=== PATIENT | female | born 1940 | race Caucasian/White ===

== ENCOUNTER 2018-06-05 07:11 | Day surgery (SDC) | payer OTHER, BC ==
[2018-06-05] MEDS ORDERED: LIDOCAINE 2% MPF 5 ML VIAL ONE (08:01)
[2018-06-05] MEDS ORDERED: TETRACAINE HCL 0.5% 2ML OPTH ONE (08:01)
[2018-06-05] MEDS ORDERED: BUPIVACAINE 0.25% PF 10 ML VIAL ONE (08:01)
[2018-06-05] MEDS: CYCLOPENTOLATE 1% OPTH 2 ML ONE ×3 (08:11→08:30)
[2018-06-05] MEDS: PHENYLEPHRINE 10% OPTH 5ML ONE ×3 (08:11→08:30)
[2018-06-05] MEDS ORDERED: NA CHLORIDE 0.9% 500 ML ONE (08:13)
[2018-06-05] MEDS ORDERED: LIDOCAINE HCL/PF 3.5% OPTH GEL ONE (08:13)
[2018-06-05] MEDS ORDERED: DUOVISC 1 KIT OPTH ONE (08:21)
[2018-06-05] MEDS ORDERED: NS 0.9% VIAL 10 ML ONE (08:21)
[2018-06-05] MEDS ORDERED: EPINEPHRINE/PF 1 MG/ML AMP ONE (08:21)
[2018-06-05] MEDS ORDERED: BALANCED SALT IRRIG PLAIN 500 ML BTL IRR ONE (08:21)
[2018-06-05] MEDS ORDERED: MOXIFLOXACIN HCL 10 DROPS/ML **OR USE OPTH ONE (08:22)
[2018-06-05] MEDS ORDERED: LIDOCAINE 1% MPF 2 ML AMPULE ONE (08:22)
[2018-06-05] MEDS ORDERED: MIDAZOLAM HCL 2 MG/2 ML INJ ONE (09:01)
[2018-06-05] MEDS ORDERED: FENTANYL CITR 100 MCG/2 ML ONE (09:01)
--- NOTE | 2018-06-05 10:08 | P.BOP ---
Preoperative diagnosis: Nuclear sclerotic and posterior subcapsular cataract OS Postoperative diagnosis: Same Primary procedure: Phacomeulsification with IOL OS Estimated blood loss: None Anesthesia: Local (Topical with subconjunctiva supplement and anesthesia for cataract surgery) Complications: None Implants: [id number] +20.5 @175 Transferred to: Other (Day surgery) Condition: Good
[2018-06-05 10:49] VITALS: BP 130/68; TEMP 97.8; O2SAT 100
--- NOTE | 2018-06-05 20:50 | OP ---
Date of Procedure: 06/05/2018 Surgeon: Bethanie Butler MD Anesthesiologist: Jade Smith CRNA and Isaac Crowell MD. Preoperative Diagnoses: Nuclear sclerotic cataract and posterior subcapsular cataract, left eye. Operation Performed: Phacoemulsification with intraocular lens implant, left eye. Anesthesia: Per cataract surgery. Complications: None. Description Of Procedure: In the operating room the patient was prepped and draped in the usual sterile fashion for ophthalmic surgery. A lid speculum was placed in the left eye. Two paracentesis sites were made superiorly and inferiorly in the limbal cornea. Viscoat was placed in the anterior chamber and a crescent blade was used to make a corneal groove and tunnel, and a keratome was used to enter the anterior chamber. Provisc was placed in the anterior chamber and a 360 degree capsulotomy was performed with a cystitome. The lens was hydrodissected with BSS and rotated freely. The lens was removed with a stop and chop technique. 14.54 phaco CDE was used to remove the lens. Residual cortex was removed with the irrigation and aspiration. Provisc was placed in the capsular bag. A VMD131 +20.5 at 175 lens was placed in the capsular bag without complications. Irrigation and aspiration were used to remove residual viscoelastic. The paracentesis sites were hydrated with BSS. The wound and paracentesis sites were inspected and found to be watertight. Vigamox 0.07 cc was placed intracamerally at the end of the procedure. The eye was irrigated with balanced salt solution. The eye was patched with a soft cotton patch and Azar metal shield. The patient was returned to day surgery in good condition. Comments: Akten was placed in the eye in day surgery and irrigated out of the eye with BSS in the OR. Preservative free 1% lidocaine was placed in the anterior chamber prior to Viscoat. The patient was having some discomfort in the middle of phacoemulsification despite the addition of Tetracaine drops and more 1% preservative free lidocaine intracamerally. The anesthesia was supplemented with 2% xylocaine mixed 50:50 with 0.25% bupivacaine. This was injected in the inferior conjunctiva with a 27 gauge needle. Discharge Instructions: Ms. Whelan is discharged to home in good condition and is to follow up with Dr. Butler in the morning. JHL/MODL Voice ID: [id number] Report ID: [id number] MTDD
== END 2018-06-05 10:36 | disposition home or self-care (01) ==
LOC: OR 07:11
PROVIDERS: ATTEND Ophthalmology Retina Specialist
PROC: 08RK3JZ Replacement of Left Lens with Synthetic Substitute, Percutaneous Approach (ICD-10-PCS; principal; 2018-06-05 09:10)
DX: H25.12 Age-related nuclear cataract, left eye (principal); H25.042 Posterior subcapsular polar age-related cataract, left eye; I10 Essential (primary) hypertension; M19.90 Unspecified osteoarthritis, unspecified site; E78.00 Pure hypercholesterolemia, unspecified; E07.9 Disorder of thyroid, unspecified; Z79.82 Long term (current) use of aspirin; Z87.891 Personal history of nicotine dependence
CPT/HCPCS: 66984; J0171; J2001; J3010; J2250; V2787

== ENCOUNTER 2018-08-28 06:56 | Day surgery (SDC) | payer OTHER, BC ==
[~2018-08-28 06:56] MED LIST: MORPHINE 4 MG/ML SYR ONE
[2018-08-28] MEDS ORDERED: NA CHLORIDE 0.9% 500 ML ONE (07:12)
[2018-08-28] MEDS ORDERED: CYCLOPENTOLATE 1% OPTH 2 ML ONE (07:19)
[2018-08-28] MEDS ORDERED: LIDOCAINE 2% MPF 5 ML VIAL ONE ×2 (07:19→09:03)
[2018-08-28] MEDS ORDERED: PHENYLEPHRINE 10% OPTH 5ML OPTH ONE ×2 (07:20→07:32)
[2018-08-28] MEDS ORDERED: PHENYLEPHRINE 10% OPTH 5ML ONE (07:20)
[2018-08-28] MEDS ORDERED: TETRACAINE HCL 0.5% 4ML OPTH ONE (07:20)
[2018-08-28] MEDS ORDERED: BUPIVACAINE 0.25% PF 10 ML VIAL ONE (07:20)
[2018-08-28] MEDS ORDERED: CYCLOPENTOLATE 1% OPTH 2 ML OPTH ONE ×2 (07:25→07:32)
[2018-08-28] MEDS ORDERED: NS 0.9% VIAL 10 ML ONE (08:15)
[2018-08-28] MEDS: DUOVISC 1 KIT OPTH ONE ×2 (08:28→08:38)
[2018-08-28] MEDS: BALANCED SALT IRRIG PLAIN 500 ML BTL IRR ONE ×2 (08:28→08:38)
[2018-08-28] MEDS: EPINEPHRINE/PF 1 MG/ML AMP ONE ×2 (08:28→08:38)
[2018-08-28] MEDS: MOXIFLOXACIN HCL 10 DROPS/ML **OR USE OPTH ONE ×3 (08:29→08:57)
[2018-08-28] MEDS ORDERED: PROPOFOL 200 MG/20 ML VIAL IV ONE (09:03)
--- NOTE | 2018-08-28 09:04 | P.BOP ---
Preoperative diagnosis: Nuclear sclerotic and posterior subcapsular cataract OD Postoperative diagnosis: Same Primary procedure: Phacoemulsification with IOL OD Estimated blood loss: None Anesthesia: Local (Subtenon's infusion with anesthesia for cataract surgery) Complications: None Implants: [id number] +21.0 Transferred to: Other (Day surgery) Condition: Good
[2018-08-28 09:49] VITALS: BP 123/59; TEMP 97.8; O2SAT 98
--- NOTE | 2018-08-28 21:03 | OP ---
Date of Procedure: 08/28/2018 Surgeon: Bethanie Butler MD Anesthesiologist: Lizbet Cortez CRNA and Jax Ritchie MD. Preoperative Diagnosis: Nuclear sclerotic and posterior subcapsular cataract, OD (right eye). Operation Performed: Phacoemulsification with intraocular lens implant, OD, right eye. Anesthesia: Per cataract surgery. Complications: None. Description Of Procedure: In day surgery, the patient was prepped with Betadine and draped. A conjunctival incision was made in the inferior nasal quadrant with Narcisa scissors. A sub-Tenon block consisting of a 1:1 mixture of 2% Xylocaine and 0.25% bupivacaine was placed through the conjunctival incision with a blunt cannula. A Honan balloon was placed over the eye and the patient was transferred to the operating room. In the operating room the patient was prepped and draped in the usual sterile fashion for ophthalmic surgery. A lid speculum was placed in the right eye. Two paracentesis sites were made superiorly and inferiorly in the limbal cornea. Viscoat was placed in the anterior chamber and a crescent blade was used to make a corneal groove and tunnel, and a keratome was used to enter the anterior chamber. Provisc was placed in the anterior chamber and a 360 degree capsulotomy was performed with a cystitome. The lens was hydrodissected with BSS and rotated freely. The lens was removed with a stop and chop technique. 13.90 phaco CDE was used to remove the lens. Residual cortex was removed with the irrigation and aspiration. Provisc was placed in the capsular bag. A ZCB00 +21.0 lens was placed in the capsular bag without complications. Irrigation and aspiration were used to remove residual viscoelastic. The paracentesis sites were hydrated with BSS. The wound and paracentesis sites were inspected and found to be watertight. Vigamox 0.07 cc was placed intracamerally at the end of the procedure. The eye was irrigated with balanced salt solution. The eye was patched with a soft cotton patch and Azar metal shield. The patient was returned to day surgery in good condition. Comments: Discharge Instructions: Ms. Whelan is discharged to home in good condition and is to follow with Dr. Butler in the morning. ANDREA/GABRIELLE Voice ID: [id number] Report ID: [id number] MTDD
== END 2018-08-28 09:25 | disposition home or self-care (01) ==
LOC: OR 06:56
PROVIDERS: ATTEND Ophthalmology Retina Specialist
PROC: 08RJ3JZ Replacement of Right Lens with Synthetic Substitute, Percutaneous Approach (ICD-10-PCS; principal; 2018-08-28 08:30)
DX: H25.11 Age-related nuclear cataract, right eye (principal); H25.041 Posterior subcapsular polar age-related cataract, right eye; I10 Essential (primary) hypertension; E78.00 Pure hypercholesterolemia, unspecified; Z79.899 Other long term (current) drug therapy
CPT/HCPCS: 66984; J2704; J0171

== ENCOUNTER 2021-11-10 05:50 | Observation (INO) | payer OTHER, BC ==
--- NOTE | 2021-11-04 10:20 | RAD REPORT ---
EXAM DESCRIPTION: Octaviano Rollins And Kaylene (2 Views)11/04/2021 9:45 am CLINICAL HISTORY: Preop for knee replacement. Hypertension COMPARISON: 2019 FINDINGS: Lungs are mildly to moderately hyperaerated. The lungs appear clear of acute infiltrate. The heart is normal size IMPRESSION: No acute abnormalities displayed
[2021-11-04 13:23] LABS: Urine Appearance CLEAR (Clear); Urine Bilirubin NEGATIVE (Negative); Urine Blood NEGATIVE (Negative); Urine Color YELLOW (Yellow); Urine Glucose NEGATIVE (Negative); Urine Protein NEGATIVE (Negative); Urine Specific Gravity >1.030 (1.005-1.030); Urine Urobilinogen 0.2 mg/dL (0.2-1.0); Urine pH 5.5 (5.0-7.0)
[2021-11-04 13:24] LABS: Urine Microscopic Reflex ORDER UMIC
[2021-11-04 13:41] LABS: Urine Bacteria <20 /HPF (<20); Urine Mucus 1+ /HPF (NONE SEEN); Urine RBC <5 /HPF (NONE SEEN)
[2021-11-09 09:27] LABS: Protime INR 1.04
[2021-11-10] MEDS ORDERED: CEFAZOLIN 2 GM IN 0.9% NACL 2 GM/100 ML BAG ONE (06:08)
[2021-11-10] MEDS ORDERED: Ringers Lactate 1,000 ML IV ONE ×2 (06:08→08:03)
[2021-11-10] MEDS ORDERED: GABAPENTIN 100 MG CAP ONE (06:09)
[2021-11-10] MEDS ORDERED: Oxycodone HCl/Acetaminophen 1 TAB TAB ONE (06:10)
[2021-11-10] MEDS ORDERED: CELECOXIB 100 MG CAPSULE ONE (06:10)
[2021-11-10] MEDS ORDERED: ACETAMINOPHEN 500 MG TAB ONE (06:10)
[2021-11-10] MEDS ORDERED: MIDAZOLAM HCL 2 MG/2 ML INJ ONE (06:13)
[2021-11-10] MEDS ORDERED: FENTANYL CITR 100 MCG/2 ML ONE (06:13)
[2021-11-10] MEDS ORDERED: NS 0.9% VIAL 10 ML ONE (06:13)
[2021-11-10] MEDS ORDERED: ONDANSETRON 4 MG/2 ML VIAL ONE (06:13)
[2021-11-10] MEDS ORDERED: KETAMINE HCL 500 MG/5 ML VIAL ONE (06:13)
[2021-11-10] MEDS ORDERED: LIDOCAINE 2% MPF 5 ML VIAL ONE ×2 (06:13→06:21)
[2021-11-10] MEDS ORDERED: propofoL 200 MG/20 ML VIAL IV ONE (06:13)
[2021-11-10] MEDS ORDERED: dexAMETHasone 4 MG/ML VIAL ONE (06:21)
[2021-11-10] MEDS ORDERED: BUPIVACAINE 0.25% PF 10 ML VIAL ONE (06:21)
[2021-11-10] MEDS ORDERED: HYDROMORPHONE HCL 1 MG/ML INJ ONE (06:21)
[2021-11-10] MEDS ORDERED: BUPIVACAINE 0.5% Inj,MDV 50 mL VIAL ONE (06:22)
[2021-11-10] MEDS ORDERED: EPHEDRINE SULF 50 MG/ML VIAL ONE (07:25)
[2021-11-10] MEDS: TRANEXAMIC ACID 1,000 MG/10 ML VIAL IV ONE ×2 (07:35→09:30)
[2021-11-10] MEDS ORDERED: KETOROLAC 30 MG/ML INJ ONE (09:30)
[2021-11-10] MEDS ORDERED: ONDANSETRON 4 MG/2 ML VIAL IV PRN (09:31)
[2021-11-10] MEDS ORDERED: HYDROCODONE/APAP 7.5/325 MG TAB PO PRN (09:31)
[2021-11-10] MEDS ORDERED: DOCUSATE NA 100 MG CAP PO PRN (09:31)
--- NOTE | 2021-11-10 09:31 | P.BOP ---
Preoperative diagnosis: right knee arthritis Postoperative diagnosis: same Primary procedure: right total knee arthoplasty Estimated blood loss: 100c Anesthesia: General Complications: None Transferred to: Recovery Room Condition: Good
--- OUTSIDE RECORDS SUMMARY | 2021-11-10 11:12 | XMS REPORT | Continuity of Care Document ---
:1940 Author Organization [facility] t Address [address] [place] [address] Care Team Providers Name Role Phone [phone] Attending Clinician Unavailable Atif Attending Clinician Unavailable Doctor Unassigned, Name Attending Clinician Unavailable HENRIETTA KAMARA Attending Clinician Unavailable [id number] Admitting Clinician Unavailable HENRIETTA KAMARA Admitting Clinician Unavailable Payers Payer Name Policy Type Policy Number Effective Date Expiration Date S ource Problems Condition Condition Condition Status Onset Resolution Last Treating Co mments Source Name Details Category Date Date Treatment Clinician Date Post-op Post-op Disease Active 2018-05 [facility] pain pain 0-09 ity of 00:00: [address] Screening Screening Disease Active 2016-05 Overview: Univers for for 0-19 Added ity of colorectal colorectal 00:00: automatic [place] cancer cancer 00 ally from Medical request Branch for surgery [id number] 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 Allergies, Adverse Reactions, Alerts Allergy Allergy Status Severity Reaction(s) Onset Inactive Treating Comm ents Source Name Type Date Date Clinician NO KNOWN Drug Active Univers ALLERGIE Class ity of S [facility] Social History Social Habit Start Date Stop Date Quantity Comments Source History of tobacco Cigarette Smoker [place] of use [facility] Cigarettes smoked 2019-02-22 2019-02-22 Univers ity of current (pack per 00:00:00 00:00:00 ) - Reported Branch Alcohol intake 2019-02-22 2019-02-22 University of 00:00:00 00:00:00 [facility] Tobacco Comment 2019-02-21 2019-02-21 Quit 1974 Universit y of 00:00:00 00:00:00 [facility] Alcohol Comment 2019-02-21 2019-02-21 infrequently Univers ity of 00:00:00 00:00:00 [facility] Smoking Status Start Date Stop Date Source Former smoker 2019-02-22 00:00:00 2019-02-22 00:00:00 Universi ty of [facility] Medications Ordered Filled Start Stop Current Ordering Indication Dosage Frequency Signature Comments Components Source Medication Medication Date Date Medication? Clinician (SIG) Name Name No known No [facility] No known No [facility] medications [facility] Procedures Procedure Date / Time Performed Performing Clinician [facility] e REFERRAL- 2019-06-13 06:01:00 Doctor Unassigned, Anita Tellezer [facility] REQUEST/RESPONSE Name [facility] Encounters Start End Encounter Admission Attending Care Care Encounter Source Date/Time Date/Time Type Type Clinicians Facility Department ID 2021-11-09 Outpatient 3 [id number] [facility] REF [id number] [facility] 11:41:07 062021-11-04 Outpatient 3 [id number] [facility] REF [id number] [facility] 09:15:31 6212021-11-04 Outpatient SHELBY Srivastava [facility] [id number] Common 08:04:01 [facility] 2021-08-31 Outpatient [facility] [id number] Common 13:30:03 [facility] 2021-08-13 Outpatient [facility] [id number] Common 14:16:02 [facility] 2019-07-26 2019-07-26 Patient Doctor SAI [id number] Univers 00:00:00 00:00:00 Secure Msnilay UnassignedARI [id number] ity of [facility] [id number] [place] as [id number] [facility] [address] 2019-07-26 2019-07-26 Patient Doctor SAI [id number] 00:00:00 00:00:00 Secure Msg Unassigned, ARI [id number] [facility] [id number] [id number] 2019-07-04 2019-07-04 Patient Doctor [facility] [[email or web address]] [id number] Univers 00:00:00 00:00:00 Secure Msg Unassigned, PRIMARY [id number] ity [place] [facility] [id number] [facility] [id number] [address] 2019-07-04 2019-07-04 Patient Doctor [facility] [[email or web address]] [id number] 00:00:00 00:00:00 Secure Msg Unassigned, PRIMARY [id number] [facility] [id number] [facility] [id number] 2019-06-13 2019-06-13 Orders Doctor SAI [id number] Univers 00:00:00 00:00:00 Only Unassigned, ARI [id number] [facility] [id number] [place] as [id number] [facility] [address] 2019-06-13 2019-06-13 Orders Doctor SAI [id number] 00:00:00 00:00:00 Only Unassigned, ARI [id number] [facility] [id number] 2019-02-21 2019-02-22 Outpatient R ASAD, [facility] [[email or web address] SOR [id number] Univers 08:12:00 16:29:00 IMELDA martinez of [facility] Results This patient has no known results.
[2021-11-10] MEDS: HYDROMORPHONE HCL 1 MG/ML INJ ONE ×3 (11:20→11:30)
[2021-11-10 11:56] VITALS: BMI 26.1
[2021-11-10] MEDS ORDERED: DICLOFENAC SODIUM TOP PRN (15:23)
--- NOTE | 2021-11-10 15:23 | P.CNS ---
Date of Consult: 11/10/21 Reason for Consult: Medical management Requesting Physician: Randy Prather Chief Complaint: Patient was admitted for left total knee arthroplasty History of Present Illness: patient is a 81-year-old female who was admitted to the hospital for left total knee arthroplasty. Patient has a history of hypertension, hypothyroidism, dyslipidemia, but she has been doing well medically. She has been having arthritic pain in the left knee for a long time so she decided to have a knee replacement. She has done well postoperatively. Clinically she appears to be doing well. She will work with physical therapy. Will do DVT prophylaxis. Also patient will need pain control. Will monitor her for the next 24-48 hours if she does well we will discharge her with home health. Allergies No Known Drug Allergies Allergy (Verified 11/10/21 06:46) Unknown Home Medications: Acetaminophen [Tylenol Arthritis] 2 tab PO Q8HP PRN 11/04/21 Acetaminophen/Diphenhydramine [Tylenol Pm Ex-Strength Caplet] 1 each PO BEDTIME 11/04/21 Amlodipine Besylate 5 mg PO BEDTIME 11/04/21 Aspirin [Aspirin EC 81 MG] 81 mg PO DAILY 11/04/21 Diclofenac Sodium [Voltaren Arthritis Pain] 1 ashley TP PRN PRN 11/04/21 Donepezil [Aricept] 5 mg PO BEDTIME 11/04/21 Ginkgo/Choline Bitartrate [Brainstrong Memory Supp Caplet] 1 each PO DAILY 11/04/21 Levothyroxine Sodium [Levoxyl] 0.075 mg PO DAILY 11/04/21 Lovastatin [Altoprev] 20 mg PO BEDTIME 11/04/21 Olmesartan Medoxomil 20 mg PO BEDTIME 11/04/21 - Past Medical/Surgical History Diabetic: No -: HTN -: Hypothroid -: Hyperlipidemia -: Carpel Tunnel -: eye surgery (cannot remember) - Family History Mother Notes: Alzheimers, lived into 90's Father Medical History: Heart disease - Social History Smoking Status: Former smoker Alcohol use: Yes CD- Drugs: No Caffeine use: Yes Place of Residence: Home Review of Systems 10-point ROS is otherwise unremarkable Physical Examination Temp Pulse Resp BP Pulse Ox 98 F 89 14 116/58 L 95 11/10/21 11:02 11/10/21 11:53 11/10/21 11:53 11/10/21 11:53 11/10/21 11:53 General: Alert, In no apparent distress, Oriented x3 HEENT: Atraumatic, PERRLA, Mucous membr. moist/pink, EOMI, Sclerae nonicteric Neck: Supple, 2+ carotid pulse no bruit, No LAD, Without JVD or thyroid abnormality Respiratory: Clear to auscultation bilaterally, Normal air movement Cardiovascular: Regular rate/rhythm, Normal S1 S2 Gastrointestinal: Normal bowel sounds, No tenderness Musculoskeletal: No clubbing, Swelling, Tenderness Neurological: Normal gait, Normal speech, Normal tone, Normal affect Lymphatics: No axilla or inguinal lymphadenopathy - Problems (1) History of total left knee replacement Current Visit: Yes Status: Acute (2) HTN (hypertension) Current Visit: Yes Status: Acute (3) Hypothyroid Current Visit: Yes Status: Acute (4) Dyslipidemia Current Visit: Yes Status: Acute Conclusions/ Impression: -management per Orthopedic surgery -PT evaluation -DVT prophylaxis -advanced diet as tolerated -strict blood pressure control -monitor electrolytes and blood count closely -Dc Greer catheter in 24 hr -pain control Critical Care: No Time Spent Managing Pts care (In Minutes): 45
[2021-11-10] MEDS: CEFAZOLIN 1 GM in NA CHLORIDE 0.9% 50 ML IVPB SCH (15:58)
[2021-11-10] MEDS ORDERED: ACETAMINOPHEN 325 MG TABLET PO PRN (16:52)
[2021-11-10] MEDS ORDERED: VALSARTAN 80 MG TAB PO SCH (21:00)
[2021-11-10] MEDS ORDERED: ATORVASTATIN 10 MG TAB PO SCH (21:00)
[2021-11-10] MEDS ORDERED: ACETAMINOPHEN 325 MG TABLET PO SCH (21:00)
[2021-11-10] MEDS ORDERED: AMLODIPINE 5 MG TAB PO SCH (21:00)
[2021-11-10] MEDS ORDERED: DONEPEZIL HCL 5 MG TAB PO SCH (21:00)
[2021-11-10] MEDS ORDERED: ACETAMINOPHEN 500 MG TAB PO SCH (21:00)
[2021-11-10] MEDS ORDERED: DIPHENHYDRAMINE 25 MG TAB/CAP PO SCH (21:00)
--- NOTE | 2021-11-10 21:35 | OP ---
Date of Procedure: 11/10/2021 Surgeon: Randy Prather MD Preoperative Diagnosis: Left knee severe arthritic changes. Postoperative Diagnosis: Left knee severe arthritic changes. Procedure: Left total knee arthroplasty using the Biomet Vanguard System. Estimated Blood Loss: 100 cc. Complications: There were no complications. Indications: Ms. Whelan is an 81-year-old female who unfortunately suffers with debilitating arthrit ic symptoms as well as arthritis of her knee despite conservative management. Risks, benefits, and a lternatives of different methods treatments were again discussed with her and at this time, she opts for a total knee arthroplasty and the specific risks were discussed regarding this as well. She stat es she understands things as presented. Procedure In Detail: The patient was taken to the operating room, placed in supine position. Genera l anesthesia was obtained by Anesthesia staff. Following this, a well-padded tourniquet was placed o n superior left thigh. Left lower extremity was then prepped and draped in usual sterile fashion for the procedure. Following this the leg was then elevated, gently exsanguinated, and knee was bent. Tourniquet was raised. A standard anterior incision was taken down carefully through skin and soft t issues. Meticulous hemostasis has been maintained using Bovie electrocautery. This leads down to th e extensor mechanism. The superomedial border of the patella was then marked and a standard medial p arapatellar arthrotomy was then performed with approximately 20 cc of rather normal-appearing synovia l fluid. Following this, a slight amount of the fat pad as well as the medial meniscus and ACL were resected. The knee was then brought to extension and the patella was everted. The medial and latera l meniscus were then resected as well as the posterior cruciate ligament. The intramedullary alignme nt guide was then placed in standard fashion. After this it was then sized to a size 62.5. The cuts were made and attention was then turned to the tibia. The tibia was then cut at appropriate depth a nd sized to a size 75. It is possible that we could have used a 79, however, this appeared to overha ng and was just a little bit too large. Following this, the trial tibia was then placed and it was b rought down to extension. It appears to have equal flexion and extension gaps and appears to be well aligned. The patella was calipered and cut and the trial patella was then placed. The knee was the n brought through full range of motion with no sign of patellar maltracking. After this, the box was then cut in the femur using standard technique and the bone plug was placed. The tibia was punched and the surfaces were prepped for cementation. After this, the final patella, femur and tibia are th en cemented using the trial poly as the spacer. After the cement was allowed to harden and all unsup ported cement was removed, the knee was brought through full range of motion. Patella appears to tra ck ideally. It appears to be stable to stress testing. It is assessed for any more aberrant cement. The final poly was then placed and locked using the locking bar. It was then brought through a ful l range of motion and appears to be functioning well. The wound was again irrigated and the extensor mechanism was repaired using heavy Ethibond sutures and this was followed by closure of skin with Vi cryl followed by clifford. The patient was then placed in a well-padded sterile dressing. /GABRIELLE Voice ID: [id number] Report ID: [id number]
[2021-11-11] MEDS: CEFAZOLIN 1 GM in NA CHLORIDE 0.9% 50 ML IVPB SCH ×2 (00:10→08:27)
[2021-11-11 04:43] LABS: Hematocrit 34.3 % (36.0-45.0)
[2021-11-11] MEDS: ENOXAPARIN 30 MG/0.3 ML SQ SCH ×2 (06:09→17:51)
[2021-11-11] MEDS ORDERED: LEVOTHYROXINE SOD 0.075 MG TAB PO SCH (09:00)
[2021-11-11] MEDS ORDERED: [UNRECOGNIZED DRUG - OTHER] PO SCH (09:00)
[2021-11-11] MEDS ORDERED: GINKGO PO SCH (09:00)
[2021-11-11 12:04] VITALS: O2SAT 94
--- NOTE | 2021-11-11 15:27 | P.DS ---
Discharge Date: 11/11/21 Disposition: TRANSFER TO INPATIENT REHAB Discharge Condition: GOOD Reason for Admission: Patient was admitted for left total knee arthroplasty - Problems (1) History of total left knee replacement Current Visit: Yes Status: Acute (2) HTN (hypertension) Current Visit: Yes Status: Acute (3) Hypothyroid Current Visit: Yes Status: Acute (4) Dyslipidemia Current Visit: Yes Status: Acute Brief History of Present Illness: patient is a 81-year-old female who was admitted to the hospital for left total knee arthroplasty. Patient has a history of hypertension, hypothyroidism, dyslipidemia, but she has been doing well medically. She has been having arthritic pain in the left knee for a long time so she decided to have a knee replacement. She has done well postoperatively. Clinically she appears to be doing well. She will work with physical therapy. Will do DVT prophylaxis. Also patient will need pain control. Will monitor her for the next 24-48 hours if she does well we will discharge her with home health. Hospital Course: Patient has done well during hospital stay. Patient is working with physical therapy. [facility]. Patient will continue with anticoagulation and pain control and will follow-up with orthopedic in 1 week. Vital Signs/Physical Exam: Temp Pulse Resp BP Pulse Ox 96.2 F L 75 16 116/50 L 97 11/11/21 12:00 11/11/21 12:00 11/11/21 12:29 11/11/21 12:00 11/11/21 12:29 General: Alert, In no apparent distress, Oriented x3 Laboratory Data at Discharge: Hgb 11.7 g/dL (12.0-15.0) L 11/11/21 04:14 Hct 34.3 % (36.0-45.0) L 11/11/21 04:14 PT 11.4 SECONDS (9.5-12.5) 11/09/21 08:54 INR 1.04 11/09/21 08:54 APTT 35.7 SECONDS (24.3-36.9) 11/09/21 08:54 Home Medications: Acetaminophen [Tylenol Arthritis] 2 tab PO Q8HP PRN 11/04/21 Acetaminophen/Diphenhydramine [Tylenol Pm Exstr 500-25Mg Cplt] 1 each PO BEDTIME 11/04/21 Amlodipine Besylate 5 mg PO BEDTIME 11/04/21 Aspirin [Aspirin EC 81 MG] 81 mg PO DAILY 11/04/21 Diclofenac Sodium [Voltaren Arthritis Pain] 1 ashley TP PRN PRN 11/04/21 Donepezil [Aricept*] 5 mg PO BEDTIME 11/04/21 Ginkgo/Choline Bitartrate [Brainstrong Memory Supp Caplet] 1 each PO DAILY 11/04/21 Levothyroxine Sodium [Levoxyl] 0.075 mg PO DAILY 11/04/21 Lovastatin [Altoprev] 20 mg PO BEDTIME 11/04/21 Olmesartan Medoxomil 20 mg PO BEDTIME 11/04/21 Hydrocodone 7.5/APAP 325 [Pender 7.5/325 mg*] 1 tab PO Q4H PRN #30 tab 11/11/21 Rivaroxaban [Xarelto] 10 mg PO DAILY #20 tablet 11/11/21 New Medications: Hydrocodone 7.5/APAP 325 [Pender 7.5/325 mg*] 1 tab PO Q4H PRN #30 tab PRN Reason: Pain Scale 8-10 (Severe) Rivaroxaban [Xarelto] 10 mg PO DAILY #20 tablet Physician Discharge Instructions: -DC IV and [facility] to [facility] -Follow-up with PCP in 1 to 2 weeks -Follow-up with orthopedics in 1 to 2 weeks -Please call Dr. Somers at [phone] if any questions regarding hospital stay -Please call nursing station at [phone] if any nursing or medication questions -Return to the emergency room if symptoms worsen Diet: AHA Activity: Fall precautions Followup: Feroz Srivastava MD [Primary Care Provider] - Time spent managing pt's care (in minutes): 35
[2021-11-11 16:11] VITALS: BP 102/52; TEMP 96.3
[2021-11-12] MEDS ORDERED: ASPIRIN EC 81 MG TAB PO SCH (09:00)
== END 2021-11-11 18:42 ==
LOC: OR 05:50 → 4TH 11:09 → INTOOBSV 11:09
PROVIDERS: ADMIT Orthopaedic Surgery; ATTEND Orthopaedic Surgery
PROC: 0SRD069 Replacement of Left Knee Joint with Oxidized Zirconium on Polyethylene Synthetic Substitute, Cemented, Open Approach (ICD-10-PCS; principal; 2021-11-11)
DX: M17.12 Unilateral primary osteoarthritis, left knee (principal); I10 Essential (primary) hypertension; E03.9 Hypothyroidism, unspecified; E78.5 Hyperlipidemia, unspecified; Z79.01 Long term (current) use of anticoagulants; Z79.82 Long term (current) use of aspirin; Z79.899 Other long term (current) drug therapy; Z87.891 Personal history of nicotine dependence; Z20.822 Contact with and (suspected) exposure to COVID-19; Z82.0 Family history of epilepsy and other diseases of the nervous system; Z82.49 Family history of ischemic heart disease and other diseases of the circulatory system; Z83.2 Family history of diseases of the blood and blood-forming organs and certain disorders involving the immune mechanism
CPT/HCPCS: 87088; 87086; 36415 ×2; 86900; 86850; 85610; 86901; 88304; 88311; 85730; 85018; 85014; 71046; 97110; 97116 ×3; 97139; 97161; 97530 ×4; 94010 ×2; 27447; U0003; G0379; J2704; J1100; J1650 ×2; J2250; J3010; J1170 ×2; J0690 ×4; J7120 ×2; J2405 ×2; G0378 ×2; 81003; 81015

== ENCOUNTER 2022-03-29 10:19 | Emergency (ER) | payer OTHER, BC ==
--- OUTSIDE RECORDS SUMMARY | 2022-03-29 10:25 | XMS REPORT | Continuity of Care Document ---
:1940 Author Organization [facility] t Address [address] [place] [address] Care Team Providers Name Role Phone Dmitriy Srivastava Attending Clinician Unavailable [id number] Attending Clinician Unavailable Wolfgang Le Attending Clinician Isak Hernadez Anavella Attending Clinician Unava ilable Doctor Unassigned, [place] Attending Clinician Unavailable IMELDA KAMARA Attending Clinician Unavailable [id number] Admitting Clinician Unavailable Kingston Hernadez Anav Admitting Clinician Unavailable IMELDA KAMARA Admitting Clinician Unavailable Payers Payer Name Policy Type Policy Number Effective Date Expiration Date Carol Ann singletary Blue [employer] 6 [id number] 2017 [facility] t Blue Shield of 00:00:00 - [facility] [id number] BCTI BCTI [id number] Problems Condition Condition Condition Status Onset Resolution Last Treating Co mments Source Name Details Category Date Date Treatment Clinician Date Post-op Post-op Disease Active 2018-05 Univers pain pain 0-09 ity of 00:00: [place] 00 Medical Branch Screening Screening Disease Active 2016-05 Overview: Univers for for 0-19 Added ity of colorectal colorectal 00:00: automatic [place] cancer cancer 00 ally from Medical request Branch for surgery [id number] Actinic Actinic Disease Active Univers keratosis keratosis 7-25 ity of 00:00: [place] Medical [facility] Carcinoma Carcinoma Disease Active Overview: 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 REG, Medical Abstracte r [id number]: [id number] Diagnosis Term Event Manager Utility Confusiona Confusion Problem Active 2022-01-02 Memoria l state al state 23:01:43 l (disorder) (disorder) He rmann Active Problem 01/02/2022 [facility] Hyperlipid Hyperlipi Problem Active 2022-01-02 Memoria emia demia 23:01:43 l (disorder) (disorder) He rmann Active Problem 01/02/2022 [facility] Hypertensi Hypertens Problem Active 2022-01-02 Memoria ve adilene 23:01:43 l disorder, disorder, Herm darwin systemic systemic arterial arterial (disorder) (disorder) Active Problem 01/02/2022 [facility] Hypothyroi Problem Active 2022-01-02 M emoria dism Hypothyroi 23:01:43 l (disorder) dism Vasquez n (disorder) Active Problem 01/02/2022 [facility] Tremor Tremor Problem Active 2022-01-02 Corbin siomara (finding) (finding) 23:01:43 l Active [place] Problem 01/02/2022 [facility] Amnesia Amnesia Problem Active 2022-01-02 Me moria (finding) (finding) 23:01:43 l Active [place] Problem 01/02/2022 [facility] Impaired Impaired Problem Active 2022-01-02 Memoria cognition cognition 23:01:43 l (finding) (finding) Herm darwin Active Problem 01/02/2022 [facility] [id number] Pain, Problem [place] Commo n [id number] joint, Spirit knee, - [facility] right [facility] [id number] Status Problem Active Commo n 105 post total [facility] left knee - [facility] replacemen [facility] [id number] Primary Problem Active Comm on osteoarthr Spirit itis of - [facility] left knee [facility] Allergies, Adverse Reactions, Alerts Allergy Allergy Status Severity Reaction(s) Onset Inactive Treating Comm ents Source Name Type Date Date Clinician NO KNOWN Drug Active [facility] ALLERGIE Class ity of [facility] Social History Social Habit Start Date Stop Date Quantity Comments Source History of Tobacco [facility] - Use [facility] Sex Assigned At [facility] haile - [facility] Social History 2019-07-11 2019-07-11 [facility] H ermann 17:10:23 17:10:23 Cigarettes smoked 2019-02-22 2019-02-22 Univers ity of current (pack per 00:00:00 00:00:00 [facility] ) - Reported Branch Alcohol intake 2019-02-22 2019-02-22 University of 00:00:00 00:00:00 [facility] Tobacco Comment 2019-02-21 2019-02-21 Quit 1975 Universit y of 00:00:00 00:00:00 [facility] Alcohol Comment 2019-02-21 2019-02-21 infrequently Univers ity of 00:00:00 00:00:00 [facility] Smoking Status Start Date Stop Date Source Former Smoker 2021-12-25 00:00:00 2021-12-25 00:00:00 [facility] pirit [facility] Medications Ordered Filled Start Stop Current Ordering Indication Dosage Frequency Signature Comments Components Source Medication Medication Date Date Medication? 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, Weight Voltaren Yes 50 mg = 1 Corbin siomara 2-10 tab, PO, l 19:37: TID, PRN [place] 00 pain, # 30 tab, 0 Refill(s) Aspirin 81 Yes 81 mg = 1 Me moria MG Enteric 2-26 tab, PO, l Coated 17:44: Daily, # [place] Tablet 00 90 tab, 3 Refill(s), other Lisinopril Yes PO, Daily, M emoria 2-26 0 l 16:53: Refill(s) [place] 00 amLODIPine Yes 5 mg = 1 Mem oria 5 mg oral 2-26 tab, PO, l tablet 16:53: Daily, # [place] 00 30 tab, 0 Refill(s) Myrbetriq 2019-0 No PO, Daily, Me moria 2-26 0 l 16:53: Refill(s) [place] 00 24 HR Yes 50 mg = 1 Memoria mirabegron 2-26 tab, PO, l 50 MG 16:53: Daily, # [place] Extended 00 30 tab, 0 Release Refill(s) Tablet [Myrbetriq] Levothroid Yes 75 Memoria 75 mcg 2-26 microgram l (0.075 mg) 16:53: = 1 tab, Her king oral tablet 00 PO, Daily, # 30 tab, 0 Refill(s) No known No Univers medications [facility] No known No Univers medications [facility] No known No Univers medications [facility] Donepezil Donepezil No Donepezil HCl HCl HCl Attica Attica No Attica Lovastatin Lovastatin No Lovastatin Levoxyl Levoxyl No Levoxyl amLODIPine amLODIPine No amLODIPine Besylate Besylate Besylate Olmesartan Olmesartan No Olmesartan Medoxomil Medoxomil Medoxomil Donepezil Donepezil No Donepezil HCl HCl HCl Attica Attica No Attica Lovastatin Lovastatin No Lovastatin Levoxyl Levoxyl No Levoxyl amLODIPine amLODIPine No amLODIPine Besylate Besylate Besylate Olmesartan Olmesartan No Olmesartan Medoxomil Medoxomil Medoxomil Vital Signs Vital Name Observation Time Observation Value Comments Source height 2021-12-25 08:30:00 68 [in_i] [facility] weight 2021-12-25 08:30:00 177 [lb_av] [facility] bmi 2021-12-25 08:30:00 26.91 kg/m2 [facility] blood pressure 2021-12-25 08:30:00 130 mm[Hg] [facility] - systolic [facility] blood pressure 2021-12-25 08:30:00 70 mm[Hg] [facility] - diastolic [facility] Systolic (mm Hg) 2021-08-25 19:43:00 Corbin rial [place] Diastolic (mm Hg) 2021-08-25 19:43:00 Mem orial [place] Heart Rate 2021-08-25 19:43:00 [facility] [place] Respitory Rate 2021-08-25 19:43:00 Memori al [place] Height 2021-08-25 19:43:00 167.64 cm [facility] [place] Weight 2021-08-25 19:43:00 [facility] [place] BMI Calculated 2021-08-25 19:43:00 Memori al [place] Systolic (mm Hg) 2021-06-25 19:25:00 Corbin rial [place] Diastolic (mm Hg) 2021-06-25 19:25:00 Mem orial [place] Heart Rate 2021-06-25 19:25:00 [facility] [place] Height 2021-06-25 19:25:00 170.18 cm [facility] [place] Weight 2021-06-25 19:25:00 [facility] [place] BMI Calculated 2021-06-25 19:25:00 Memori al [place] Systolic (mm Hg) 2019-07-11 16:49:00 Corbin rial [place] Diastolic (mm Hg) 2019-07-11 16:49:00 Mem orial [place] Heart Rate 2019-07-11 16:49:00 [facility] [place] Respitory Rate 2019-07-11 16:49:00 Memori al [place] Height 2019-07-11 16:49:00 170.18 cm [facility] [place] Weight 2019-07-11 16:49:00 [facility] [place] BMI Calculated 2019-07-11 16:49:00 Memori al [place] Procedures Procedure Date / Time Performing Clinician Source Performed REFERRAL- 2019-06-13 06:01:00 Doctor Unassigned, No [facility] REQUEST/RESPONSE Name Medical Branch Hip replacement [facility] [place] Encounters Start End Encounter Admission Attending Care Care Encounter Source Date/Time Date/Time Type Type Clinicians Facility Department ID 2021-12-[address] [facility] [id number] Common 12:14:01 Dmitriy [facility] - [facility] 2021-12-[address] [facility] [id number] Common 08:23:01 Dmitriy [facility] 2021-11-25 Outpatient Atif STBARBIE STLMLC [id number] Common 10:08:02 Dmitriy [facility] 2021-11-09 Outpatient [id number] ENCPL REF [id number] [facility] 11:41:07 [facility] [place] 2021-11-04 Outpatient 3 [id number] ENCPL REF [id number] [facility] 09:15:31 [facility] [place] 2021-11-04 Outpatient Atif STBARBIE STLC [id number] Common 08:04:01 Dmitriy [facility] 2021-08-31 Outpatient STLMLC STLC [id number] Common 13:30:03 [facility] 2021-08-13 Outpatient STLMLC STLC [id number] Common 14:16:02 [facility] 2022-01-20 2022-01-20 (TEL) STLC STLC [id number] Co mmon 00:00:00 00:00:00 [facility] 2021-12-31 2021-12-31 Ambulatory nullFlavo MNA [id number] Memoria 19:45:00 19:45:00 Pre-Reg r Neurology 05 l Candie [place] 2021-12-31 2021-12-31 Outpatient MHIE MERCEDESIE [id number] Memoria 14:45:00 14:45:00 05 l [place] 2021-12-31 2021-12-31 Outpatient MERCEDES LeMISCHER MHMISCHER [id number] 14:45:00 14:45:00 Wolfgang Joe Draper 2021-12-25 2021-12-25 NON-BILLAB STLMLC STLC [id number] Common 00:00:00 [facility]:00:00 [facility] 2021-11-11 2021-11-25 Inpatient 3 [facility] ENCPL ORJ [id number] Encompa 20:05:00 13:30:00 heruy, 0629 ss [facility] [place]ation [place] 2021-08-25 2021-08-26 Outpatient nullFlavo MNA [id number] Memoria 19:45:00 04:59:59 r Neurology 04 l Cadnie [place] 2021-08-25 2021-08-25 Outpatient Rey MHMISCHER MHMISCHER [id number] 14:45:00 23:59:59 Wolfgang 04 Baron 2021-08-25 2021-08-25 Outpatient MHIE MHIE [id number] Memoria 14:45:00 14:45:00 04 ozzie [place] 2021-06-25 2021-06-26 Outpatient nullFlavo MNA [id number] Memoria 19:15:00 05:59:59 r Neurology 03 ozzie [place] 2021-06-25 2021-06-25 Outpatient Rey MHMISCHER MHMISCHER [id number] 13:15:00 23:59:59 Wolfgang 03 Baron 2021-06-25 2021-06-25 Outpatient MHIE MHIE [id number] Memoria 13:15:00 13:15:00 03 ozzie Qureshi 2019-08-08 2019-08-08 Ambulatory nullFlavo MNA [id number] Memoria 18:00:00 18:00:00 Pre-Reg r Neurology 01 ozzie Candie Qureshi 2019-08-08 2019-08-08 Outpatient MHIE MHIE [id number] Memoria 13:00:00 13:00:00 01 ozzie [place] 2019-08-08 2019-08-08 Outpatient MERCEDES LeMISCHER MHMISCHER [id number] 13:00:00 13:00:00 Wolfgang 01 Baron 2019-08-03 2019-08-03 Ambulatory nullFlavo MNA [id number] Memoria 20:30:00 20:30:00 Pre-Reg r Neurology 02 l Candie Qureshi 2019-08-03 2019-08-03 Outpatient MHIE MHIE [id number] Memoria 15:30:00 15:30:00 02 ozzie Qureshi 2019-08-03 2019-08-03 Outpatient MERCEDES LeMISCHER MHMISCHER [id number] 15:30:00 15:30:00 Wolfgang 02 Baron 2019-07-26 2019-07-26 Patient Doctor SAI [id number] 00:00:00 00:00:00 Secure Msg Unassigned, ARI [id number] [place] [facility] [id number] [id number] 2019-07-26 2019-07-26 Patient Doctor SAI [id number] Univers 00:00:00 00:00:00 Secure Msg Unassigned, ARI [id number] ity of [place] [facility] [id number] [place] as [phone] [facility] 019 Branch 2019-07-16 2019-07-18 Outside nullFlavo MNA [id number] Memoria 15:40:52 05:59:59 Medical r Neurology 00 l Records Candie [place] 2019-07-16 2019-07-17 Outpatient MHMISCHER MHMISCHER [id number] 09:40:52 23:59:59 00 2019-07-11 2019-07-12 Outpatient nullFlavo MNA [id number] Memoria 17:00:00 05:59:59 r Neurology 00 l Candie Qureshi 2019-07-11 2019-07-11 Outpatient Jeremyll, MHMISCHER MHMISCHER [id number] 11:00:00 23:59:59 Wolfgang 00 [place] 2019-07-11 2019-07-11 Outpatient MHIE MHIE [id number] Memoria 11:00:00 11:00:00 00 [place] 2019-07-04 2019-07-04 Patient Doctor [facility] [id number] Univers 00:00:00 00:00:00 Secure Msg Unassigned, PRIMARY [id number] ity of [place] [facility] 4[place]2.7.2.686 [place] [facility] [id number] Nm dical [address] [place] 2019-07-04 2019-07-04 Patient Doctor WILLY [id number] 00:00:00 00:00:00 Secure Msg Unassigned, PRIMARY [id number] [place] [facility] [id number] P[facility]ILLION [id number] 2019-06-13 2019-06-13 Orders Doctor SAI [id number] Univers 00:00:00 00:00:00 Only Unassigned, ARI [id number] ity of [place] [facility] [id number] [place] as [id number] [address] 2019-06-13 2019-06-13 Orders Doctor SAI [id number] 00:00:00 00:00:00 Only UnassignedARI [id number] [place] [facility] [id number] [id number] [facility] 2019-02-21 2019-02-[address] [facility] [id number] Univers 08:12:00 16:29:[address] [facility] Results This patient has no known results.
[2022-03-29] MEDS ORDERED: ONDANSETRON 4 MG/2 ML VIAL ONE (11:35)
[2022-03-29] MEDS ORDERED: NA CHLORIDE 0.9% 500 ML ONE (11:35)
[2022-03-29 11:55] LABS: Absolute Lymphocytes (CBC) 1.5 K/uL (0.7-4.9); Hematocrit 47.5 % (36.0-45.0); Lymphocytes % 16.1 % (15.3-44.8); MCV 94.1 fL (80-100); MPV 8.5 fL (7.6-11.3); RBC Red Blood Cell Count 5.05 M/uL (3.86-4.86)
--- NOTE | 2022-03-29 12:09 | RAD REPORT ---
EXAM DESCRIPTION: CT - Abdomen Pelvis W Contrast - 03/29/2022 11:55 am CLINICAL HISTORY: Abdominal pain/vomiting COMPARISON: none. TECHNIQUE: Computed axial tomography of the abdomen pelvis was obtained. 100 cc Isovue-300 was admin istered intravenously. Oral contrast was not requested which limits evaluation of bowel and appendix All CT scans are performed using dose optimization technique as appropriate and may include automated exposure control or mA/KV adjustment according to patient size. FINDINGS: The liver, spleen, pancreas, adrenal and kidneys appear unremarkable. There is no evidence of diverticulitis. Fluid is present within nondilated large and small bowel. Spondylosis lumbar spine IMPRESSION: Fluid is present within nondilated large and small bowel. This may indicate an enteritis
[2022-03-29 12:20] LABS: Albumin 3.8 g/dL (3.4-5.0); Bilirubin Total 0.6 mg/dL (0.2-1.0); Protein, Total 7.9 g/dL (6.4-8.2)
[2022-03-29 12:22] LABS: Potassium 2.9 mmol/L (3.5-5.1)
[2022-03-29] MEDS ORDERED: POTASSIUM 25 MEQ EFFERV TAB ONE (12:29)
[2022-03-29 12:48] LABS: SARS-COV-2 RT PCR NEGATIVE (NEGATIVE)
--- NOTE | 2022-03-29 14:19 | EDPHYS ---
Physician Documentation [facility] Name: Nikole Whelan Age: 81 yrs Sex: Female : 1940 Arrival Date: 03/29/2022 Time: 10:22 Bed 5 Private MD: Feroz Srivastava B ED Physician Noble Serrano HPI: 03/29 11:32 This 81 yrs old Female presents to ER via Ambulatory with complaints of jmm Vomiting/Diarrhea. 11:32 The patient presents to the emergency department with nausea, vomiting, diarrhea, jmm abdominal pain. Onset: The symptoms/episode began/occurred gradually, 1 week(s) ago. Possible causes: unknown. The symptoms are aggravated by nothing. The symptoms are alleviated by nothing. Patient states she began taking antibiotics with no relief after developing vomiting and diarrhea. Denies fever. . Historical: - Allergies: 11:22 No Known Allergies; ld1 - PMHx: 11:22 Hypertensive disorder; ld1 - PSHx: 11:22 None; ld1 - Immunization history:: Adult Immunizations up to date, Client reports receiving the 2nd dose of the Covid vaccine. - Social history:: Smoking status: Patient denies any tobacco usage or history of. Patient/guardian denies using alcohol. ROS: 11:34 Constitutional: Negative for fever, chills, and weight loss, Cardiovascular: Negative jmm for chest pain, palpitations, and edema, Respiratory: Negative for shortness of breath, cough, wheezing, and pleuritic chest pain. 11:34 Abdomen/GI: Positive for abdominal pain, vomiting, diarrhea. 11:34 All other systems are negative. Exam: 11:34 Constitutional: This is a well developed, well nourished patient who is awake, alert, jmm and in no acute distress. Head/Face: atraumatic. Eyes: EOMI, no conjunctival erythema appreciated ENT: Moist Mucus Membranes Neck: Trachea midline, Supple Chest/axilla: Normal chest wall appearance and motion. Cardiovascular: Regular rate and rhythm. No edema appreciated Respiratory: Normal respirations, no respiratory distress appreciated Abdomen/GI: Non distended Back: Normal ROM Skin: General appearance color normal MS/ Extremity: Moves all extremities, no obvious deformities appreciated, no edema noted to the lower extremities Neuro: Awake and alert Psych: Behavior is normal, Mood is normal, Patient is cooperative and pleasant Vital Signs: 11:22 BP 116 / 56; Pulse 85; Resp 18; Temp 97.8(O); Pulse Ox 99% on R/A; Weight 68.04 kg; ld1 Height 5 ft. 9 in. (175.26 cm); Pain 0/10; 12:24 BP 138 / 83; Pulse 71; Resp 17; Pulse Ox 96% on R/A; tw2 13:00 BP 149 / 76; Pulse 63; Resp 17; Pulse Ox 98% on R/A; ph 14:17 BP 139 / 71; Pulse 77; Resp 17; Pulse Ox 96% on R/A; ph 15:05 BP 146 / 90; Pulse 72; Resp 18; Temp 98.0; Pulse Ox 99% on R/A; ph 11:22 Body Mass Index 22.15 (68.04 kg, 175.26 cm) ld1 MDM: 11:04 Patient medically screened. [facility] 13:53 Data reviewed: vital signs, nurses notes. Counseling: I had a detailed discussion with [facility] the patient and/or guardian regarding: the historical points, exam findings, and any diagnostic results supporting the discharge/admit diagnosis, lab results, radiology results, the need for outpatient follow up, to return to the emergency department if symptoms worsen or persist or if there are any questions or concerns that arise at home. ED course: Patient is alert and non toxic in appearance in the ED. No signs of resp distress.. 14:17 Data reviewed: vital signs. [facility] 03/29 11:01 Order name: CBC with Diff; Complete Time: 11:59 [facility] 03/29 11:01 Order name: CMP; Complete Time: 12:22 [facility] 03/29 11:01 Order name: Lipase; Complete Time: 12:22 [facility] 03/29 11:01 Order name: CT Abd/Pelvis - IV Contrast Only; Complete Time: 12:12 [facility] 03/29 11:33 Order name: COVID-19/FLU A+B (Document "Date of Onset" if Symptomatic); Complete Time: [facility] 12:51 03/29 12:15 Order name: CREATININE WHOLE BLOOD; Complete Time: 12:15 [facility] 03/29 11:01 Order name: IV Saline Lock; Complete Time: 11:42 [facility] 03/29 11:01 Order name: Labs collected and sent; Complete Time: 11:42 [facility] Administered Medications: 11:51 Drug: Zofran (Ondansetron) 4 mg Route: IVP; Site: right antecubital; ph 15:04 Follow up: Response: No adverse reaction; Nausea is decreased ph 11:51 Drug: NS 0.9% 500 ml Route: IV; Rate: bolus; Site: right antecubital; ph 15:04 Follow up: Response: No adverse reaction; IV Status: Completed infusion; IV Intake: ph 500ml 12:32 Drug: K-Lyte (potassium) Effervescent Tablet 50 mEq Route: PO; tw2 15:04 Follow up: Response: No adverse reaction ph Disposition: 16:16 Co-signature as Attending Physician, Noble Serrano MD. rn Disposition Summary: 03/29/22 14:18 Discharge Ordered Location: Home [facility] Condition: Stable [facility] Diagnosis - Vomiting jmm - Diarrhea, unspecified m Followup: [facility] - With: Private Physician - When: 2 - 3 days - Reason: Recheck today's complaints, Continuance of care, Re-evaluation by your physician Discharge Instructions: - Discharge Summary Sheet [facility] - Food Choices to Help Relieve Diarrhea, Adult jm - Diarrhea, Adult jm - Potassium Content of Foods jm - Vomiting, Adult [facility] Forms: - Medication Reconciliation Form [facility] - Thank You Letter [facility] - Antibiotic Education [facility] - Prescription Opioid Use [facility] Prescriptions: - dicyclomine 20 mg Oral tablet - take 1 tablet by ORAL route 3 times per day As needed; 20 tablet; Refills: 0, [facility] Product Selection Permitted - ondansetron 4 mg Oral tablet,disintegrating - take 1 tablet by ORAL route every 4-6 hours As needed; 20 tablet; Refills: 0, [facility] Product Selection Permitted Signatures: Dispatcher [employer] EDJeff Tyson PA PA [facility] Noble Serrano MD MD rn Hall, Patricia, RN RN [facility] RN tw2 Katie James RN RN ld1
--- NOTE | 2022-03-29 14:19 | ER ---
Nurse's Notes [facility] Name: Nikole Whelan Age: 81 yrs Sex: Female : 1940 Arrival Date: 03/29/2022 Time: 10:22 Bed 5 Private MD: Feroz Srivastava B Diagnosis: Vomiting;Diarrhea, unspecified Presentation: 03/29 11:24 Chief complaint: Patient states: N/V/D X 1 week. Coronavirus screen: At this time, the ld1 client does not indicate any symptoms associated with coronavirus-19. Ebola Screen: No symptoms or risks identified at this time. Initial Sepsis Screen: Does the patient meet any 2 criteria? No. Patient's initial sepsis screen is negative. Does the patient have a suspected source of infection? No. Patient's initial sepsis screen is negative. Risk Assessment: Do you want to hurt yourself or someone else? Patient reports no desire to harm self or others. Onset of symptoms was March 29, 2022 at 11:25. 11:24 Method Of Arrival: Ambulatory ld1 11:24 Acuity: LEO 3 ld1 Triage Assessment: :22 General: Appears in no apparent distress. comfortable, Behavior is calm, cooperative, ld1 appropriate for age. Pain: Denies pain. EENT: No signs and/or symptoms were reported regarding the EENT system. Neuro: Level of Consciousness is awake, alert, obeys commands, Oriented to person, place, time, situation, Appropriate for age. Cardiovascular: Capillary refill < 3 seconds Patient's skin is warm and dry. Respiratory: Airway is patent Respiratory effort is even, unlabored. GI: Reports diarrhea, nausea, vomiting. : No signs and/or symptoms were reported regarding the genitourinary system. Derm: No signs and/or symptoms reported regarding the dermatologic system. Musculoskeletal: No signs and/or symptoms reported regarding the musculoskeletal system. Historical: - Allergies: No Known Allergies; ld1 - PMHx: : Hypertensive disorder; ld1 - PSHx: : None; ld1 - Immunization history:: Adult Immunizations up to date, Client reports receiving the 2nd dose of the Covid vaccine. - Social history:: Smoking status: Patient denies any tobacco usage or history of. Patient/guardian denies using alcohol. Screenin:52 Abuse screen: Denies threats or abuse. Denies injuries from another. Nutritional ph screening: No deficits noted. Tuberculosis screening: No symptoms or risk factors identified. Fall Risk None identified. Assessment: 11:52 General: Appears in no apparent distress. comfortable, Behavior is calm, cooperative, ph appropriate for age, Denies fever, chills. Pain: Denies pain. Neuro: Level of Consciousness is awake, alert, obeys commands, Oriented to person, place, time, situation. Cardiovascular: Capillary refill < 3 seconds in bilateral fingers Patient's skin is warm and dry. Respiratory: Airway is patent Respiratory effort is even, unlabored. GI: Abdomen is non-distended, Reports diarrhea, nausea, vomiting, x approx 1 week Patient currently denies abdominal pain. : No signs and/or symptoms were reported regarding the genitourinary system. Derm: Skin is healthy with good turgor, Skin is pink, warm \\T\\ dry. Musculoskeletal: Circulation, motion, and sensation intact. Range of motion: intact in all extremities. 12:24 Reassessment: Patient appears in no apparent distress at this time. No changes from tw2 previously documented assessment. Patient and/or family updated on plan of care and expected duration. Pain level reassessed. Patient is alert, oriented x 3, equal unlabored respirations, skin warm/dry/pink. 13:20 Reassessment: Patient appears in no apparent distress at this time. No changes from ph previously documented assessment. Patient and/or family updated on plan of care and expected duration. Pain level reassessed. Patient is alert, oriented x 3, equal unlabored respirations, skin warm/dry/pink. 14:18 Reassessment: Patient appears in no apparent distress at this time. No changes from ph previously documented assessment. Patient and/or family updated on plan of care and expected duration. Pain level reassessed. Patient is alert, oriented x 3, equal unlabored respirations, skin warm/dry/pink. Vital Signs: 11:22 BP 116 / 56; Pulse 85; Resp 18; Temp 97.8(O); Pulse Ox 99% on R/A; Weight 68.04 kg; ld1 Height 5 ft. 9 in. (175.26 cm); Pain 0/10; 12:24 BP 138 / 83; Pulse 71; Resp 17; Pulse Ox 96% on R/A; tw2 13:00 BP 149 / 76; Pulse 63; Resp 17; Pulse Ox 98% on R/A; ph 14:17 BP 139 / 71; Pulse 77; Resp 17; Pulse Ox 96% on R/A; ph 15:05 BP 146 / 90; Pulse 72; Resp 18; Temp 98.0; Pulse Ox 99% on R/A; ph 11:22 Body Mass Index 22.15 (68.04 kg, 175.26 cm) ld1 ED Course: 10:22 Patient arrived in ED. mr 10:22 Feroz Srivastava MD is Private Physician. mr 10:52 Jeff Roy PA is PHCP. jmm 10:52 Noble Serrano MD is Attending Physician. jmm 11:22 Arm band placed on right wrist. ld1 11:25 Triage completed. ld1 11:29 Gwendolyn Clarke, RN is Primary Nurse. ph 11:42 COVID-19/FLU A+B (Document "Date of Onset" if Symptomatic) Sent. tw2 11:51 CBC with Diff Sent. ph 11:51 CMP Sent. ph 11:51 Lipase Sent. ph 11:51 Initial lab(s) drawn, by me, sent to lab. COVID swab sent to lab. Flu and/or RSV swab ph sent to lab. Inserted saline lock: 22 gauge in right antecubital area, using aseptic technique. Blood collected. 11:52 Patient has correct armband on for positive identification. Placed in gown. Bed in low ph position. Call light in reach. Side rails up X 1. Pulse ox on. NIBP on. Door closed. Noise minimized. Warm blanket given. 11:57 CT Abd/Pelvis - IV Contrast Only In Process Unspecified. EDMS 15:05 No provider procedures requiring assistance completed. IV discontinued, intact, ph bleeding controlled, No redness/swelling at site. Pressure dressing applied. Administered Medications: 11:51 Drug: Zofran (Ondansetron) 4 mg Route: IVP; Site: right antecubital; ph 15:04 Follow up: Response: No adverse reaction; Nausea is decreased ph 11:51 Drug: NS 0.9% 500 ml Route: IV; Rate: bolus; Site: right antecubital; ph 15:04 Follow up: Response: No adverse reaction; IV Status: Completed infusion; IV Intake: ph 500ml 12:32 Drug: K-Lyte (potassium) Effervescent Tablet 50 mEq Route: PO; tw2 15:04 Follow up: Response: No adverse reaction ph Medication: 11:52 VIS not applicable for this client. ph Intake: 15:04 IV: 500ml; Total: 500ml. ph Outcome: 14:18 Discharge ordered by MD. [email or web address] 15:05 Discharged to home via wheelchair. ph 15:05 Condition: good 15:05 Discharge instructions given to patient, Instructed on discharge instructions, follow up and referral plans. medication usage, Demonstrated understanding of instructions, follow-up care, medications, Prescriptions given X 2. 15:05 Patient left the ED. ph Signatures: Dispatcher [employer] EDMS Jeff Roy PA PA jmm Rivera, Mary mr Hall, Patricia, RN RN ph Destinee Goetz RN RN tw2 Katie James RN RN ld1
[2022-03-29 16:51] VITALS: BP 146/90; TEMP 98; O2SAT 99
== END 2022-03-29 15:05 | disposition home or self-care (01) ==
LOC: ER 10:19
DX: R11.10 Vomiting, unspecified (principal); R19.7 Diarrhea, unspecified; Z20.822 Contact with and (suspected) exposure to COVID-19; I10 Essential (primary) hypertension
CPT/HCPCS: 96361; 85025; 36415; 82565; 83690; 80053; 0240U; 74177; 96374; 99284; Q9967; J7040; J2405

== ENCOUNTER 2022-07-07 13:32 | Emergency (ER) | payer BC, OTHER ==
--- OUTSIDE RECORDS SUMMARY | 2022-07-07 13:37 | XMS REPORT | Continuity of Care Document ---
:1940 Author Organization [facility] t Address [address] [place] [address] Care Team Providers Name Role Phone Dmitriy Srivastava Attending Clinician Unavailable [id number] Attending Clinician Unavailable Wolfgang Le Attending Clinician Isak Hernadez Anavella Attending Clinician Unava ilable Doctor Unassigned, [place] Attending Clinician Unavailable IMELDA KAMARA Attending Clinician Unavailable [id number] Admitting Clinician Unavailable Kingston Hernadez Anav Admitting Clinician Unavailable IMELDA KAMARA Admitting Clinician Unavailable Payers Payer Name Policy Type Policy Number Effective Date Expiration Date Carol Ann singletary Blue Cross 6 [id number] 2017 [facility]iri t Blue Shield of 00:00:00 - [facility] [id number] BCTI BCTI [id number] Problems Condition Condition Condition Status Onset Resolution [...] ally from Medical request Branch for surgery [id number] 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 Amnesia Amnesia Problem Active 2022-06-19 Me moria (finding) (finding) 15:28:02 l Active Titus Problem 06/19/2022 [facility] Confusiona Confusion Problem Active 2022-06-19 Memoria l state al state 15:28:02 l (disorder) (disorder) Raffaele rmann Active Problem 06/19/2022 [facility] Dementia Dementia Problem Active 2022-06-19 Memoria (disorder) (disorder) 15:28:02 l Active [place]itus Problem 06/19/2022 [facility] [place] Hyperlipid Problem Active 2022-06-19 M emoria emia Hyperlipid 15:28:02 l (disorder) emia Vasquez n (disorder) Active Problem 06/19/2022 [facility] Hypertensi Problem Active 2022-06-19 M emoria ve Hypertensi 15:28:02 l disorder, ve [place] systemic disorder, arterial systemic (disorder) arterial (disorder) Active Problem 06/19/2022 [facility] Hypothyroi Hypothyro Problem Active 2022-06-19 Memoria dism idism 15:28:02 l (disorder) (disorder) Raffaele rmann Active Problem 06/19/2022 [facility] Impaired Impaired Problem Active 2022-06-19 Memoria cognition cognition 15:28:02 l (finding) (finding) Herm darwin Active Problem 06/19/2022 [facility] Tremor Tremor Problem Active 2022-06-19 Corbin siomara (finding) (finding) 15:28:02 l Active [place] Problem 06/19/2022 [facility],Corbin rial [facility] [id number] Pain, [place] n [id number] joint, Spirit knee, - [facility] right [facility] Allergies, Adverse Reactions, Alerts Allergy Allergy Status Severity Reaction(s) Onset Inactive Treating Comm ents Source Name Type Date Date Clinician NO KNOWN Drug Active Univers ALLERGIE Class ity of S [facility] [place] [facility] Social History Social Habit Start Date Stop Date Quantity Comments Source History of Tobacco [facility] - Use [facility] Sex Assigned At Common [facility] haile - [facility] Social History 2019-07-11 2019-07-11 [facility] ermann 17:10:23 17:10:23 Cigarettes smoked 2019-02-22 2019-02-22 Univers ity of current (pack per 00:00:00 00:00:00 [facility] ) - Reported Branch Alcohol intake 2019-02-22 2019-02-22 University of 00:00:00 00:00:00 [facility] [place] [facility] Tobacco Comment 2019-02-21 2019-02-21 Quit 1975 Universit y of 00:00:00 00:00:00 [facility] [place] [facility] Alcohol Comment 2019-02-21 2019-02-21 infrequently Univers ity of 00:00:00 00:00:00 [facility] [place] [facility] Smoking Status Start Date Stop Date Source Tobacco smoking status 2022-06-16 18:00:06 2022-06-16 18:00:06 [facility] [place] Medications Ordered Filled Start Stop Current Ordering Indication Dosage Frequency Signature Comments Components Source Medication Medication Date Date Medication? Clinician (SIG) Name Name Namenda 5 Yes 5 mg = 1 Corbin siomara mg oral 2-01 tab, PO, l tablet 18:39: BID, # 60 Vasquez n 00 tab, 3 Refill(s), Pharmacy: [facility] [id number], 167.64, cm, 06/16/22 12:12:00 CORONARY CLINICAL SPECIALIST, Height, 66.534, kg, 06/16/22 12:12:00 CORONARY CLINICAL SPECIALIST, Weight olmesartan Yes TAKE 1 Memor ia 20 mg oral 2-01 TABLET BY l tablet 17:56: MOUTH [place] 00 EVERY EVENING Decara Yes TAKE 1 Memoria 25,000 intl 2-01 CAPSULE BY l units oral 17:56: MOUTH ONCE H ermann capsule 00 WEEKLY Folate Yes 1 tab, PO, Memor ia Forte oral 2-01 Daily, 0 l tablet 17:56: Refill(s) Vasquez n 00 Vitamin B12 Yes 0 Memori a 2-01 Refill(s) l 17:55: [place] 00 donepezil 5 Yes = 1 tab, Me moria mg oral 6-10 PO, l tablet 21:20: Bedtime, # Felicia nn 00 30 tab, 6 Refill(s), Pharmacy: [facility] [id number], 167.64, cm, 08/25/21 14:43:00 CDT, Height, 76.818, kg, 08/25/21 14:43:00 CDT, Weight donepezil 5 Yes 5 mg = 1 Me moria mg oral 2-10 tab, PO, l tablet 19:51: Bedtime, # Felicia nn 00 30 tab, 3 Refill(s), Pharmacy: [facility] [id number], 170.18, cm, 06/25/21 13:37:00 CORONARY CLINICAL SPECIALIST, Height, 77.727, kg, 06/25/21 13:37:00 CORONARY CLINICAL SPECIALIST, Weight donepezil 5 Yes 5 mg = 1 Me moria mg oral 2-10 tab, PO, l tablet 19:51: Bedtime, # Felicia nn 00 30 tab, 3 Refill(s), Pharmacy: [facility] [id number], 170.18, cm, 06/25/21 13:37:00 CORONARY CLINICAL SPECIALIST, Height, 77.727, kg, 06/25/21 13:37:00 CORONARY CLINICAL SPECIALIST, Weight Voltaren Yes 50 mg = 1 Corbin siomara 2-10 tab, PO, l 19:37: TID, PRN [place] 00 pain, # 30 tab, 0 Refill(s) Voltaren Yes 50 mg = 1 Corbin siomara 2-10 tab, PO, l 19:37: TID, PRN [place] 00 pain, # 30 tab, 0 Refill(s) Aspirin 81 2020-0 Yes 81 mg = 1 Me moria MG Enteric 2-26 tab, PO, l Coated 17:44: Daily, # [place] Tablet 00 90 tab, 3 Refill(s), other Aspirin 81 2020-0 Yes 81 mg = 1 Me moria MG Enteric 2-26 tab, PO, l Coated 17:44: Daily, # [place] Tablet 00 90 tab, 3 Refill(s), other Lisinopril 2020-0 Yes PO, Daily, M emoria 2-26 0 l 16:53: Refill(s) [place] 00 Myrbetriq 2020-0 No PO, Daily, Me moria 2-26 0 l 16:53: Refill(s) [place] 00 24 HR 2020-0 Yes 50 mg = 1 Memoria mirabegron 2-26 tab, PO, l 50 MG 16:53: Daily, # [place] Extended 00 30 tab, 0 Release Refill(s) Tablet [Myrbetriq] Levothroid 2020-0 Yes 75 Memoria 75 mcg 2-26 microgram l (0.075 mg) 16:53: = 1 tab, Her king oral tablet 00 PO, Daily, # 30 tab, 0 Refill(s) amLODIPine 2020-0 Yes 5 mg = 1 Mem oria 5 mg oral 2-26 tab, PO, l tablet 16:53: Daily, # [place] 00 30 tab, 0 Refill(s) Levothroid 2020-0 Yes 75 Memoria 75 mcg 2-26 microgram l (0.075 mg) 16:53: = 1 tab, Her king oral tablet 00 PO, Daily, # 30 tab, 0 Refill(s) Lisinopril 2020-0 Yes PO, Daily, M emoria 2-26 0 l 16:53: Refill(s) [place] amLODIPine 2020-0 Yes 5 mg = 1 Mem oria 5 mg oral 2-26 tab, PO, l tablet 16:53: Daily, # [place] 00 30 tab, 0 Refill(s) Myrbetriq 2020-0 No PO, Daily, Me moria 2-26 0 l 16:53: Refill(s) [place] 00 24 HR 2020-0 Yes 50 mg = 1 Memoria mirabegron 2-26 tab, PO, l 50 MG 16:53: Daily, # [place] Extended 00 30 tab, 0 Release Refill(s) Tablet [Myrbetriq] Levothroid 20200 Yes 75 Memoria 75 mcg 2-26 microgram l (0.075 mg) 16:53: = 1 tab, Her king oral tablet 00 PO, Daily, # 30 tab, 0 Refill(s) No known No [facility] No [facility] medications [facility] No known No Univers medications [facility] Donepezil Donepezil No Donepezil HCl HCl HCl [place] Lovastatin Lovastatin No Lovastatin Levoxyl Levoxyl No Levoxyl amLODIPine amLODIPine No amLODIPine Besylate Besylate Besylate Olmesartan Olmesartan No Olmesartan Medoxomil Medoxomil Medoxomil Donepezil Donepezil No Donepezil HCl HCl HCl [place] No [place] Lovastatin Lovastatin No Lovastatin Levoxyl Levoxyl No Levoxyl amLODIPine amLODIPine No amLODIPine Besylate Besylate Besylate Olmesartan Olmesartan No Olmesartan [place]ox[place] Medoxomil Medoxomil Vital Signs Vital Name Observation Time Observation Value Comments Source height 2021-12-25 08:30:00 68 [in_i] [facility] weight 2021-12-25 08:30:00 177 [lb_av] [facility] bmi 2021-12-25 08:30:00 26.91 kg/m2 [facility] blood pressure 2021-12-25 08:30:00 130 mm[Hg] [facility] - systolic [facility] blood pressure 2021-12-25 08:30:00 70 mm[Hg] [facility] - diastolic [facility] Systolic (mm Hg) 2022-06-16 17:59:00 Corbin Qureshi Diastolic (mm Hg) 2022-06-16 17:59:00 Mem hamzah Qureshi Heart Rate 2022-06-16 17:59:00 [facility] Height 2022-06-16 17:59:00 5 [ft_i] [facility] Weight 2022-06-16 17:59:00 [facility] BMI Calculated 2022-06-16 17:59:00 Memori al [place] Systolic (mm Hg) 2021-08-25 19:43:00 Corbin rial [place] Diastolic (mm Hg) 2021-08-25 19:43:00 Mem orial [place] Heart Rate 2021-08-25 19:43:00 [facility] [place] Respitory Rate 2021-08-25 19:43:00 Memori al [place] Height 2021-08-25 19:43:00 167.64 cm [facility] [place] Weight 2021-08-25 19:43:00 [facility] [place] BMI Calculated 2021-08-25 19:43:00 Memori al [place] Systolic (mm Hg) 2021-06-25 19:25:00 Corbin rial [place] Diastolic (mm Hg) 2021-06-25 19:25:00 Mem orial [place] Heart Rate 2021-06-25 19:25:00 [facility] [place] Height 2021-06-25 19:25:00 170.18 cm [facility] [place] Weight 2021-06-25 19:25:00 [facility] [place] BMI Calculated 2021-06-25 19:25:00 Memori al [place] Systolic (mm Hg) 2019-07-11 16:49:00 Corbin rial [place] Diastolic (mm Hg) 2019-07-11 16:49:00 Mem orial [place] Heart Rate 2019-07-11 16:49:00 [facility] [place] Respitory Rate 2019-07-11 16:49:00 Memori al [place] Height 2019-07-11 16:49:00 170.18 cm [facility] [place] Weight 2019-07-11 16:49:00 [facility] [place] BMI Calculated 2019-07-11 16:49:00 Memori al [place] Procedures Procedure Date / Time Performing Clinician Source Performed REFERRAL- 2019-06-13 06:01:00 Doctor Unassigned, No [facility] REQUEST/RESPONSE Name Medical Branch Hip replacement [facility] [place] Encounters Start End Encounter Admission Attending Care Care Encounter Source Date/Time Date/Time Type Type Clinicians Facility Department ID 2021-12-29 Outpatient SHELBY Srivastava [facility] [id number] Common 12:14:01 Dmitriy [id number] Spirit [facility] 2021-12-25 Outpatient SHELBY Srivastava [facility] [id number] Common 08:23:01 Dmitriy [facility] 2021-11-25 Outpatient Atif [facility] [id number] Common 10:08:02 Dmitriy [facility] 2021-11-09 Outpatient 3 [id number] ENCPL REF [id number] [facility] 11:41:07 [facility] [place] 2021-11-04 Outpatient 3 [id number] ENCPL REF [id number] [facility] 09:15:31 0622 [facility] [place] 2021-11-04 Outpatient Atif [facility] [id number] Common 08:04:01 Dmitriy [facility] 2021-08-31 [facility] [id number] Common 13:30:03 [facility] 2021-08-13 [facility] [id number] Common 14:16:02 [facility] 2022-08-04 2022-08-04 Outpatient MHIE MHIE [id number] Memoria 14:15:00 14:15:00 07 ozzie [place] 2022-07-08 2022-07-08 Outpatient MHIE MHIE [id number] Memoria 13:00:00 13:00:00 08 ozzie [place] 2022-06-16 2022-06-17 Outpatient MHIE MNA [id number] Memoria 17:45:00 05:59:59 Neurology 06 ozzie Qureshi 2022-06-16 2022-06-16 Outpatient BRODY LeMISCHER [id number] 11:45:00 23:59:59 Wolfgang 06 Baron 2022-06-16 2022-06-16 Outpatient MHIE MHIE [id number] Memoria 11:45:00 11:45:00 06 ozzie [place] 2022-01-20 2022-01-20 [facility] [id number] Co mmon 00:00:00 00:00:00 [facility] 2021-12-31 2021-12-31 Ambulatory nullFlavo MNA [id number] Memoria 19:45:00 19:45:00 Pre-Reg r Neurology 05 l Candie Qureshi 2021-12-31 2021-12-31 Ambulatory nullFlavo MNA [id number] Memoria 19:45:00 19:45:00 Pre-Reg r Neurology 05 l Candie Qureshi 2021-12-31 2021-12-31 Outpatient MHIE MHIE [id number] Memoria 14:45:00 14:45:00 05 ozzie Qureshi 2021-12-31 2021-12-31 Outpatient BRODY Le [facility] [id number] 14:45:00 14:45:00 Wolfgang 05 Baron 2021-12-25 2021-12-25 NON-BILLAB STLMLC STLMLC [id number] Common 00:00:00 00:00:00 LE VISIT [facility] 2021-11-11 2021-11-25 Inpatient 3 [facility] ENCPL ORJ [id number] Encompa 20:05:00 13:30:00 heruy, 0629 [facility] 2021-08-25 2021-08-26 Outpatient nullFlavo MNA [id number] Memoria 19:45:00 04:59:59 r Neurology 04 ozzie Qureshi 2021-08-25 2021-08-26 Outpatient nullFlavo MNA [id number] Memoria 19:45:00 04:59:59 r Neurology 04 ozzie Qureshi 2021-08-25 2021-08-25 Outpatient [facility] [id number] 14:45:00 23:59:59 Wolfgang Ryley Draper 2021-08-25 2021-08-25 Outpatient MHIE MHIE [id number] Memoria 14:45:00 14:45:00 04 ozzie Qureshi 2021-06-25 2021-06-26 Outpatient nullFlavo MNA [id number] Memoria 19:15:00 05:59:59 r Neurology 03 ozzie Qureshi 2021-06-25 2021-06-26 Outpatient nullFlavo MNA [id number] Memoria 19:15:00 05:59:59 r Neurology 03 l Candie Qureshi 2021-06-25 2021-06-25 Outpatient Rey [facility] MISCHER [id number] 13:15:00 23:59:59 Wolfgang 03 [place] 2021-06-25 2021-06-25 Outpatient MHIE MHIE [id number] Memoria 13:15:00 13:15:00 03 ozzie [place] 2019-08-08 2019-08-08 Ambulatory nullFlavo MNA [id number] Memoria 18:00:00 18:00:00 Pre-Reg r Neurology 01 l Candie [place] 2019-08-08 2019-08-08 Ambulatory nullFlavo MNA [id number] Memoria 18:00:00 18:00:00 Pre-Reg r Neurology 01 l [place] 2019-08-08 2019-08-08 Outpatient MHIE MHIE [id number] Memoria 13:00:00 13:00:00 01 ozzie [place] 2019-08-08 2019-08-08 Outpatient Rey [facility] [id number] 13:00:00 13:00:00 Wolfgang 01 Baron 2019-08-03 2019-08-03 Ambulatory nullFlavo MNA [id number] Memoria 20:30:00 20:30:00 Pre-Reg r Neurology 02 l [place] 2019-08-03 2019-08-03 Ambulatory nullFlavo MNA [id number] Memoria 20:30:00 20:30:00 Pre-Reg r Neurology 02 l [place] 2019-08-03 2019-08-03 Outpatient MHIE MHIE [id number] Memoria 15:30:00 15:30:00 02 ozzie [place] 2019-08-03 2019-08-03 Outpatient Rey [facility] [id number] 15:30:00 15:30:00 Wolfgang 02 Baron 2019-07-26 2019-07-26 Patient Doctor SAI [id number] Univers 00:00:00 00:00:00 Secure Msg Unassigned, ARI [id number] ity of [place] [facility] [id number] [place] as [phone] [address] 2019-07-26 2019-07-26 Patient Doctor SAI [id number] 00:00:00 00:00:00 Secure Msg Unassigned, ARI 350.1.13.10 [place] [facility] [id number] 2019-07-16 2019-07-18 Outside nullFlavo MNA [id number] Memoria 15:40:52 05:59:59 Medical r Neurology 00 l Records [facility] 2019-07-16 2019-07-18 Outside nullFlavo MNA [id number] Memoria 15:40:52 05:59:59 Medical r Neurology 00 l Records [facility] 2019-07-16 2019-07-17 Outpatient MHMISCHER MHMISCHER [id number] 09:40:52 23:59:59 00 2019-07-11 2019-07-12 Outpatient nullFlavo MNA [id number] Memoria 17:00:00 05:59:59 r Neurology 00 l [facility] 2019-07-11 2019-07-12 Outpatient nullFlavo MNA [id number] Memoria 17:00:00 05:59:59 r Neurology 00 l [facility] 2019-07-11 2019-07-11 Outpatient Rey MHMISCHER MHMISCHER [id number] 11:00:00 23:59:59 Wolfgang 00 [place] 2019-07-11 2019-07-11 Outpatient MHIE MHIE [id number] Memoria 11:00:00 11:00:00 00 l [place] 2019-07-04 2019-07-04 Patient Doctor WILLY [id number] Univers 00:00:00 00:00:00 Secure Msg Unassigned, PRIMARY [id number] ity of [place] CARE [id number] [place] BRIANDA [id number] Nv dical 044 Branch 2019-07-04 2019-07-04 Patient Doctor WILLY [id number] 00:00:00 00:00:00 Secure Msg Unassigned, PRIMARY 350.1.13.10 [place] CARE [id number] PAVILLION [id number] 2019-06-13 2019-06-13 Orders Doctor SAI [id number] Univers 00:00:00 00:00:00 Only Unassigned, ARI 350.1.13.10 ity of [place] [facility] [id number] [place] as [phone] [address] 2019-06-13 2019-06-13 Orders Doctor SAI [id number] 00:00:00 00:00:00 Only Unassigned, ARI 350.1.13.10 [place] [facility] [id number] [id number] [facility] 2019-02-21 2019-02-22 Outpatient R [facility] M[facility] [id number] Univers 08:12:00 16:29:00 IMELDA martinez of [facility] [place] [facility] Results This patient has no known results.
[2022-07-07] MEDS ORDERED: MUPIROCIN 2% OINT 22GM TUBE TOP ONE ×2 (15:48→16:17)
--- NOTE | 2022-07-07 16:02 | ER ---
Nurse's Notes [facility] Name: Nikole Whelan Age: 82 yrs Sex: Female : 1940 Arrival Date: 07/07/2022 Time: 13:33 Bed 12 Private MD: Feroz Srivastava B Diagnosis: Laceration without foreign body of unspecified part of head-RIGHT EYELID;Scratched by cat Presentation: 07/07 14:02 Chief complaint: Patient states: i was trying to get my cat in the house so i could jh5 take him to the vet and he scratched me in the face, in the eye. I can see just fine but the scratch hurts. Coronavirus screen: Vaccine status: Patient reports receiving the 2nd dose of the covid vaccine. Client denies travel out of the [place] in the last 14 days. Ebola Screen: Patient negative for fever greater than or equal to 101.5 degrees Fahrenheit, and additional compatible Ebola Virus Disease symptoms Patient denies exposure to infectious person. Patient denies travel to an Ebola-affected area in the 21 days before illness onset. The patient denies any loss of vision. Initial Sepsis Screen: Does the patient meet any 2 criteria? No. Patient's initial sepsis screen is negative. Does the patient have a suspected source of infection? No. Patient's initial sepsis screen is negative. Risk Assessment: Do you want to hurt yourself or someone else? Patient reports no desire to harm self or others. 14:02 Method Of Arrival: Wheelchair 5 14:02 Acuity: LEO 4 jh5 16:25 Mechanism of Injury: scratch by cat. Onset of symptoms was July 07, 2022. ap3 Triage Assessment: 14:04 General: Appears in no apparent distress. slender, well groomed, well developed, jh5 Behavior is calm, cooperative, appropriate for age. Pain: Complains of pain in right side cheek, right eye lid. EENT: Reports pain. Historical: - Allergies: 14:04 No Known Allergies; jh5 - PMHx: 14:04 Hypertensive disorder; Hypercholesterolemia; jh5 - PSHx: 14:04 left knee; right hip; jh5 - Immunization history:: Adult Immunizations up to date. - Social history:: Smoking status: Patient/guardian denies using tobacco, the patient reports quitting approximately 1974 years ago. - Family history:: not pertinent. Screenin:24 [facility] ED Fall Risk Assessment (Adult) History of falling in the last 3 months, ap3 including since admission No falls in past 3 months (0 pts). Abuse screen: Denies threats or abuse. Nutritional screening: No deficits noted. Tuberculosis screening: No symptoms or risk factors identified. Assessment: 16:24 EENT: Eyes small laceration noted to right eye. Sclera/Cornea are clear in right eye. ap3 Vital Signs: 14:02 BP 139 / 85; Pulse 77; Resp 16; Temp 97.3; Pulse Ox 99% ; Weight 66.22 kg; Height 5 ft. 5 9 in. (175.26 cm); Pain 4/10; 14:02 Body Mass Index 21.56 (66.22 kg, 175.26 cm) 5 ED Course: 13:33 Patient arrived in ED. am2 13:34 Feroz Srivastava MD is Private Physician. am2 14:04 Triage completed. [facility] 14:04 Arm band placed on left wrist. [facility] 14:13 Leonel Melgar MD is Attending Physician. zach 16:00 Feroz Srivastava MD is Referral Physician. [facility] 16:00 Benny Tucker MD is Referral Physician. [facility] 16:10 Shirley Zazueta RN is Primary Nurse. ap3 16:24 No provider procedures requiring assistance completed. Patient did not have IV access ap3 during this emergency room visit. 16:25 Patient has correct armband on for positive identification. Adult w/ patient. 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 Exp: ap3 11/27/2022. Lot #: [id number]. } Route: IM; Site: right deltoid; 16:26 Follow up: Response: No adverse reaction ap3 Medication: 16:25 Vaccine Information Statement (VIS) provided today. Questions and/or concerns ap3 addressed. VIS edition date: December 2020. Outcome: 16:01 Discharge ordered by MD. serrano 16:25 Discharged to home ambulatory, with walker ap3 16:25 Condition: good 16:25 Discharge instructions given to patient, Instructed on discharge instructions, follow up and referral plans. medication usage, Demonstrated understanding of instructions, follow-up care, medications, wound care. 16:26 Patient left the ED. ap3 Signatures: Leonel Melgar MD MD cha Moreno, Amanda am2 Prokisch, Amanda RN RN ap3 Bridgette Winter RN RN jh5
--- NOTE | 2022-07-07 16:02 | EDPHYS ---
Physician Documentation [facility] Name: Nikole Whelan Age: 82 yrs Sex: Female : 1940 Arrival Date: 07/07/2022 Time: 13:33 Bed 12 Private MD: Feroz Srivastava B ED Physician Leonel Melgar HPI: 07/07 15:53 This 82 yrs old Female presents to ER via Wheelchair with complaints of Eye zach Injury - cat scratch. 15:53 The patient is experiencing pain, SCRATCH CAT. zach Historical: - Allergies: 14:04 No Known Allergies; jh5 - PMHx: 14:04 Hypertensive disorder; Hypercholesterolemia; jh5 - PSHx: 14:04 left knee; right hip; jh5 - Immunization history:: Adult Immunizations up to date. - Social history:: Smoking status: Patient/guardian denies using tobacco, the patient reports quitting approximately 1974 years ago. - Family history:: not pertinent. ROS: 15:56 Constitutional: Negative for fever, chills, and weight loss, ENT: Negative for injury, zach pain, and discharge, Neck: Negative for injury, pain, and swelling, Cardiovascular: Negative for chest pain, palpitations, and edema, Respiratory: Negative for shortness of breath, cough, wheezing, and pleuritic chest pain, Abdomen/GI: Negative for abdominal pain, nausea, vomiting, diarrhea, and constipation, Back: Negative for injury and pain, : Negative for injury, bleeding, discharge, and swelling, MS/Extremity: Negative for injury and deformity, Neuro: Negative for headache, weakness, numbness, tingling, and seizure, Psych: Negative for depression, anxiety, suicide ideation, homicidal ideation, and hallucinations, Allergy/Immunology: Negative for hives, rash, and allergies, Endocrine: Negative for neck swelling, polydipsia, polyuria, polyphagia, and marked weight changes, Hematologic/Lymphatic: Negative for swollen nodes, abnormal bleeding, and unusual bruising. 15:56 Skin: Positive for avulsion, laceration(s), of the right eye. Exam: 15:56 Constitutional: This is a well developed, well nourished patient who is awake, alert, zach and in no acute distress. ENT: Nares patent. No nasal discharge, no septal abnormalities noted. Tympanic membranes are normal and external auditory canals are clear. Oropharynx with no redness, swelling, or masses, exudates, or evidence of obstruction, uvula midline. Mucous membranes moist. Neck: Trachea midline, no thyromegaly or masses palpated, and no cervical lymphadenopathy. Supple, full range of motion without nuchal rigidity, or vertebral point tenderness. No Meningismus. Chest/axilla: Normal chest wall appearance and motion. Nontender with no deformity. No lesions are appreciated. Cardiovascular: Regular rate and rhythm with a normal S1 and S2. No gallops, murmurs, or rubs. Normal PMI, no JVD. No pulse deficits. Respiratory: Lungs have equal breath sounds bilaterally, clear to auscultation and percussion. No rales, rhonchi or wheezes noted. No increased work of breathing, no retractions or nasal flaring. Abdomen/GI: Soft, non-tender, with normal bowel sounds. No distension or tympany. No guarding or rebound. No evidence of tenderness throughout. Back: No spinal tenderness. No costovertebral tenderness. Full range of motion. Skin: Warm, dry with normal turgor. Normal color with no rashes, no lesions, and no evidence of cellulitis. MS/ Extremity: Pulses equal, no cyanosis. Neurovascular intact. Full, normal range of motion. Neuro: Awake and alert, GCS 15, oriented to person, place, time, and situation. Cranial nerves II-XII grossly intact. Motor strength 5/5 in all extremities. Sensory grossly intact. Cerebellar exam normal. Normal gait. Psych: Awake, alert, with orientation to person, place and time. Behavior, mood, and affect are within normal limits. 15:56 Head/face: Noted is abrasion(s), a laceration(s), that is superficial, .25 cm(s), of the right eye, swelling. Vital Signs: 14:02 BP 139 / 85; Pulse 77; Resp 16; Temp 97.3; Pulse Ox 99% ; Weight 66.22 kg; Height 5 ft. jh5 9 in. (175.26 cm); Pain 4/10; 14:02 Body Mass Index 21.56 (66.22 kg, 175.26 cm) jh5 Laceration: 15:58 Wound Repair of .2cm ( 0.1in ) subcutaneous laceration to right eye. Skin/tissue flap zach noted.. Distal neuro/vascular/tendon intact. Anesthesia: NONE with 0 mls of NONE. Wound prep: Moderate cleansing by me. Skin closed with 0 1-0 OINTMENT using OINTMENT. Dressed with Neosporin. Patient tolerated well. MDM: 14:13 Patient medically screened. [facility] 15:57 Data reviewed: vital signs, nurses notes. Consideration of Admission/Observation zach Escalation of care including admission/observation considered. I considered the following discharge prescriptions or medication management in the emergency department Medications were administered in the Emergency Department. See MAR. Test considered but Not performed: Labs: NO CBC, NO COMP MET. Care significantly affected by the following chronic conditions: Hypertension, HIGH CHOLESTEROL. 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 Exp: ap3 11/27/2022. Lot #: [id number]. } Route: IM; Site: right deltoid; 16:26 Follow up: Response: No adverse reaction ap3 Disposition Summary: 07/07/22 16:01 Discharge Ordered Location: Home zach Problem: new zach Symptoms: have improved zach Condition: Stable zach Diagnosis - Laceration without foreign body of unspecified part of head - RIGHT EYELID zach - Scratched by cat zach Followup: zach - With: Feroz Srivastava MD - When: 2 - 3 days - Reason: Recheck today's complaints, Continuance of care, Re-evaluation by your physician Followup: zach - With: Benny Tucker MD - When: 2 - 3 days - Reason: Recheck today's complaints, Re-evaluation by your physician Discharge Instructions: - Discharge Summary Sheet zach - Laceration Care, Adult zach - Facial Laceration zach - Laceration Care, Adult, [id number] zach - Facial Laceration, [id number] zach Forms: - Medication Reconciliation Form zach - Thank You Letter zach - Antibiotic Education zach - Prescription Opioid Use zach Prescriptions: - Centany 2 % Topical ointment - apply 1 application by TOPICAL route 3 times per day; 15 gram; Refills: 0, zach Product Selection Permitted - Zithromax Z-Jackson 250 mg Oral Tablet - take 1 tablet by ORAL route as directed for 5 days Day 1 - take two (2) tablets zach one time. Day 2, 3, 4 , 5 take one (1) tablet once daily.; 6 tablet; Refills: 0, Product Selection Permitted Signatures: Leonel Melgar MD MD cha Prokisch, Amanda, RN RN ap3 Bridgette Winter RN RN jh5
[2022-07-07] MEDS ORDERED: AZITHROMYCIN 250 MG TAB ONE (16:17)
[2022-07-07] MEDS ORDERED: TDAP (DIPHTH,PERTUSS(ACELL),TET VAC) 0.5 ML VIAL IMVAC ONE (16:17)
[2022-07-07 17:02] VITALS: BP 139/85; TEMP 97.3; O2SAT 99
== END 2022-07-07 16:26 | disposition home or self-care (01) ==
LOC: ER 13:32
PROC: 0HQ1XZZ Repair Face Skin, External Approach (ICD-10-PCS; principal; 2022-07-07)
DX: S01.111A Laceration without foreign body of right eyelid and periocular area, initial encounter (principal); W55.03XA Scratched by cat, initial encounter; Z23 Encounter for immunization; E78.00 Pure hypercholesterolemia, unspecified; I10 Essential (primary) hypertension
CPT/HCPCS: 90471; 99283

== ENCOUNTER 2023-08-16 08:13 | Inpatient (IN) | payer BC ==
[2023-08-16] MEDS ORDERED: NA CHLORIDE 0.9% 2,000 ML ONE (08:26)
[2023-08-16 08:38] LABS: Absolute Basophils 0.1 K/uL (0-0.5); Absolute Lymphocytes (CBC) 1.1 K/uL (0.7-4.9); Absolute Monocytes 0.9 K/uL (0.1-1.3); Absolute Neutrophil 12.3 K/uL (1.8-8.0); Basophils % 0.4 % (0-1.3); Hematocrit 38.7 % (36.0-45.0); Hemoglobin 12.7 g/dL (12.0-15.0); Lymphocytes % 7.5 % (15.3-44.8); MCH 31.8 pg (27.0-35.0); MCHC 32.9 g/dL (32.0-36.0); MCV 96.8 fL (80-100); MPV 9.3 fL (7.6-11.3); Monocytes % 6.3 % (3.3-12.3); Neutrophils % 85.8 % (41.7-73.7); Platelets 260 thou/uL (152-406); Red Cell Distribution Width 13.4 % (12.1-15.2)
--- NOTE | 2023-08-16 08:49 | RAD REPORT ---
EXAM DESCRIPTION: RAD - Chest Single View - 08/16/2023 8:42 am CLINICAL HISTORY: fall COMPARISON: Chest Pa And Lat (2 Views) dated 08/16/2022; Chest Pa And Lat (2 Views) dated 11/04/2021; C hest Pa And Lat (2 Views) dated 06/08/2019; CHEST SINGLE VIEW dated 06/04/2014 FINDINGS: Lines: None. Lungs: No evidence of edema or pneumonia. Pleural: No significant pleural effusions or pneumothorax. Cardiac: The heart size is within normal limits. Mediastinum: Within normal limits. Bones: No acute fractures. Other: None IMPRESSION: No acute cardiopulmonary disease.
[2023-08-16 08:57] LABS: Albumin 2.8 g/dL (3.4-5.0); Albumin/Globulin Ratio 0.7 (1.1-1.8); Anion Gap 10.5 mEq/L (5.0-15.0); Bilirubin Direct 0.4 mg/dL (0-0.2); Bilirubin Indirect, Calculated 0.8 mg/dL (0.2-0.8); Bilirubin Total 1.2 mg/dL (0.2-1.0); Globulin 4.3 g/dL (2.3-3.5); Potassium 3.5 mEq/L (3.5-5.1); Protein, Total 7.1 g/dL (6.4-8.2); Troponin High Sensitivity 9.3 pg/mL (<58.9)
--- NOTE | 2023-08-16 09:46 | RAD REPORT ---
EXAM DESCRIPTION: CT - CTHCSPWOC - 08/16/2023 9:32 am CLINICAL HISTORY: Trauma, head and neck injury. fall COMPARISON: CT HEAD CSPINE MPR WO CONTRAST dated 06/03/2014 TECHNIQUE: Axial 5 mm thick images of the head were obtained. Axial 2 mm thick images of the cervical spine were obtained with sagittal and coronal reconstruction images generated and reviewed. All CT scans are performed using dose optimization technique as appropriate and may include automated exposure control or mA/KV adjustment according to patient size. FINDINGS: CT HEAD WITHOUT CONTRAST: No acute hemorrhage, hydrocephalus or extra-axial collection is identified.No areas of brain edema or midline shift. Moderate chronic small vessel ischemic changes. Cerebral atrophy. The paranasal sinuses and mastoids are clear.The calvarium is intact. CT CERVICAL SPINE WITHOUT CONTRAST: No fracture or subluxation.No prevertebral soft tissues swelling is identified. Multilevel degenerati ve changes are present in the spine. 2 millimeters retrolisthesis of C3 on C4. Varying degrees of dee dee ral foraminal narrowing noted. This is advanced at C3-4. Carotid artery calcifications. IMPRESSION: No acute intracranial or cervical spine findings.
--- NOTE | 2023-08-16 09:53 | RAD REPORT ---
EXAM DESCRIPTION: CTAbdomen Pelvis W Contrast - 08/16/2023 9:34 am CLINICAL HISTORY: fall COMPARISON: Abdomen Pelvis W Contrast dated 03/29/2022 TECHNIQUE: CT of the abdomen and pelvis was performed with IV contrast. All CT scans are performed using dose optimization technique as appropriate and may include automated exposure control or mA/KV adjustment according to patient size. FINDINGS: Lower chest: Coronary artery calcifications. Liver: No acute abnormality or suspicious lesions. Biliary: No biliary ductal dilatation. Stomach: No significant focal abnormality. Duodenum: No significant focal abnormality. Pancreas: No significant abnormality. Spleen: No significant abnormality. Adrenal: No suspicious lesions. Kidney/ureter: No hydronephrosis. No renal calculi. 18 mm right lower pole renal lesion with a slight ly more lobular and indeterminate appearance compared with 03/29/2022, previously measuring 15 millim eters. The Hounsfield units are also indeterminate on this postcontrast CT measuring 36. Retroperitoneum: No retroperitoneal adenopathy. Vascular: Atherosclerosis without aneurysm. Bowel: No bowel obstruction. No appendicitis.. Peritoneum: No ascites or free air. Bladder: Grossly unremarkable. Reproductive: No adnexal masses. Bones: Right hip arthroplasty. Multilevel degenerative changes are present in the spine. No acute fra ctures. Other: n/a IMPRESSION: No acute intra-abdominal or pelvic finding. No evidence of significant acute trauma is i dentified. Slowly enlarging complex cystic right lower pole renal mass could represent a neoplasm. Consider urol ogic referral.
[2023-08-16 09:56] LABS: Specific Gravity 1.028 (1.005-1.030); Sqamous Epithelial <5 /HPF (None Seen); Urine Bacteria <20 /HPF (<20); Urine Bilirubin NEGATIVE (Negative); Urine Blood Trace (Negative); Urine Clarity Extremely Turbid (Clear); Urine Color Yellow (Yellow); Urine Culture Reflex Order NOT NEEDED; Urine Glucose NEGATIVE (Negative); Urine Ketones 2+ (Negative); Urine Micro Reflex YN NO BILL MICROSCOPIC; Urine Mucus 3+ /HPF (None Seen); Urine Nitrite NEGATIVE (Negative); Urine Protein 1+ (Negative); Urine Urobilinogen Normal (Normal); Urine WBC <5 /HPF (<5); Urine pH 5.5 (5.0-7.0)
--- NOTE | 2023-08-16 10:02 | ER ---
Nurse's Notes [facility] Name: Nikole Whelan Age: 83 yrs Sex: Female : 1940 Arrival Date: 08/16/2023 Time: 08:13 Bed 5 Private MD: Diagnosis: Weakness;Dehydration Presentation: 08/15 08:36 Coronavirus screen: Vaccine status: Patient reports receiving the 2nd dose of the covid ph vaccine. Ebola Screen: No symptoms or risks identified at this time. Initial Sepsis Screen: Does the patient meet any 2 criteria? No. Patient's initial sepsis screen is negative. Does the patient have a suspected source of infection? No. Patient's initial sepsis screen is negative. Risk Assessment: Do you want to hurt yourself or someone else? Patient reports no desire to harm self or others. Onset of symptoms was August 16, 2023. 08:36 Acuity: LEO 2 ph 08:36 Method Of Arrival: EMS: [facility] 09:01 Chief complaint: EMS states: patient fell approx 3 days ago, finally was able to crawl ko1 to phone and call 911. Care prior to arrival: IV initiated. 18 GA, in the right antecubital area, Glucose check: 99. Mechanism of Injury: Fall from standing position. Trauma event details: Injury occurred in the [facility]. Trauma Activation: Not Applicable Physician: ED Physician; Name: ; Notified At: ; Arrived At: Physician: General Surgeon; Name: ; Notified At: ; Arrived At: Physician: Radiology; Name: ; Notified At: ; Arrived At: Physician: Respiratory; Name: ; Notified At: ; Arrived At: Physician: Lab; Name: ; Notified At: ; Arrived At: Historical: - Allergies: 08:37 No Known Drug Allergies; ph - PMHx: 08:37 Hypercholesterolemia; Hypertensive disorder; ph - PSHx: 08:37 left knee; Right hip; ph - Immunization history:: Adult Immunizations unknown. - Infectious Disease History:: Denies. - Immunization history: Last tetanus immunization: unknown. - Social history:: Smoking status: Patient denies any tobacco usage or history of. Screenin:58 [facility] ED Fall Risk Assessment (Adult) History of falling in the last 3 months, ko1 including since admission Yes- single mechanical fall (1 pt) Confusion or Disorientation No (0 pts) Intoxicated or Sedated No (0 pts) Impaired Gait No (0 pts) Mobility Assist Device Used No (0 pt) Altered Elimination No (0 pt) Score/Fall Risk Level 0 - 2 = Low Risk Oriented to surroundings, Maintained a safe environment, Educated pt \T\ family on fall prevention, incl call for assistance when getting out of bed, Assessed \T\ reinforced patient's understanding of fall precautions, Provided non-skid footwear, Hourly rounding (assess needs \T\ fall precautionary measures) done, Used ambulatory aids as needed (educated on \T\ assisted with), Used gait belt as appropriate. Abuse screen: Denies threats or abuse. Denies injuries from another. Nutritional screening: No deficits noted. Tuberculosis screening: No symptoms or risk factors identified. Primary Survey: 09:01 NO uncontrolled hemorrhage observed. A: The client is awake and alert. The airway is ko1 patent. The client is alert. Airway: patent, No supplemental oxygen in use on arrival. Oral cavity: clear, Trachea midline. Breathing/Chest: Spontaneous respiratory effort, equal unlabored respirations, breath sounds clear bilaterally, regular pattern, symmetrical chest rise and fall. Respiratory effort: spontaneous, unlabored, Breath sounds: clear, bilaterally. Respiratory pattern: regular, Chest inspection: symmetrical rise and fall of the chest. Circulation: No external hemorrhage present. Regular and strong central pulse, skin warm/dry/normal color. Disability Pupils are equal, round, reactive to light and accommodation. Client is alert. Exposure/Environment: All clothing and personal items were removed. There is no evidence of uncontrolled external bleeding. No obvious injuries are noted at this time. A warming method has been applied: A warm blanket has been provided to the patient. 12:00 Reassessment Alertness and Airway: Awake and alert. The airway is patent. Breathing: ko1 Spontaneous respiratory effort, equal unlabored respirations, breath sounds clear bilaterally, regular pattern with symmetrical chest rise and fall. Respiratory effort Spontaneous Unlabored Breath sounds Clear Respiratory pattern Regular Chest inspection Symmetrical Circulation: No external hemorrhage noted. Regular and strong central pulse, skin warm/dry/normal color. Disability: Pupils Pupils are equal, round, reactive to light and accomodation. Assessment: 08:59 General: Appears distressed, ill, Behavior is calm, cooperative, appropriate for age. ko1 Pain: Denies pain. Neuro: No deficits noted. Cardiovascular: No deficits noted. Respiratory: No deficits noted. GI: No deficits noted. : Reports urinary frequency. EENT: No deficits noted. Derm: Skin is intact, some discoloration to left hip/thigh, left elbow and slight bruising to coccyx. Musculoskeletal: Circulation, motion, and sensation intact. Range of motion: intact in all extremities. 11:50 Reassessment: Afsaneh called from 4th floor, stated that the nurse would not be ready ko for the patient in 30 minutes, will call again in 30 minutes to check nurse status. Vital Signs: 08:36 BP 153 / 73; Pulse 94; Resp 18; Pulse Ox 100% on R/A; ph 08:58 BP 154 / 75; Pulse 95; Resp 15; Pulse Ox 97% ; ko1 09:34 BP 148 / 86; Pulse 92; Resp 15; Pulse Ox 100% ; ko1 12:31 BP 154 / 76; Pulse 88; Resp 16; Pulse Ox 99% ; ko1 Gilbert Coma Score: 09:01 Eye Response: spontaneous(4). Motor Response: obeys commands(6). Verbal Response: ko1 oriented(5). Total: 15. Trauma Score (Adult): 09:01 Eye Response: spontaneous(1); Verbal Response: oriented(1); Motor Response: obeys ko1 commands(2); Systolic BP: > 89 mm Hg(4); Respiratory Rate: 10 to 29 per min(4); Gilbert Score: 15; Trauma Score: 12 ED Course: 08:18 Patient arrived in ED. ph 08:18 Gwendolyn Clarke RN is Primary Nurse. ph 08:21 Hermelindo Ruiz MD is Attending Physician. ec2 08:37 Triage completed. ph 08:37 Basic Metabolic Panel Sent. ko1 08:37 CBC with Diff Sent. ko1 08:37 Troponin HS Sent. ko1 08:38 CK Sent. ko1 08:38 LFT's Sent. ko1 08:38 Arm band placed on Patient placed in an exam room, on a stretcher, on electrician marine, ph on pulse oximetry. 08:39 Initial lab(s) drawn, by me, sent to lab. EKG done, by ED staff, reviewed by Hermelindo Ruiz MD. Maintain EMS IV. Dressing intact. Good blood return noted. Site clean \T\ dry. Gauge \T\ site: 18 RAC. 08:43 XRAY Chest (1 view) In Process Unspecified. EDMS 08:58 Patient has correct armband on for positive identification. Placed in gown. Bed in low ko1 position. Call light in reach. Side rails up X2. Client placed on continuous cardiac and pulse oximetry monitoring. NIBP monitoring applied. clin nurse on. Door closed. Noise minimized. Lights dimmed. Warm blanket given. Pillow given. 09:00 Warm blanket given. PO fluids given. ko1 09:01 Patient maintains SpO2 saturation greater than 95% on room air. ko1 09:27 UAM Sent. ko1 09:27 CBC Smear Scan Sent. ko1 09:31 Urine collected: clean catch specimen, tea colored. ko1 09:32 Fall risk band placed. Turned to left side. Assisted to bedside commode. Cleaned of ko1 incontinence. 09:34 CT Head C Spine In Process Unspecified. EDMS 09:36 CT Abd/Pelvis - IV Contrast Only In Process Unspecified. EDMS 10:00 Eriberto Lopez is Hospitalizing Provider. ec2 10:02 Omega Somers MD is Hospitalizing Provider. ec2 12:31 No provider procedures requiring assistance completed. Patient admitted, IV remains in ko1 place. 12:31 Provided Education on: na. ko1 12:34 Thermoregulation: warm blanket given to patient. ko1 Administered Medications: 08:37 Drug: NS 0.9% IV 2000 ml IV at 1 bolus Per protocol; 1000 mL bolus Route: IV; Rate: 1 ko1 bolus; Site: right antecubital; 09:27 Follow up: Response: No adverse reaction; IV Status: Completed infusion; IV Intake: ko1 2000ml Medication: 12:31 VIS not applicable for this client. ko1 Intake: 09:27 IV: 2000ml; Total: 2000ml. ko1 12:33 IV: 3000ml; Total: 5000ml. ko1 Output: 12:33 Urine: 500ml (Voided); Total: 500ml. ko1 Outcome: 10:01 Decision to Hospitalize by Provider. ec2 12:31 Admitted to Med/surg accompanied by tech, via stretcher, room 407, with chart, ko1 12:31 Condition: stable 12:31 Instructed on the need for admit, 12:33 Patient's length of stay in the Emergency Department was greater than 2 hours. admitted ko1 to floorPatient's length of stay extended due to 12:34 Patient left the ED. ko1 Signatures: Dispatcher [employer] Gwendolyn Rucker RN Nereyda Driscoll ph, RN RN ko1 Hermelindo Ruiz MD MD ec2
--- NOTE | 2023-08-16 10:02 | EDPHYS ---
Physician Documentation [facility] Name: Nikole Whelan Age: 83 yrs Sex: Female : 1940 Arrival Date: 08/16/2023 Time: 08:13 Bed 5 Private MD: ED Physician Hermelindo Ruiz HPI: 08/15 08:24 This 83 yrs old Female presents to ER via Unassigned with complaints of Fall ec2 Injury. 08:24 Patient arrives today for evaluation of a fall and concern for downtime of 3 days. ec2 Patient with recent fall and has been out for several days, unsure of LOC, patient complaining of some buttock pain. Has been down and has had issues with urinating herself. Patient reports no headache, denies any chest pain or difficulty breathing, denies abdominal pain. History of dementia. Historical: - Allergies: 08:37 No Known Drug Allergies; ph - PMHx: 08:37 Hypercholesterolemia; Hypertensive disorder; ph - PSHx: 08:37 left knee; Right hip; ph - Immunization history:: Adult Immunizations unknown. - Infectious Disease History:: Denies. - Immunization history: Last tetanus immunization: unknown. - Social history:: Smoking status: Patient denies any tobacco usage or history of. ROS: 08:24 Constitutional: as per hpi ec2 Exam: 08:24 Constitutional: GEN: No acute distress HEENT: -Head: no deformities -Eyes: EOMI CV: ec2 regular rate LUNGS: no respiratory distress ABD: non-tender, soft, nontender, no guarding, not rigid SKIN: Stage I pressure ulcers to the buttocks MSK: No C/T/L spine deformities RUE w/o bony deformity LUE w/o bony deformity RLE w/o bony deformity LLE w/o bony deformity NEURO: moves all extremities equally, GCS 15 (E4, V5, M6) Vital Signs: 08:36 BP 153 / 73; Pulse 94; Resp 18; Pulse Ox 100% on R/A; ph 08:58 BP 154 / 75; Pulse 95; Resp 15; Pulse Ox 97% ; ko1 09:34 BP 148 / 86; Pulse 92; Resp 15; Pulse Ox 100% ; ko1 12:31 BP 154 / 76; Pulse 88; Resp 16; Pulse Ox 99% ; ko1 Migdalia Coma Score: 09:01 Eye Response: spontaneous(4). Motor Response: obeys commands(6). Verbal Response: ko1 oriented(5). Total: 15. Trauma Score (Adult): 09:01 Eye Response: spontaneous(1); Verbal Response: oriented(1); Motor Response: obeys ko1 commands(2); Systolic BP: > 89 mm Hg(4); Respiratory Rate: 10 to 29 per min(4); Bonesteel Score: 15; Trauma Score: 12 MDM: 08:21 Patient medically screened. ec2 08:24 Data reviewed: vital signs. ED course: Patient arrives today for evaluation after a ec2 fall. Examination remarkable for pressure ulcer as noted on the behind. Will obtain lab work, CT imaging, urine studies, give the patient crystalloid. Evaluate for electrolyte disturbances, renal failure, rhabdomyolysis. 08:35 ED course: EKG independently reviewed and interpreted by me, shows atrial fibrillation, ec2 rate of 92, no acute ST segment elevations, nonconcerning intervals.. 09:10 ED course: Metabolic profile shows appropriate electrolytes and renal function. CK ec2 slightly elevated at 575. LFTs are generally unremarkable. Troponin within normal ranges. . 09:59 ED course: Urine with ketones present, CT scan of the head and C-spine without ec2 traumatic findings, CT abdomen pelvis shows no acute process, likely a renal mass that she can follow-up on a nonemergent basis. Given the patient's ketonuria, elevated CK, will admit for crystalloid administration. No infectious process identified. . 08/15 08:21 Order name: Basic Metabolic Panel; Complete Time: 09:09 ec2 08/15 08:21 Order name: CBC with Diff; Complete Time: 10:13 ec2 08/15 08:21 Order name: Troponin HS; Complete Time: 09:09 ec2 08/15 08:21 Order name: CK; Complete Time: 09:09 ec2 08/15 08:21 Order name: LFT's; Complete Time: 09:09 ec2 08/15 08:21 Order name: UAM; Complete Time: 09:56 ec2 08/15 09:27 Order name: CBC Smear Scan; Complete Time: 10:13 EDMS 08/15 08:21 Order name: XRAY Chest (1 view); Complete Time: 08:50 ec2 08/15 08:21 Order name: CT Head C Spine; Complete Time: 09:56 ec2 08/15 08:21 Order name: CT Abd/Pelvis - IV Contrast Only; Complete Time: 09:56 ec2 08/15 08:21 Order name: Cardiac monitoring; Complete Time: 08:22 ec2 08/15 08:21 Order name: EKG - Nurse/Tech; Complete Time: 08:37 ec2 08/15 08:21 Order name: IV Saline Lock; Complete Time: 08:22 ec2 08/15 08:21 Order name: Labs collected and sent; Complete Time: 08:37 ec2 08/15 08:21 Order name: O2 Per Protocol; Complete Time: 08:22 ec2 08/15 08:21 Order name: O2 Sat Monitoring; Complete Time: 08:22 ec2 Administered Medications: 08:37 Drug: NS 0.9% IV 2000 ml IV at 1 bolus Per protocol; 1000 mL bolus Route: IV; Rate: 1 ko1 bolus; Site: right antecubital; 09:27 Follow up: Response: No adverse reaction; IV Status: Completed infusion; IV Intake: ko1 2000ml Disposition Summary: 08/16/23 10:01 Hospitalization Ordered Notes: Hospitalization Status: Inpatient Admission ec2 Location: Telemetry/MedSurg (Inpatient) ec2 Condition: Stable ec2 Problem: new ec2 Symptoms: have improved ec2 Bed/Room Type: Standard ec2 Provider: Omega Somers(08/16/23 10:02) ec2 Room Assignment: [facility](08/16/23 11:30) bd Diagnosis - Weakness ec2 - Dehydration ec2 Forms: - Medication Reconciliation Form ec2 - SBAR form ec2 - Leadership Thank You Letter ec2 Signatures: Dispatcher [employer] EDNanci Gordon Patricia, RN RN ph Oliver, Kathy, RN RN [email or web address] Hermleindo Ruiz MD MD ec2 Corrections: (The following items were deleted from the chart) 08:22 08:22 BASIC METABOLIC PANEL+C.LAB.BRZ ordered. EDMS EDMS 08:22 08:22 CBC+H.LAB.BRZ ordered. EDMS EDMS 08:22 08:22 Troponin High Sensitivity+C.LAB.BRZ ordered. EDMS EDMS 08:22 08:22 CREATINE PHOSPHOKINASE+C.LAB.BRZ ordered. EDMS EDMS 08:22 08:22 HEPATIC FUNCTION+C.LAB.BRZ ordered. EDMS EDMS 08:22 08:22 Urinalysis W/Microscopic+U.LAB.BRZ ordered. EDMS EDMS 08:22 08:22 Chest Single View+RAD.RAD.BRZ ordered. EDMS EDMS 08:22 08:22 Head C Spine MPR Wo Con+CT.RAD.BRZ ordered. EDMS EDMS 08:22 08:22 Abdomen Pelvis W Con+CT.RAD.BRZ ordered. EDMS EDMS 09:38 08:24 ED course: Patient arrives today for evaluation after a fall. Examination ec2 remarkable for pressure ulcer as noted on the behind. Will obtain lab work, CT imaging, urine studies, give the patient crystalloid. Evaluate for electrolyte disturbances, renal failure, rhabdomyolysis, UTI.. ec2 10:02 10:01 Eriberto Lopez ec2 ec2 11:30 10:01 ec2 bd
[2023-08-16 10:10] LABS: Blood Morphology Comment NOT SEEN (NOT SEEN); Platelet Estimate ADEQ; White Blood Cell Scan OK (OK)
--- NOTE | 2023-08-16 10:26 | P.HP ---
Certification for Inpatient Patient admitted to: Observation Practitioner: I am a practitioner with admitting privileges, knowledge of patient current condition, hospital course, and medical plan of care. Services: Services provided to patient in accordance with Admission requirements found in Title 42 Section 412.3 of the Code of Federal Regulations Patient History Date of Service: 08/16/23 Reason for admission: Fall, History of Present Illness: 83-year-old with past medical history hypertension, hyperlipidemia, presents to the emergency room for fall. History of recent falls, unsure of LOC, patient patient complaining of buttocks pain reports incontinence, urinating on self, unsure downtime. History of dementia. No reported chest pain, shortness of breath, fever, nausea vomiting diarrhea. Plan to admit for fall, dehydration, rhabdomyolysis, vital signs BP 153 / 73; Pulse 94; Resp 18; Pulse Ox 100% on R/A; GCS 15, EKG : EKG , shows atrial fibrillation, rate of 92, no acute ST segment elevations, CT scan of the head and C-spine without traumatic findings, CT abdomen pelvis shows no acute process, likely a renal mass she can follow-up on a nonemergent basis. . Allergies No Known Drug Allergies Allergy (Verified 08/18/22 07:32) Unknown Home Medications: Acetaminophen [Tylenol Arthritis] 2 tab PO Q8HP PRN 11/04/21 Acetaminophen/Diphenhydramine [Tylenol Pm Exstr 500-25Mg Cplt] 1 each PO BEDTIME 11/04/21 Amlodipine Besylate 5 mg PO BEDTIME 11/04/21 Donepezil [Aricept*] 5 mg PO BEDTIME 11/04/21 Ginkgo/Choline Bitartrate [Brainstrong Memory Supp Caplet] 1 each PO DAILY 11/04/21 Levothyroxine Sodium [Levoxyl] 0.075 mg PO DAILY 11/04/21 Lovastatin [Altoprev] 20 mg PO BEDTIME 11/04/21 Olmesartan Medoxomil 20 mg PO BEDTIME 11/04/21 Hydrocodone 7.5/APAP 325 [Chester 7.5/325 mg*] 1 tab PO Q4H PRN #30 tab 11/11/21 Codeine/APAP [Tylenol W/Codeine #3 tab] 1 tab PO Q6HP PRN #1 tab 08/18/22 - Past Medical/Surgical History Diabetic: No -: HTN -: Hypothroid -: Hyperlipidemia -: Carpel Tunnel -: eye surgery (cannot remember) - Family History Mother Notes: Alzheimers, lived into 90's Father -: Heart disease - Social History Alcohol use: Yes CD- Drugs: No Caffeine use: Yes Review of Systems Per HPI Physical Examination - Physical Exam General: Alert, In no apparent distress, Oriented x2, Confused, Other (dementia) HEENT: Atraumatic, Normocephalic Neck: Supple, JVD not distended Respiratory: Clear to auscultation bilaterally, Normal air movement Cardiovascular: Normal pulses, Regular rate/rhythm Capillary refill: <2 Seconds Gastrointestinal: Normal bowel sounds, Soft and benign Musculoskeletal: No clubbing, No swelling, Other (sacral tenderness) Integumentary: No breakdown, No significant lesion Neurological: Normal speech Urinary: Other (Incontinent) - Studies Laboratory Data (last 24 hrs) 08/16/23 08/16/23 08:30 08:30 WBC 14.40 H Hgb 12.7 Hct 38.7 Plt Count 260 Sodium 147 H Potassium 3.5 BUN 46 H Creatinine 0.95 Glucose 103 Total Bilirubin 1.2 H AST 46 H ALT 28 Alkaline Phosphatase 80 Assessment and Plan - Plan Assessment plan Fall Dehydration Early rhabdomyolysis elevated CK Acute kidney injury unknown baseline IV fluids, trend CK presents to the emergency room for fall. History of recent falls, unsure of LOC, patient patient complaining of buttocks pain reports incontinence, urinating on self, reported being down several hours vital signs BP 153 / 73; Pulse 94; Resp 18; Pulse Ox 100% on R/A; GCS 15, EKG : EKG independently reviewed and interpreted by me, shows atrial fibrillation, rate of 92, no acute ST segment elevations, CT scan of the head and C-spine without traumatic findings, CT abdomen pelvis shows no acute process, likely a renal mass she can follow-up on a nonemergent basis. Sodium 140 BUN 46 creatinine 0.95 CK5 75 Dementia resume approp home meds Renal mass Will need to follow-up outpatient Acute cystitis Urinary incontinence Ceftriaxone Leukocytosis 14.40 UA Protein calorie malnutrition Dietitian consult with protein supplement History hypertension hyperlipidemia Resume appropriate home meds Full code DVT Diet Disposition: Discharge Plan: Home - Advance Directives Does patient have a Living Will: No Does patient have a Durable POA for Healthcare: No - Code Status/Comfort Care Code Status: Full Code Critical Care: No Time Spent Managing Pts Care (In Minutes): 55
[2023-08-16] MEDS ORDERED: ONDANSETRON 4 MG/2 ML VIAL IV PRN (11:59)
[2023-08-16] MEDS: NA CHLORIDE 0.9% 1,000 ML IV SCH (12:50)
[2023-08-16] MEDS: CEFTRIAXONE 1,000 MG in NA CHLORIDE 0.9% 50 ML IVPB SCH (12:50)
[2023-08-16 13:22] VITALS: BMI 35.7
[2023-08-17 04:07] LABS: Absolute Basophils 0.1 K/uL (0-0.5); Absolute Lymphocytes (CBC) 1.4 K/uL (0.7-4.9); Absolute Monocytes 0.7 K/uL (0.1-1.3); Absolute Neutrophil 6.7 K/uL (1.8-8.0); Basophils % 0.6 % (0-1.3); Eosinophils % 0.2 % (0-4.4); Hematocrit 32.9 % (36.0-45.0); MCH 32.6 pg (27.0-35.0); MCHC 33.6 g/dL (32.0-36.0); MCV 96.9 fL (80-100); MPV 9.2 fL (7.6-11.3); Monocytes % 7.5 % (3.3-12.3); Neutrophils % 75.7 % (41.7-73.7); Platelets 188 thou/uL (152-406); RBC Red Blood Cell Count 3.39 M/uL (3.86-4.86); Red Cell Distribution Width 13.3 % (12.1-15.2)
[2023-08-17 04:19] LABS: Magnesium 1.9 mg/dL (1.6-2.4)
[2023-08-17] MEDS: POTASSIUM CL SA 10 MEQ TAB PO ONE (06:27)
--- NOTE | 2023-08-17 13:20 | RAD REPORT ---
EXAM DESCRIPTION: RAD - Knee Right 3 View - 08/17/2023 12:59 pm CLINICAL HISTORY: pain COMPARISON: No comparisons TECHNIQUE: Right knee, 3 views. FINDINGS: No fracture, dislocation or periosteal reaction.Moderate joint effusion seen. Moderate deg enerative changes with medial more than lateral weight-bearing joint space loss. Mineralization along the medial meniscus. No other soft tissue abnormality. IMPRESSION: Moderate degenerative changes. 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 Moderate joint effusion.
--- NOTE | 2023-08-17 14:30 | P.PN ---
Subjective Date of Service: 08/17/23 Chief Complaint: Fall, Moderate generalized weakness, unable to work with physical therapy, - Physical Exam General: Alert, In no apparent distress, Oriented x2, Confused, Other (dementia) HEENT: Atraumatic, Normocephalic Neck: Supple, JVD not distended Respiratory: Clear to auscultation bilaterally, Normal air movement Cardiovascular: Normal pulses, Regular rate/rhythm Capillary refill: <2 Seconds Gastrointestinal: Normal bowel sounds, Soft and benign Musculoskeletal: No clubbing, No swelling, Other (sacral tenderness) Integumentary: No breakdown, No significant lesion Neurological: Normal speech Urinary: Other (Incontinent) <DelroyLeighann - Last Filed: 08/17/23 14:26> Date of Service: 08/17/23 <Omega Somers - Last Filed: 08/21/23 08:45> Review of Systems Per HPI <ColtalecLeighann - Last Filed: 08/17/23 14:26> Physical Examination - Vital Signs Temperature: 100 F Blood Pressure: 126/55 Pulse: 82 Respirations: 12 Pulse Ox (%): 95 <Leighann Potts - Last Filed: 08/17/23 14:26> Assessment And Plan - Plan Assessment plan Fall Dehydration improved Early rhabdomyolysis elevated CK improved Acute kidney injury unknown baseline IV fluids, trend CK presents to the emergency room for fall. History of recent falls, unsure of LOC, patient patient complaining of buttocks pain reports incontinence, urinating on self, reported being down several hours vital signs BP 153 / 73; Pulse 94; Resp 18; Pulse Ox 100% on R/A; GCS 15, EKG : EKG independently reviewed and interpreted by me, shows atrial fibrillation, rate of 92, no acute ST segment elevations, CT scan of the head and C-spine without traumatic findings, CT abdomen pelvis shows no acute process, likely a renal mass she can follow-up on a nonemergent basis. Sodium 140 BUN 46 creatinine 0.95 CK575, 467, 304, 180 improving Fall, ambulate with physical therapy today,, PT Dementia resume approp home meds Fall precautions, transition to skilled care Renal mass Will need to follow-up outpatient Acute cystitis Urinary incontinence Ceftriaxone Leukocytosis 14.40 UA Hypokalemia Trend potassium replace as needed 3.0, 3.3 Protein calorie malnutrition Dietitian consult with protein supplement History hypertension hyperlipidemia Resume appropriate home meds Full code DVT Diet Disposition: Transition from home to skilled care for falls, unable to care for self independently Discharge Plan: Senior Living - Code Status/Comfort Care Code Status: Full Code Critical Care: No Time Spent Managing PTS Care (In Minutes): 35 <Leighann Potts - Last Filed: 08/17/23 14:26> Date of Service: 08/17/23 Patient chart was reviewed and patient was seen and examined. Assessment and plan agreed upon. Most of the MDM was done by myself and plan of care was discussed with JOSS as well as the patient. <Omega Somers - Last Filed: 08/21/23 08:45>
[2023-08-17] MEDS: ACETAMINOPHEN 500 MG TAB PO PRN (21:43)
[2023-08-18 06:02] LABS: Absolute Lymphocytes (CBC) 1.2 K/uL (0.7-4.9); Absolute Monocytes 0.6 K/uL (0.1-1.3); Basophils % 0.6 % (0-1.3); Eosinophils % 0.5 % (0-4.4); Hematocrit 35.1 % (36.0-45.0); Hemoglobin 11.6 g/dL (12.0-15.0); Lymphocytes % 17.5 % (15.3-44.8); MCH 32.2 pg (27.0-35.0); MCV 97.4 fL (80-100); Monocytes % 9.1 % (3.3-12.3); Neutrophils % 72.3 % (41.7-73.7); Platelets 168 thou/uL (152-406); RBC Red Blood Cell Count 3.61 M/uL (3.86-4.86); Red Cell Distribution Width 13.2 % (12.1-15.2)
[2023-08-18 06:19] LABS: Anion Gap 7.4 mEq/L (5.0-15.0); Magnesium 1.9 mg/dL (1.6-2.4); Potassium 3.4 mEq/L (3.5-5.1)
--- NOTE | 2023-08-18 06:56 | P.PN ---
Subjective Date of Service: 08/19/23 Chief Complaint: Fall, Moderate generalized weakness, unable/refusing to work with physical therapy, Unable to complete standing transfers due to left lower extremity pain and weakness Pending transfer to senior care facility - Physical Exam General: Alert, In no apparent distress, Oriented x2, Confused, Other (dementia) HEENT: Atraumatic, Normocephalic Neck: Supple, JVD not distended Respiratory: Clear to auscultation bilaterally, Normal air movement Cardiovascular: Normal pulses, Regular rate/rhythm Capillary refill: <2 Seconds Gastrointestinal: Normal bowel sounds, Soft and benign Musculoskeletal: No clubbing, No swelling, Other (sacral tenderness) Integumentary: No breakdown, No significant lesion Neurological: Normal speech Urinary: Other (Incontinent) Review of Systems per HPI Physical Examination - Vital Signs Temperature: 96.8 F Blood Pressure: 139/67 Pulse: 74 Respirations: 18 Pulse Ox (%): 96 - Studies Laboratory Data (last 24 hrs) 08/17/23 11:41 Potassium 3.3 L Assessment And Plan - Plan Assessment plan Fall Dehydration improved Early rhabdomyolysis elevated CK improved Acute kidney injury unknown baseline IV fluids, trend CK presents to the emergency room for fall. History of recent falls, unsure of LOC, patient patient complaining of buttocks pain reports incontinence, urinating on self, reported being down several hours vital signs BP 153 / 73; Pulse 94; Resp 18; Pulse Ox 100% on R/A; GCS 15, EKG : EKG independently reviewed and interpreted by me, shows atrial fibrillation, rate of 92, no acute ST segment elevations, CT scan of the head and C-spine without traumatic findings, CT abdomen pelvis shows no acute process, likely a renal mass she can follow-up on a nonemergent basis. Sodium 140 BUN 46 creatinine 0.95 CK575, 467, 304, 180 improving Fall, ambulate with physical therapy today,, PT Pending senior care facility admission Dementia resume approp home meds Fall precautions, transition to skilled care Renal mass Will need to follow-up outpatient Acute cystitis Leukocytosis improved Urinary incontinence Ceftriaxone Leukocytosis 14.40 UA Hypokalemia Trend potassium replace as needed 3.0, 3.3, 3.4 Protein calorie malnutrition Dietitian consult with protein supplement History hypertension hyperlipidemia Resume appropriate home meds Full code DVT Diet Disposition: Transition from home to skilled care for falls, unable to care for self independently Discharge Plan: Jail - Code Status/Comfort Care Code Status: Full Code Critical Care: No Time Spent Managing PTS Care (In Minutes): 35
[2023-08-18] MEDS ORDERED: POTASSIUM CL SA 10 MEQ TAB PO ONE (09:00)
[2023-08-18] MEDS: POTASSIUM CL SA 10 MEQ TAB PO ONE (09:04)
[2023-08-18] MEDS: ENSURE HIGH PROTEIN 237 ML CAN PO SCH (22:05)
[2023-08-19 07:12] LABS: Anion Gap 7.6 mEq/L (5.0-15.0); Potassium 3.6 mEq/L (3.5-5.1)
[2023-08-19] MEDS: POTASSIUM CL SA 10 MEQ TAB PO ONE (08:11)
--- NOTE | 2023-08-19 08:19 | P.PN ---
Subjective Date of Service: 08/19/23 Chief Complaint: Fall, Moderate generalized weakness, unable/refusing to work with physical therapy, Unable to complete standing transfers due to left lower extremity pain and weakness - Physical Exam General: Alert, In no apparent distress, Oriented x2, Confused, Other (dementia) HEENT: Atraumatic, Normocephalic Neck: Supple, JVD not distended Respiratory: Clear to auscultation bilaterally, Normal air movement Cardiovascular: Normal pulses, Regular rate/rhythm Capillary refill: <2 Seconds Gastrointestinal: Normal bowel sounds, Soft and benign Musculoskeletal: No clubbing, No swelling, Other (sacral tenderness) Integumentary: No breakdown, No significant lesion Neurological: Normal speech Urinary: Other (Incontinent) Physical Examination - Vital Signs Temperature: 96.9 F Blood Pressure: 138/66 Pulse: 80 Respirations: 18 Pulse Ox (%): 94 Assessment And Plan - Plan Assessment plan Fall Dehydration improved Early rhabdomyolysis elevated CK improved Acute kidney injury unknown baseline IV fluids, trend CK presents to the emergency room for fall. History of recent falls, unsure of LOC, patient patient complaining of buttocks pain reports incontinence, urinating on self, reported being down several hours vital signs BP 153 / 73; Pulse 94; Resp 18; Pulse Ox 100% on R/A; GCS 15, EKG : EKG independently reviewed and interpreted by me, shows atrial fibrillation, rate of 92, no acute ST segment elevations, CT scan of the head and C-spine without traumatic findings, CT abdomen pelvis shows no acute process, likely a renal mass she can follow-up on a nonemergent basis. Sodium 140 BUN 46 creatinine 0.95 CK575, 467, 304, 180 improving Fall, ambulate with physical therapy today,, PT Pending longterm facility admission Dementia resume approp home meds Fall precautions, transition to skilled care Renal mass Will need to follow-up outpatient Acute cystitis Leukocytosis improved Urinary incontinence Ceftriaxone Leukocytosis 14.40 UA Hypokalemia Trend potassium replace as needed 3.0, 3.3, 3.4, 3.6 Protein calorie malnutrition Dietitian consult with protein supplement History hypertension hyperlipidemia Resume appropriate home meds Full code DVT Diet Disposition: Transition from home to skilled care for falls, unable to care for self independently Discharge Plan: Longterm - Code Status/Comfort Care Code Status: Full Code Critical Care: No Time Spent Managing PTS Care (In Minutes): 35
[2023-08-19 10:38] VITALS: O2SAT 93
[2023-08-19 16:08] VITALS: BP 138/66; TEMP 96.9
--- NOTE | 2023-08-21 08:44 | P.DS ---
Discharge Date: 08/19/23 Disposition: TRANSFER TO SNF - REHAB Discharge Condition: GOOD Reason for Admission: Fall, Brief History of Present Illness: 83-year-old with past medical history hypertension, hyperlipidemia, presents to the emergency room for fall. History of recent falls, unsure of LOC, patient patient complaining of buttocks pain reports incontinence, urinating on self, unsure downtime. History of dementia. No reported chest pain, shortness of breath, fever, nausea vomiting diarrhea. Plan to admit for fall, dehydration, rhabdomyolysis, vital signs BP 153 / 73; Pulse 94; Resp 18; Pulse Ox 100% on R/A; GCS 15, EKG : EKG , shows atrial fibrillation, rate of 92, no acute ST segment elevations, CT scan of the head and C-spine without traumatic findings, CT abdomen pelvis shows no acute process, likely a renal mass she can follow-up on a nonemergent basis. . Hospital Course: Patient has done well during hospitalization. Plan to discharge to [facility] facility placement. Vital Signs/Physical Exam: Temp Pulse Resp BP Pulse Ox 96.9 F 80 18 138/66 94 08/19/23 15:30 08/19/23 15:30 08/19/23 15:30 08/19/23 15:30 08/19/23 15:30 General: Alert, In no apparent distress, Oriented x3 Laboratory Data at Discharge: WBC 6.90 thou/uL (4.3-10.9) 08/18/23 05:42 Hgb 11.6 g/dL (12.0-15.0) L 08/18/23 05:42 Hct 35.1 % (36.0-45.0) L 08/18/23 05:42 Plt Count 168 thou/uL (152-406) 08/18/23 05:42 Sodium 141 mEq/L (136-145) 08/19/23 06:29 Potassium 3.6 mEq/L (3.5-5.1) 08/19/23 06:29 BUN 17 mg/dL (7-18) 08/19/23 06:29 Creatinine 0.71 mg/dL (0.55-1.02) 08/19/23 06:29 Glucose 110 mg/dL (74-106) H 08/19/23 06:29 Magnesium 1.9 mg/dL (1.6-2.4) 08/18/23 05:42 Total Bilirubin 1.2 mg/dL (0.2-1.0) H 08/16/23 08:30 AST 46 U/L (15-37) H 08/16/23 08:30 ALT 28 U/L (13-56) 08/16/23 08:30 Alkaline Phosphatase 80 U/L (45-117) 08/16/23 08:30 Home Medications: RX: Amlodipine Besylate 5 mg PO BEDTIME 11/04/21 RX: Donepezil [Aricept*] 5 mg PO BEDTIME 11/04/21 RX: Levothyroxine Sodium [Levoxyl] 0.075 mg PO DAILY 11/04/21 RX: Lovastatin [Altoprev] 20 mg PO BEDTIME 11/04/21 RX: Cholecalciferol (Vitamin D3) [Decara] 25,000 mcg PO Q7D 08/16/23 RX: Folic Acid 1,000 mg PO BID 08/16/23 RX: Mecobalamin [B12 Active] 1,000 mcg PO BID 08/16/23 RX: Memantine HCl [Namenda] 5 mg PO BID 08/16/23 RX: Ensure High Protein 237 ml PO BID #60 can 08/19/23 New Medications: RX: Ensure High Protein 237 ml PO BID #60 can Physician Discharge Instructions: Short term rehab/new admission: [address] [address] P:[phone]/ F:[phone] -DC IV and DC home -Follow-up with PCP in 1 to 2 weeks -Please call Dr. Somers at [phone] if any questions regarding hospital stay -Please call nursing station at [phone] if any nursing or medication questions -Return to the emergency room if symptoms worsen Diet: Regular Activity: Fall precautions Followup: NONE,NONE [Primary Care Provider] - 1-2 Weeks Time spent managing pt's care (in minutes): 35
== END 2023-08-19 13:40 | DRG 558 ==
LOC: ER 08:13 → ERHOLD 10:27 → 4TH 12:13 → OBSVTOIN 08-17 14:25
PROVIDERS: ADMIT Hospitalist; ATTEND Hospitalist
DX: M62.82 Rhabdomyolysis (principal); N17.9 Acute kidney failure, unspecified; E46 Unspecified protein-calorie malnutrition; N30.00 Acute cystitis without hematuria; E86.0 Dehydration; I10 Essential (primary) hypertension; I48.91 Unspecified atrial fibrillation; E78.00 Pure hypercholesterolemia, unspecified; E03.9 Hypothyroidism, unspecified; N28.9 Disorder of kidney and ureter, unspecified; F03.90 Unspecified dementia, unspecified severity, without behavioral disturbance, psychotic disturbance, mood disturbance, and anxiety; R32 Unspecified urinary incontinence; Z68.35 Body mass index [BMI] 35.0-35.9, adult; Z79.890 Hormone replacement therapy; Z79.899 Other long term (current) drug therapy
CPT/HCPCS: 36415; 70450; 71045; 72125; 74177; 80048; 80076; 81001; 82550; 83735; 84132; 84484; 85025; 96360; 97110; 97161; 97530; 99285; G0378; J0696; J7030; Q9967

== ENCOUNTER 2023-10-31 12:29 | Inpatient (IN) | payer BC ==
[2023-10-31] MEDS ORDERED: NA CHLORIDE 0.9% 1,000 ML ONE ×3 (12:54→18:02)
[2023-10-31] MEDS ORDERED: CEFTRIAXONE 1000 MG/VIAL ONE (12:54)
[2023-10-31 13:04] LABS: Absolute Lymphocytes (CBC) 0.5 K/uL (0.7-4.9); Absolute Monocytes 0.7 K/uL (0.1-1.3); Basophils % 0.1 % (0-1.3); Hematocrit 42.8 % (36.0-45.0); Hemoglobin 14.3 g/dL (12.0-15.0); Lymphocytes % 6.2 % (15.3-44.8); MCH 32.4 pg (27.0-35.0); MCHC 33.3 g/dL (32.0-36.0); MCV 97.3 fL (80-100); MPV 8.5 fL (7.6-11.3); Monocytes % 8.5 % (3.3-12.3); Neutrophils % 85.2 % (41.7-73.7); Platelets 191 thou/uL (152-406); Red Cell Distribution Width 15.6 % (12.1-15.2)
[2023-10-31 13:08] LABS: Specific Gravity 1.029 (1.005-1.030); Sqamous Epithelial <5 /HPF (None Seen); Urine Bacteria <20 /HPF (<20); Urine Bilirubin NEGATIVE (Negative); Urine Blood 3+ (OVER) (Negative); Urine Clarity Extremely Turbid (Clear); Urine Color Yellow (Yellow); Urine Culture Reflex Order NOT NEEDED; Urine Glucose NEGATIVE (Negative); Urine Ketones 2+ (Negative); Urine Microscopic Reflex YN ORDER UMIC; Urine Mucus Slight /HPF (None Seen); Urine Nitrite NEGATIVE (Negative); Urine Protein 2+ (Negative); Urine RBC <5 /HPF (None Seen); Urine Urobilinogen Normal (Normal); Urine WBC <5 /HPF (<5); Urine WBC Clump Rare /HPF (None Seen); Urine pH 5.5 (5.0-7.0)
[2023-10-31 13:09] LABS: PT Prothrombin Time 13.6 SECONDS (9.5-12.5); PTT, Activated Partial Thromb 38.4 SECONDS (24.3-36.9); Protime INR 1.24
[2023-10-31 13:36] LABS: Albumin 3.8 g/dL (3.4-5.0); Albumin/Globulin Ratio 0.9 (1.1-1.8); Anion Gap 13.3 mEq/L (5.0-15.0); Bilirubin Total 0.8 mg/dL (0.2-1.0); Globulin 4.1 g/dL (2.3-3.5); Potassium 3.3 mEq/L (3.5-5.1); Protein, Total 7.9 g/dL (6.4-8.2)
--- NOTE | 2023-10-31 13:45 | EDPHYS ---
Physician Documentation [facility] Name: Nikole Whelan Age: 83 yrs Sex: Female : 1940 Arrival Date: 10/31/2023 Time: 12:29 Bed 19 Private MD: ED Physician Hermelindo Ruiz HPI: 10/30 12:35 This 83 yrs old Female presents to ER via Unassigned with complaints of fall. ec2 12:35 Patient arrives today for evaluation after fall to the ground. States that she woke up ec2 on the ground. Had fallen sometime overnight, unclear downtime. Patient reports some pain in her left hip otherwise denies chest pain, abdominal pain, nausea or vomiting, denies any recent illnesses. History gathered from EMS.. Historical: - Allergies: 12:39 No Known Allergies; mb9 - Home Meds: 12:39 amlodipine oral [Active]; Lovastatin Oral [Active]; olmesartan oral [Active]; mb9 - PMHx: 12:39 Hypercholesterolemia; Hypertensive disorder; mb9 - PSHx: 12:39 left knee; Right hip; mb9 - Immunization history:: Adult Immunizations up to date. - Infectious Disease History:: Denies. - Social history:: Smoking status: Patient denies any tobacco usage or history of. ROS: 12:35 Constitutional: as per hpi ec2 Exam: 12:35 Constitutional: GEN: No acute distress HEENT: -Head: no deformities -Eyes: EOMI CV: ec2 regular rate LUNGS: no respiratory distress ABD: non-tender, soft, no guarding, not rigid. SKIN: Stage I pressure ulcers over the left upper extremity, left lower extremity, left hip. MSK: No C/T/L spine deformities RUE w/o bony deformity LUE w/o bony deformity RLE w/o bony deformity LLE w/o bony deformity NEURO: moves all extremities equally, GCS 15 (E4, V5, M6) Vital Signs: 12:38 BP 178 / 75; Pulse 89; Resp 18; Temp 98.5; Pulse Ox 100% ; Weight 79.38 kg; Height 5 mb9 ft. 6 in. ; Pain 0/10; 14:12 BP 166 / 69; Pulse 82; Resp 18; Temp 98.2; Pulse Ox 100% on R/A; mb9 15:49 BP 166 / 71; Pulse 81; Resp 18; Pulse Ox 100% on R/A; mb9 17:13 BP 126 / 83; Pulse 79; Resp 16; Temp 98.3(O); Pulse Ox 100% on R/A; mb9 22:57 BP 135 / 63; Pulse 72; Resp 16; Pulse Ox 92% on R/A; kd3 10/31 00:29 BP 150 / 56; Pulse 77; Resp 17; Pulse Ox 95% on R/A; kd3 01:23 BP 158 / 61; Pulse 73; Resp 19; Pulse Ox 96% on R/A; kd3 03:05 BP 157 / 52; Pulse 79; Resp 19; Pulse Ox 97% on R/A; kd3 10/30 12:38 Body Mass Index 28.25 (79.38 kg, 167.64 cm) 9 10/30 12:38 Pain Scale: [facility] MDM: 10/30 12:32 Patient medically screened. ec2 12:35 Data reviewed: vital signs. ED course: Patient arrives today for evaluation after being ec2 found on the ground. Examination remarkable for nontoxic individual who is awake and alert and behaving appropriately. Will obtain trauma gram, chest x-ray, urine studies. Patient does smell of urine, high suspicion for urinary tract infection, also evaluating for intracranial brain bleed, C-spine injury, will also assess for dehydration, rhabdomyolysis.. 13:15 ED course: EKG independently reviewed and interpreted by me, shows normal sinus rhythm, ec2 rate 94, no acute ST segment elevations, PACs noted. Intervals nonconcerning. . 13:27 ED course: CBC is reassuring, urine is noninfectious appearing. . ec2 13:43 ED course: Metabolic profile shows hypokalemia, renal dysfunction with creatinine 1.15 ec2 and a GFR of 47, CK is markedly elevated at 2700. Lactate is minimally elevated 2.1. Will give the patient additional liter of crystalloid and admit for rhabdomyolysis. . 15:44 ED course: CT imaging with no acute traumatic process. Will admit for rhabdomyolysis. ec2 Patient updated on the plan of care and agreeable.. 10/30 12:34 Order name: Blood Culture Adult (2) ec2 10/30 12:34 Order name: CBC with Diff; Complete Time: 14:54 ec2 10/30 12:34 Order name: CMP; Complete Time: 13:43 ec2 10/30 12:34 Order name: Lactate w/ 2H reflex if indic.; Complete Time: 13:43 ec2 10/30 12:34 Order name: Protime (+inr); Complete Time: 13:27 ec2 10/30 12:34 Order name: Ptt, Activated; Complete Time: 13:27 ec2 10/30 12:34 Order name: Urinalysis w/ reflexes; Complete Time: 13:27 ec2 10/30 12:34 Order name: CK; Complete Time: 13:43 ec2 10/30 14:41 Order name: CBC Smear Scan; Complete Time: 14:54 EDMS 10/30 15:32 Order name: Lactate w/ 2H reflex if indic. mb9 10/30 15:40 Order name: Ghost Lactate-NO COLLECT Timer; Complete Time: 15:44 EDMS 10/30 17:24 Order name: Urinalysis w/ reflexes EDMS 10/30 17:24 Order name: Basic Metabolic Panel EDMS 10/30 17:24 Order name: Basic Metabolic Panel EDMS 10/30 17:24 Order name: Basic Metabolic Panel EDMS 10/30 17:24 Order name: Basic Metabolic Panel EDMS 10/30 17:24 Order name: Basic Metabolic Panel EDMS 10/30 17:24 Order name: Basic Metabolic Panel EDMS 10/30 17:24 Order name: CBC with Automated Diff EDMS 10/30 17:24 Order name: CBC with Automated Diff EDMS 10/30 17:24 Order name: CBC with Automated Diff EDMS 10/30 17:24 Order name: CBC with Automated Diff EDMS 10/30 17:24 Order name: CBC with Automated Diff EDMS 10/30 17:24 Order name: CBC with Automated Diff EDMS 10/30 17:24 Order name: Magnesium EDMS 10/30 17:24 Order name: Magnesium EDMS 10/30 17:24 Order name: Magnesium EDMS 10/30 17:24 Order name: Magnesium EDMS 10/30 17:24 Order name: Magnesium EDMS 10/30 17:24 Order name: Magnesium EDMS 10/30 17:24 Order name: Phosphorus EDMS 10/30 17:24 Order name: Phosphorus EDMS 10/30 17:24 Order name: Phosphorus EDMS 10/30 17:24 Order name: Phosphorus EDMS 10/30 17:24 Order name: Phosphorus EDMS 10/30 17:24 Order name: Phosphorus EDMS 10/30 20:09 Order name: Lactate Sepsis 2 HR Follow-up [facility] 10/30 12:34 Order name: CT Traumagram (Head C Spine CAP W Con); Complete Time: 15:44 ec2 10/30 17:24 Order name: Physical Therapy Consult [facility] 10/30 12:34 Order name: Accucheck; Complete Time: 12:59 ec2 10/30 12:34 Order name: Cardiac monitoring; Complete Time: 12:38 ec2 10/30 12:34 Order name: EKG - Nurse/Tech; Complete Time: 12:59 ec2 10/30 12:34 Order name: IV Saline Lock - Large Bore; Complete Time: 12:59 ec2 10/30 12:34 Order name: Labs collected and sent; Complete Time: 12:59 ec2 10/30 12:34 Order name: O2 Per Protocol; Complete Time: 12:37 ec2 10/30 12:34 Order name: O2 Sat Monitoring; Complete Time: 12:37 ec2 10/30 12:34 Order name: Vital Signs; Complete Time: 12:37 ec2 Administered Medications: 12:58 Drug: Rocephin IV 1 grams IV at calculated rate once; Given slow IV push per pharmacy mb9 instructions Route: IV; Rate: calculated rate; Site: left antecubital; 14:49 Follow up: Response: No adverse reaction; IV Status: Completed infusion mb9 12:58 Drug: NS 0.9% IV 1000 ml IV at 1 bolus Per protocol; 1000 mL bolus Route: IV; Rate: 1 mb9 bolus; Site: left antecubital; 14:49 Follow up: Response: No adverse reaction; IV Status: Completed infusion mb9 13:48 Drug: NS 0.9% IV 1000 ml IV at 1 bolus Per protocol; 1000 mL bolus Route: IV; Rate: 1 mb9 bolus; Site: left antecubital; 15:49 Follow up: Response: No adverse reaction; IV Status: Completed infusion mb9 15:49 Drug: Acetaminophen PO 1000 mg PO once Route: PO; mb9 17:12 Follow up: Response: No adverse reaction mb9 Disposition Summary: 10/31/23 15:45 Hospitalization Ordered Notes: Hospitalization Status: Inpatient Admission(10/31/23 15:45) ec2 Provider: Eriberto Lopez(10/31/23 15:45) ec2 Location: Telemetry/MedSurg (Inpatient)(10/31/23 15:45) ec2 Condition: Stable(10/31/23 15:45) ec2 Problem: new(10/31/23 15:45) ec2 Symptoms: have improved(10/31/23 15:45) ec2 Bed/Room Type: Standard(10/31/23 15:45) ec2 Room Assignment: 202(10/31/23 23:05) ty Diagnosis - Rhabdomyolysis(10/31/23 15:45) ec2 Forms: - Medication Reconciliation Form ec2 - SBAR form ec2 - Leadership Thank You Letter ec2 Signatures: Dispatcher [employer] EDMS Livia Weaver RN RN mb9 Hermelindo Ruiz MD MD ec2 Milad Benitez ty Corrections: (The following items were deleted from the chart) 12:35 12:35 BLOOD CULTURE*+BA.LAB.BRZ ordered. EDAZ EDMS 12:35 12:35 CBC+H.LAB.BRZ ordered. EDAZ EDMS 12:35 12:35 COMPREHENSIVE METABOLIC PANEL+C.LAB.BRZ ordered. EDAZ EDMS 12:35 12:35 LACTATE+C.LAB.BRZ ordered. EDAZ EDMS 12:35 12:35 PROTIME (+INR)+COAG.LAB.BRZ ordered. EDAZ EDMS 12:35 12:35 PTT, ACTIVATED+COAG.LAB.BRZ ordered. EDAZ EDMS 12:35 12:35 Urinalysis+U.LAB.BRZ ordered. EDMS EDMS 12:35 12:35 CREATINE PHOSPHOKINASE+C.LAB.BRZ ordered. EDAZ EDMS 12:35 12:35 Head C Spine CAP W Con+CT.RAD.BRZ ordered. EDAZ EDMS 13:52 13:45 Inpatient Admission ec2 ec2 13:52 13:45 Lindsay Begum ec2 ec2 13:52 13:45 Telemetry/MedSurg (Inpatient) ec2 ec2 13:52 13:45 Stable ec2 ec2 13:52 13:45 new ec2 ec2 13:52 13:45 have improved ec2 ec2 13:52 13:45 Standard ec2 ec2 13:52 13:45 ec2 ec2 13:52 13:45 Rhabdomyolysis ec2 ec2 15:32 15:32 LACTATE+C.LAB.SALMA ordered. EDMS EDMS 23:05 15:45 ec2 ty
--- NOTE | 2023-10-31 13:45 | ER ---
Nurse's Notes [facility] Name: Nikoel Whelan Age: 83 yrs Sex: Female : 1940 Arrival Date: 10/31/2023 Time: 12:29 Bed 19 Private MD: Diagnosis: Rhabdomyolysis Presentation: 10/30 12:38 Chief complaint: EMS states: "toned out for unknown down time from fall. PT came today mb9 to check on pt and found her on the floor. Pt states her left arm and leg hurt.". Coronavirus screen: At this time, the client does not indicate any symptoms associated with coronavirus-19. Ebola Screen: No symptoms or risks identified at this time. Initial Sepsis Screen: Does the patient meet any 2 criteria? No. Patient's initial sepsis screen is negative. Does the patient have a suspected source of infection? No. Patient's initial sepsis screen is negative. Risk Assessment: Do you want to hurt yourself or someone else? Patient reports no desire to harm self or others. Onset of symptoms. 12:38 Method Of Arrival: EMS: [facility] mb9 12:38 Acuity: LEO 3 mb9 Triage Assessment: 12:41 General: Appears in no apparent distress. Behavior is calm, cooperative. General: mb9 Smells of urine. Pain: Complains of pain in left arm and left leg. EENT: No signs and/or symptoms were reported regarding the EENT system. Neuro: Stallings Agitation-Sedation Scale (RASS): 0 - Alert and Calm Level of Consciousness is awake, alert, obeys commands, Oriented to person, place, time, situation, Appropriate for age. Cardiovascular: Heart tones S1 S2 present Patient's skin is warm and dry. Respiratory: Airway is patent Respiratory effort is even, unlabored, Respiratory pattern is regular, symmetrical, Breath sounds are clear bilaterally. GI: Abdomen is round non-distended. : Urine is cloudy. Derm: Bruising that is bright red, on face, pelvis, left arm and left leg. Musculoskeletal: Range of motion: intact in all extremities. Historical: - Allergies: 12:39 No Known Allergies; mb9 - Home Meds: 12:39 amlodipine oral [Active]; Lovastatin Oral [Active]; olmesartan oral [Active]; mb9 - PMHx: 12:39 Hypercholesterolemia; Hypertensive disorder; mb9 - PSHx: 12:39 left knee; Right hip; mb9 - Immunization history:: Adult Immunizations up to date. - Infectious Disease History:: Denies. - Social history:: Smoking status: Patient denies any tobacco usage or history of. Screenin:42 [facility] ED Fall Risk Assessment (Adult) History of falling in the last 3 months, mb9 including since admission Yes- single mechanical fall (1 pt) Confusion or Disorientation No (0 pts) Intoxicated or Sedated No (0 pts) Impaired Gait No (0 pts) Mobility Assist Device Used No (0 pt) Altered Elimination No (0 pt) Score/Fall Risk Level 3 or more points = High Risk Oriented to surroundings, Maintained a safe environment, Assessed \\T\\ reinforced patient's understanding of fall precautions. Abuse screen: Denies threats or abuse. Nutritional screening: No deficits noted. Tuberculosis screening: No symptoms or risk factors identified. Assessment: 12:58 Reassessment: see triage assessment. mb9 14:12 Reassessment: No changes from previously documented assessment. Patient and/or family mb9 updated on plan of care and expected duration. Pain level reassessed. Patient is alert, oriented x 3, equal unlabored respirations, skin warm/dry/pink. 15:30 Reassessment: No changes from previously documented assessment. Patient and/or family mb9 updated on plan of care and expected duration. Pain level reassessed. Patient is alert, oriented x 3, equal unlabored respirations, skin warm/dry/pink. 17:00 Reassessment: No changes from previously documented assessment. Patient and/or family mb9 updated on plan of care and expected duration. Pain level reassessed. Patient is alert, oriented x 3, equal unlabored respirations, skin warm/dry/pink. 17:45 Reassessment: see [facility] for further charting. mb9 22:56 General: Pt cleaned of incontinence. Pt has loose stool. Pt's urine in collection kd3 container is dark rosita in color and approximately 200 cc. VSS. Warm blanket provided for comfort. . Neuro: Level of Consciousness is awake, alert, obeys commands, Oriented to person, place, time, situation. Respiratory: Airway is patent Trachea midline Respiratory effort is even, unlabored, Respiratory pattern is regular, symmetrical. 10/31 01:24 General: Appears in no apparent distress. Behavior is calm, cooperative. Neuro: Level kd3 of Consciousness is awake, alert, obeys commands, Oriented to person, place, time, situation. Cardiovascular: Patient's skin is warm and dry. Rhythm is regular. Respiratory: Airway is patent Trachea midline Respiratory effort is even, unlabored, Respiratory pattern is regular, symmetrical. Vital Signs: 10/30 12:38 BP 178 / 75; Pulse 89; Resp 18; Temp 98.5; Pulse Ox 100% ; Weight 79.38 kg; Height 5 mb9 ft. 6 in. ; Pain 0/10; 14:12 BP 166 / 69; Pulse 82; Resp 18; Temp 98.2; Pulse Ox 100% on R/A; mb9 15:49 BP 166 / 71; Pulse 81; Resp 18; Pulse Ox 100% on R/A; mb9 17:13 BP 126 / 83; Pulse 79; Resp 16; Temp 98.3(O); Pulse Ox 100% on R/A; mb9 22:57 BP 135 / 63; Pulse 72; Resp 16; Pulse Ox 92% on R/A; kd3 10/31 00:29 BP 150 / 56; Pulse 77; Resp 17; Pulse Ox 95% on R/A; kd3 01:23 BP 158 / 61; Pulse 73; Resp 19; Pulse Ox 96% on R/A; kd3 03:05 BP 157 / 52; Pulse 79; Resp 19; Pulse Ox 97% on R/A; kd3 10/30 12:38 Body Mass Index 28.25 (79.38 kg, 167.64 cm) mb9 10/30 12:38 Pain Scale: Adult mb9 ED Course: 10/30 12:32 Patient arrived in ED. ec2 12:32 Hermelindo Ruiz MD is Attending Physician. ec2 12:37 Livia Weaver RN is Primary Nurse. mb9 12:39 Triage completed. mb9 12:39 Arm band placed on. mb9 12:42 Placed in gown. Bed in low position. Call light in reach. Side rails up X 1. Provided mb9 Education on: press call light if needing anything. Client placed on continuous cardiac and pulse oximetry monitoring. NIBP monitoring applied. inspector casing on. Assisted to bedside commode. Repositioned patient. Cleaned of incontinence. Linen changed. 12:45 First set of blood cultures drawn by me. mb9 12:50 Second set of blood cultures drawn by me. mb9 12:58 Initial lab(s) drawn, Urine collected: clean catch specimen, rosita colored, EKG done, mb9 by ED staff, reviewed by Hermelindo Ruiz MD. Inserted saline lock: 20 gauge in left antecubital area, using aseptic technique. 13:44 Lindsay Begum MD is Hospitalizing Provider. ec2 13:45 CT Traumagram (Head C Spine CAP W Con) In Process Unspecified. EDMS 14:14 Assisted to bedside commode. Repositioned patient. Cleaned of incontinence. Linen mb9 changed. 15:45 Eriberto Lopez is Hospitalizing Provider. ec2 15:50 No provider procedures requiring assistance completed. Patient admitted, IV remains in mb9 place. 15:51 Repositioned patient. Cleaned of incontinence. pure wic placed on pt. mb9 23:35 Called second floor to inform of paperwork sent on patient,spoke to Vandana who advised ty the room is not ready (needs to be cleaned). 10/31 01:08 Called 2nd floor to ask about progress on patient room, Everett VILLA advised room is not ty ready. 01:44 Called 2nd floor in regards to room 202 being cleaned, spoke with Lucinda who advised ty room is still not cleaned and/or ready for patient. Administered Medications: 10/30 12:58 Drug: Rocephin IV 1 grams IV at calculated rate once; Given slow IV push per pharmacy mb9 instructions Route: IV; Rate: calculated rate; Site: left antecubital; 14:49 Follow up: Response: No adverse reaction; IV Status: Completed infusion mb9 12:58 Drug: NS 0.9% IV 1000 ml IV at 1 bolus Per protocol; 1000 mL bolus Route: IV; Rate: 1 mb9 bolus; Site: left antecubital; 14:49 Follow up: Response: No adverse reaction; IV Status: Completed infusion mb9 13:48 Drug: NS 0.9% IV 1000 ml IV at 1 bolus Per protocol; 1000 mL bolus Route: IV; Rate: 1 mb9 bolus; Site: left antecubital; 15:49 Follow up: Response: No adverse reaction; IV Status: Completed infusion mb9 15:49 Drug: Acetaminophen PO 1000 mg PO once Route: PO; mb9 17:12 Follow up: Response: No adverse reaction mb9 Medication: 12:42 VIS not applicable for this client. mb9 Outcome: 13:45 Decision to Hospitalize by Provider. ec2 15:45 Decision to Hospitalize by Provider. ec2 21:14 Admitted to ER Hold. Please see [facility] for further documentation. mb9 21:14 Condition: stable 21:14 Instructed on the need for admit, 10/31 03:39 Patient left the ED. kd3 Signatures: Dispatcher [employer] Jolene Daugherty RN RN kd3 Livia Weaver RN RN mb9 Hermelindo Ruiz MD MD ec2 Milad Benitez Corrections: (The following items were deleted from the chart) 10/30 14:18 14:12 Pulse 82bpm; Resp 18bpm; Pulse Ox 100% RA; Temp 98.2F; mb9 mb9
[2023-10-31 14:41] LABS: Blood Morphology Comment NOT SEEN (NOT SEEN); Platelet Estimate ADEQ; White Blood Cell Scan OK (OK)
--- NOTE | 2023-10-31 15:34 | RAD REPORT ---
EXAM DESCRIPTION: CT - Head C Spine Cap Manuel Telles - 10/31/2023 1:43 pm CLINICAL HISTORY: fall COMPARISON: No comparisons TECHNIQUE: Head and cervical spine CT images were obtained without IV contrast. Chest, abdomen, and pelvis CT images were obtained following intravenous administration of 90 mL Isovue-300. Multiplanar reformats were generated and reviewed. All CT scans are performed using dose optimization technique as appropriate and may include automated exposure control or mA/KV adjustment according to patient size. FINDINGS: CT HEAD: No intracranial hemorrhage, mass effect, or edema. No evidence of acute territorial infarct. No midli ne shift or abnormal fluid collection. The ventricles are normal in caliber and configuration for age . Patchy periventricular and deep white matter hypodensities, nonspecific, but may reflect chronic sm all vessel ischemic changes. Basal cisterns are patent. Mastoid aircells and paranasal sinuses are cl ear. No acute skull fracture. Left frontoparietal scalp swelling and hematoma. CT CERVICAL SPINE: No acute cervical spine fracture or subluxation. Vertebral body heights are well maintained. Facet marly ints are normal in alignment. No hyperattenuating canal hematoma. Prevertebral and paraspinous soft t issues are unremarkable. CT CHEST: No pneumothorax, pulmonary contusion or pleural fluid collection. No mediastinal hematoma and the aor ta and pulmonary arteries are unremarkable. No chest will mass or abnormal axillary finding. No displ aced rib fracture or other significant bony finding. CT ABDOMEN/ PELVIS: No evidence of traumatic injury to solid abdominal viscera. Gallbladder and biliary tree are unremark able. No bowel injury or significant finding. Small bilateral renal cortical cysts, largest at the [facility] lower pole measuring 1.7 cm, not well characterized. No free air, free fluid or abnormal fat stra nding. No urinary bladder abnormality. No significant bony finding. Right hip arthroplasty hardware in place. IMPRESSION: Left frontoparietal scalp swelling and hematoma. No other acute traumatic findings.
[2023-10-31] MEDS ORDERED: ACETAMINOPHEN 500 MG TAB ONE (15:45)
--- NOTE | 2023-10-31 16:33 | P.HP ---
Certification for Inpatient Patient admitted to: Observation With expected LOS: <2 Midnights Practitioner: I am a practitioner with admitting privileges, knowledge of patient current condition, hospital course, and medical plan of care. Services: Services provided to patient in accordance with Admission requirements found in Title 42 Section 412.3 of the Code of Federal Regulations Patient History Date of Service: 10/31/23 Reason for admission: Rhabdomyolysis History of Present Illness: Nikole Whelan is an 83 year old female with PMH hypercholesterolemia, hypothyroidism, and hypertension who presented to the ED with chief complaint of fall overnight with time unknown and she woke up this morning on the floor, someone from the facility found her and helped her up. She was brought to the emergency room for further evaluation. Nikole is a poor historian. Laboratory evaluation showing CK 2741, lactic acid 2.1 then cleared to 1.4, hypokalemia 3.3, BUN/creatinine 25/1.15, GFR 47 Initial vitals BP 178 / 75; Pulse 89; Resp 18; Temp 98.5; Pulse Ox 100% ; CT head reports "Left frontoparietal scalp swelling and hematoma. No other acute traumatic findings." Nikole will be admitted to hospitalist service for further evaluation and treatment of rhabdomyolysis, IV fluids started in the ED. Allergies No Known Drug Allergies Allergy (Verified 08/18/22 07:32) Unknown Home Medications: Amlodipine Besylate 5 mg PO BEDTIME 11/04/21 Donepezil [Aricept*] 5 mg PO BEDTIME 11/04/21 Levothyroxine Sodium [Levoxyl] 0.075 mg PO DAILY 11/04/21 Lovastatin [Altoprev] 20 mg PO BEDTIME 11/04/21 Cholecalciferol (Vitamin D3) [Decara] 25,000 mcg PO Q7D 08/16/23 Folic Acid 1,000 mg PO BID 08/16/23 Mecobalamin [B12 Active] 1,000 mcg PO BID 08/16/23 Memantine HCl [Namenda] 5 mg PO BID 08/16/23 Ensure High Protein 237 ml PO BID #60 can 08/19/23 - Past Medical/Surgical History Diabetic: No -: HTN -: Hypothroid -: Hyperlipidemia -: [place] -: eye surgery (cannot remember) - Family History Mother Notes: Alzheimers, lived into 90's Father -: Heart disease - Social History Alcohol use: No CD- Drugs: No Caffeine use: Yes Review of Systems General: Other (Weakness) Physical Examination - Physical Exam General: Alert, Oriented x2 HEENT: Other (Bruising to left scalp) Neck: Supple, 2+ carotid pulse no bruit Respiratory: Clear to auscultation bilaterally, Normal air movement Cardiovascular: Normal pulses, Regular rate/rhythm, Normal S1 S2 Capillary refill: <2 Seconds Gastrointestinal: Normal bowel sounds, Soft and benign Musculoskeletal: No clubbing Integumentary: No rashes Neurological: Normal speech, Normal tone - Studies Laboratory Data (last 24 hrs) 10/31/23 10/31/23 10/31/23 12:51 12:51 12:51 WBC 8.20 Hgb 14.3 Hct 42.8 Plt Count 191 PT 13.6 H INR 1.24 APTT 38.4 H Sodium 137 Potassium 3.3 L BUN 25 H Creatinine 1.15 H Glucose 109 H Total Bilirubin 0.8 AST 66 H ALT 22 Alkaline Phosphatase 70 Assessment and Plan - Plan Assessment and plan Acute rhabdomyolysis Lactic acidosis Fluid volume deficit Fequent Fall -CK 2741, lactic acid 2.1/1.4, repeat in the morning -Gentle IV fluid -2 L normal saline given in the ED -Rocephin in the ED, continue on the floor -Orthostatics -Continuous telemetry -Follow blood cultures Hypokalemia -Potassium 3.3 -Replete as needed LALITHA -BUN/creatinine 25/1.15, GFR 47 -Gentle IV fluid History hypercholesterolemia History of hypertension History of hypothyroidism -Continue home antibiotics when appropriate DVT PPx Full code LOS 2 to 3 days Discharge Plan: Custodial - Advance Directives Does patient have a Living Will: Yes Does patient have a Durable POA for Healthcare: No
[2023-10-31] MEDS ORDERED: ACETAMINOPHEN 325 MG TABLET PO PRN (17:18)
[2023-10-31] MEDS: NA CHLORIDE 0.9% 1,000 ML IV SCH (18:00)
[2023-10-31 18:17] VITALS: BMI 28.2
[2023-10-31] MEDS: POTASSIUM 25 MEQ EFFERV TAB PO ONE (19:59)
[2023-10-31] MEDS ORDERED: HYDRALAZINE HCL 20 MG/ML VIAL IV PRN (20:05)
[2023-10-31] MEDS ORDERED: POTASSIUM 25 MEQ EFFERV TAB ONE (21:01)
[2023-11-01] MEDS: ACETAMINOPHEN 500 MG TAB PO PRN (03:56)
[2023-11-01 05:57] LABS: Absolute Lymphocytes (CBC) 0.8 K/uL (0.7-4.9); Absolute Monocytes 0.7 K/uL (0.1-1.3); Absolute Neutrophil 4.9 K/uL (1.8-8.0); Basophils % 0.4 % (0-1.3); Hematocrit 36.4 % (36.0-45.0); Hemoglobin 12.5 g/dL (12.0-15.0); Lymphocytes % 12.7 % (15.3-44.8); MCH 33.6 pg (27.0-35.0); MCHC 34.3 g/dL (32.0-36.0); MCV 97.8 fL (80-100); MPV 8.6 fL (7.6-11.3); Monocytes % 10.9 % (3.3-12.3); Platelets 161 thou/uL (152-406); RBC Red Blood Cell Count 3.72 M/uL (3.86-4.86); Red Cell Distribution Width 15.8 % (12.1-15.2)
[2023-11-01 06:18] LABS: Albumin 2.8 g/dL (3.4-5.0); Albumin/Globulin Ratio 0.8 (1.1-1.8); Anion Gap 9.6 mEq/L (5.0-15.0); Bilirubin Total 0.5 mg/dL (0.2-1.0); Globulin 3.5 g/dL (2.3-3.5); Magnesium 1.8 mg/dL (1.6-2.4); Phosphorus 2.8 mg/dL (2.5-4.9); Potassium 3.6 mEq/L (3.5-5.1); Protein, Total 6.3 g/dL (6.4-8.2)
[2023-11-01] MEDS ORDERED: NACHLORIDE 0.45% 1,000 ML with NA BICARB 8.4% 100 MEQ IV SCH (08:30)
[2023-11-01] MEDS: CEFTRIAXONE 1,000 MG in NA CHLORIDE 0.9% 50 ML IVPB SCH (08:50)
[2023-11-01] MEDS: HEPARIN 5000 UNIT/ML 1 ML VIAL SQ SCH (08:50)
[2023-11-01] MEDS: POTASSIUM 25 MEQ EFFERV TAB PO ONE (08:51)
[2023-11-01] MEDS: MAGNESIUM SULFATE 1 gm IVPB 1 GM/100 ML BAG IV ONE (08:51)
[2023-11-01] MEDS: NACHLORIDE 0.45% 1,000 ML with NA BICARB 8.4% 50 MEQ IV SCH (09:49)
--- NOTE | 2023-11-01 14:17 | EKG ---
Test Date: 2023-10-31 Test Time: 13:00:52 [employer] Supervisor: CARL MEASUREMENT RESULTS: Intervals: Rate: 94 WV: 194 QRSD: 78 QT: 374 QTc: 467 [place]: P: 114 WV: 194 QRS: 77 T: 79 INTERPRETIVE STATEMENTS: Sinus rhythm with premature atrial complexes ST abnormality, possible digitalis effect Abnormal ECG Compared to ECG 08/16/2022 15:48:27 Atrial premature complex(es) now present ST (T wave) deviation now present Myocardial infarct finding no longer present Electronically Signed On 11-01-23 14:12:51 CDT by Derek Connelly
--- NOTE | 2023-11-01 18:46 | P.HP ---
Certification for Inpatient Patient admitted to: Inpatient With expected LOS: >2 Midnights Practitioner: I am a practitioner with admitting privileges, knowledge of patient current condition, hospital course, and medical plan of care. Services: Services provided to patient in accordance with Admission requirements found in Title 42 Section 412.3 of the Code of Federal Regulations Patient History Date of Service: 11/01/23 Reason for admission: Rhabdomyolysis History of Present Illness: MARLYN IS NOT ABLE TO GIVE ANY HISTORY. SHE HAS NO RECALL OF WHAT HAPPENED. I WAS TOLD BY THE NPP THAT SHE HAS BEEN FALLING AT HOME. SHE WAS FOUND TO HAVE CPK IN AND ADMITTED. THERE WAS NO IV FLUID ORDER SO I TOOK CARE OF CARB DRIP THAT SHOULD HELP RHABDO. SHE HAD MULTIPLE CT SCANS IN ER THAT WERE NEGATIVE. MOSTLY AN UN-NECESSARY EXERCISE. WE CALLED FAMILY TWICE AND LEFT MESSAGES. Allergies No Known Drug Allergies Allergy (Verified 11/01/23 03:55) Unknown Home medications list reviewed: Yes Home Medications: Amlodipine [Norvasc*] 1 tab PO DAILY 11/01/23 Donepezil HCl 1 tab PO BID 11/01/23 Levothyroxine [Synthroid*] 1 tab PO DAILY 11/01/23 Lovastatin 1 tab PO BEDTIME 11/01/23 Olmesartan Medoxomil 1 tab PO DAILY 11/01/23 - Past Medical/Surgical History Has patient received pneumonia vaccine in the past: Yes Diabetic: No -: HTN -: Hypothroid -: Hyperlipidemia -: MILD COGNITIVE IMPAIRMENT -: Carpel Tunnel -: eye surgery (cannot remember) - Family History Mother Notes: Alzheimers, lived into 90's Father -: Heart disease - Social History Smoking Status: Former smoker Alcohol use: No CD- Drugs: No Caffeine use: Yes Physical Examination - Vital Signs Temperature: 99.7 F Blood Pressure: 147/60 Pulse: 71 Respirations: 18 Pulse Ox (%): 94 - Physical Exam General: Alert, In no apparent distress HEENT: Atraumatic, PERRLA, Mucous membr. moist/pink, EOMI, Sclerae nonicteric Neck: Supple, 2+ carotid pulse no bruit, No LAD, Without JVD or thyroid abnormality Respiratory: Clear to auscultation bilaterally, Normal air movement Cardiovascular: Regular rate/rhythm, Normal S1 S2 Gastrointestinal: Normal bowel sounds, No tenderness Musculoskeletal: No tenderness Integumentary: No rashes Neurological: Normal gait, Normal speech, Normal strength at 5/5 x4 extr, Normal tone, Normal affect Lymphatics: No axilla or inguinal lymphadenopathy Assessment and Plan - Problems (Diagnosis) (1) Rhabdomyolysis Current Visit: Yes Status: Acute Plan: IV HALF NORMAL SALINE WITH BICARB DRIP LAB DAILY PT CONSULT SHE SHOULD NOT BE LIVING ALONE BUT SHE IS NOT COOPERATING PER REPORT BY NPP WITH HER DISCUSSON WITH NIECE. SW CONSULT MPOA CONSULT PAPERWORK FOR MPOA (2) Mild cognitive impairment Current Visit: Yes Status: Chronic Plan: FU AT OFFICE SHE IS FOLLOWED BY DR. CIELO VALIENTE. (3) Hypokalemia Onset Date: 06/04/14 Current Visit: No Status: Acute - Advance Directives Does patient have a Living Will: Yes Does patient have a Durable POA for Healthcare: No
[2023-11-01] MEDS: ATORVASTATIN 10 MG TAB PO SCH (21:11)
[2023-11-01] MEDS: DONEPEZIL HCL 5 MG TAB PO SCH (21:17)
[2023-11-02 03:56] LABS: Absolute Lymphocytes (CBC) 1.4 K/uL (0.7-4.9); Absolute Monocytes 0.7 K/uL (0.1-1.3); Absolute Neutrophil 2.5 K/uL (1.8-8.0); Basophils % 0.5 % (0-1.3); Eosinophils % 0.2 % (0-4.4); Hematocrit 33.2 % (36.0-45.0); Hemoglobin 11.2 g/dL (12.0-15.0); Lymphocytes % 30.4 % (15.3-44.8); MCH 33.1 pg (27.0-35.0); MCHC 33.8 g/dL (32.0-36.0); MCV 97.9 fL (80-100); MPV 9.1 fL (7.6-11.3); Monocytes % 14.4 % (3.3-12.3); Neutrophils % 54.5 % (41.7-73.7); Nucleated Red Blood Cells % 0.1 % (0-0); Platelets 144 thou/uL (152-406); RBC Red Blood Cell Count 3.39 M/uL (3.86-4.86); Red Cell Distribution Width 15.5 % (12.1-15.2)
[2023-11-02 04:09] LABS: Albumin 2.6 g/dL (3.4-5.0); Albumin/Globulin Ratio 0.8 (1.1-1.8); Anion Gap 8.4 mEq/L (5.0-15.0); Bilirubin Total 0.3 mg/dL (0.2-1.0); Globulin 3.2 g/dL (2.3-3.5); Magnesium 1.8 mg/dL (1.6-2.4); Phosphorus 2.5 mg/dL (2.5-4.9); Potassium 3.4 mEq/L (3.5-5.1); Protein, Total 5.8 g/dL (6.4-8.2)
[2023-11-02] MEDS: MAGNESIUM SULFATE 1 gm IVPB 1 GM/100 ML BAG IV ONE (04:48)
[2023-11-02] MEDS ORDERED: POTASS/SODIUM PHOSPHATE 1 PKT POWD.PACK PO SCH (05:00)
[2023-11-02] MEDS: LEVOTHYROXINE SOD 0.075 MG TAB PO SCH (07:58)
[2023-11-02] MEDS: POTASS/SODIUM PHOSPHATE 1 PKT POWD.PACK PO SCH (09:28)
[2023-11-02] MEDS: AMLODIPINE 5 MG TAB PO SCH (09:29)
[2023-11-02] MEDS: VALSARTAN 80 MG TAB PO SCH (09:32)
[2023-11-02] MEDS ORDERED: TRAMADOL HCL 50 MG TAB PO PRN (13:06)
--- NOTE | 2023-11-02 17:37 | P.PN ---
Subjective Date of Service: 11/02/23 Chief Complaint: Rhabdomyolysis Subjective: Improving HAS A LOT OF PAIN ALL OVER. Review of Systems 10-point ROS is otherwise unremarkable General: Weakness Physical Examination - Vital Signs Temperature: 98.5 F Blood Pressure: 136/55 Pulse: 75 Respirations: 20 Pulse Ox (%): 91 - Physical Exam General: Mild distress HEENT: Atraumatic, PERRLA, EOMI Neck: Supple, JVD not distended Respiratory: Clear to auscultation bilaterally, Normal air movement Cardiovascular: Regular rate/rhythm, Normal S1 S2 Gastrointestinal: Normal bowel sounds, No tenderness Musculoskeletal: No tenderness Integumentary: No rashes Neurological: Normal speech, Normal tone, Normal affect Lymphatics: No axilla or inguinal lymphadenopathy - Studies Medications List Reviewed: Yes Assessment And Plan - Current Problems (Diagnosis) (1) Rhabdomyolysis Current Visit: Yes Status: Acute Plan: IV HALF NORMAL SALINE WITH BICARB DRIP LAB DAILY PT CONSULT SHE SHOULD NOT BE LIVING ALONE BUT SHE IS NOT COOPERATING PER REPORT BY NPP WITH HER DISCUSSON WITH NIECE. SW CONSULT MPOA CONSULT PAPERWORK FOR MPOA (2) Mild cognitive impairment Current Visit: Yes Status: Chronic Plan: FU AT OFFICE SHE IS FOLLOWED BY DR. CIELO VALIENTE. (3) Hypokalemia Onset Date: 06/04/14 Current Visit: No Status: Acute (4) PMR (polymyalgia rheumatica) Current Visit: Yes Status: Acute Plan: SHE HAS PAIN ALL OVER CRP IS HIGH STEROID TRIAL.
[2023-11-02] MEDS: dexAMETHasone 4 MG/ML VIAL IV ONE (17:55)
[2023-11-03 03:57] LABS: Absolute Lymphocytes (CBC) 0.5 K/uL (0.7-4.9); Absolute Monocytes 0.1 K/uL (0.1-1.3); Absolute Neutrophil 2.4 K/uL (1.8-8.0); Basophils % 0.3 % (0-1.3); Hematocrit 35.1 % (36.0-45.0); Lymphocytes % 15.9 % (15.3-44.8); MCH 33.2 pg (27.0-35.0); MCHC 34.1 g/dL (32.0-36.0); MCV 97.3 fL (80-100); MPV 8.9 fL (7.6-11.3); Monocytes % 4.3 % (3.3-12.3); Neutrophils % 79.5 % (41.7-73.7); Nucleated Red Blood Cells % 0.1 % (0-0); Platelets 153 thou/uL (152-406); RBC Red Blood Cell Count 3.61 M/uL (3.86-4.86); Red Cell Distribution Width 15.4 % (12.1-15.2)
[2023-11-03 04:23] LABS: Albumin 2.6 g/dL (3.4-5.0); Albumin/Globulin Ratio 0.7 (1.1-1.8); Bilirubin Total 0.3 mg/dL (0.2-1.0); Globulin 3.5 g/dL (2.3-3.5); Magnesium 1.9 mg/dL (1.6-2.4); Phosphorus 3.3 mg/dL (2.5-4.9); Protein, Total 6.1 g/dL (6.4-8.2)
[2023-11-03] MEDS: POTASSIUM CL SA 10 MEQ TAB PO SCH (08:04)
[2023-11-03] MEDS: predniSONE 20 MG TAB PO SCH (08:04)
--- NOTE | 2023-11-03 21:48 | P.PN ---
Subjective Date of Service: 11/03/23 Chief Complaint: Rhabdomyolysis Subjective: Improving HAS A LOT OF PAIN ALL OVER. SHE IS A LOT BETTER AFTER ONE DOSE OF IV STEROID FOR PMR Review of Systems 10-point ROS is otherwise unremarkable General: Weakness Physical Examination - Vital Signs Temperature: 98.6 F Blood Pressure: 147/58 Pulse: 64 Respirations: 16 Pulse Ox (%): 95 - Physical Exam General: Oriented x3, Acute distress HEENT: Atraumatic, PERRLA, EOMI Neck: Supple, JVD not distended Respiratory: Clear to auscultation bilaterally, Normal air movement Cardiovascular: Regular rate/rhythm, Normal S1 S2 Gastrointestinal: Normal bowel sounds, No tenderness Musculoskeletal: No tenderness Integumentary: No rashes Neurological: Normal speech, Normal tone, Normal affect Lymphatics: No axilla or inguinal lymphadenopathy - Studies Medications List Reviewed: Yes Assessment And Plan - Current Problems (Diagnosis) (1) Rhabdomyolysis Current Visit: Yes Status: Acute Plan: IV HALF NORMAL SALINE WITH BICARB DRIP LAB DAILY PT CONSULT SHE SHOULD NOT BE LIVING ALONE BUT SHE IS NOT COOPERATING PER REPORT BY NPP WITH HER DISCUSSON WITH NIECE. SW CONSULT MPOA CONSULT PAPERWORK FOR MPOA (2) Mild cognitive impairment Current Visit: Yes Status: Chronic Plan: FU AT OFFICE SHE IS FOLLOWED BY DR. CIELO VALIENTE. (3) Hypokalemia Onset Date: 06/04/14 Current Visit: No Status: Acute (4) PMR (polymyalgia rheumatica) Current Visit: Yes Status: Acute Plan: SHE HAS PAIN ALL OVER CRP IS HIGH STEROID TRIAL. ONE DOSE CLEARED HER PAIN CHANGE TO ORAL STEORIDS.
[2023-11-04 04:09] LABS: Absolute Lymphocytes (CBC) 1.3 K/uL (0.7-4.9); Absolute Monocytes 0.6 K/uL (0.1-1.3); Absolute Neutrophil 3.5 K/uL (1.8-8.0); Basophils % 0.3 % (0-1.3); Hematocrit 31.9 % (36.0-45.0); Hemoglobin 10.8 g/dL (12.0-15.0); Lymphocytes % 24.4 % (15.3-44.8); MCHC 33.9 g/dL (32.0-36.0); MCV 97.5 fL (80-100); MPV 9.5 fL (7.6-11.3); Monocytes % 10.8 % (3.3-12.3); Neutrophils % 64.5 % (41.7-73.7); Platelets 145 thou/uL (152-406); RBC Red Blood Cell Count 3.27 M/uL (3.86-4.86); Red Cell Distribution Width 15.3 % (12.1-15.2)
[2023-11-04 04:15] LABS: Albumin 2.5 g/dL (3.4-5.0); Albumin/Globulin Ratio 0.8 (1.1-1.8); Anion Gap 5.7 mEq/L (5.0-15.0); Bilirubin Total 0.3 mg/dL (0.2-1.0); Globulin 3.2 g/dL (2.3-3.5); Phosphorus 2.7 mg/dL (2.5-4.9); Potassium 3.7 mEq/L (3.5-5.1); Protein, Total 5.7 g/dL (6.4-8.2)
[2023-11-04] MEDS: POTASSIUM 25 MEQ EFFERV TAB PO ONE (08:39)
[2023-11-04 10:57] VITALS: O2SAT 92
[2023-11-04 16:51] VITALS: BP 160/72; TEMP 97.8
--- NOTE | 2023-11-08 21:56 | P.DS ---
Admission Date: 10/31/23 Discharge Date: 11/08/23 Disposition: DC HOME/HOME HEALTH CARE Discharge Condition: FAIR Reason for Admission: Rhabdomyolysis - Problems (1) Rhabdomyolysis Status: Acute (2) Mild cognitive impairment Status: Chronic (3) Hypokalemia Onset Date: 06/04/14 Status: Acute (4) PMR (polymyalgia rheumatica) Status: Acute Brief History of Present Illness: MARLYN IS NOT ABLE TO GIVE ANY HISTORY. SHE HAS NO RECALL OF WHAT HAPPENED. I WAS TOLD BY THE NPP THAT SHE HAS BEEN FALLING AT HOME. SHE WAS FOUND TO HAVE CPK IN AND ADMITTED. THERE WAS NO IV FLUID ORDER SO I TOOK CARE OF CARB DRIP THAT SHOULD HELP RHABDO. SHE HAD MULTIPLE CT SCANS IN ER THAT WERE NEGATIVE. MOSTLY AN UN-NECESSARY EXERCISE. WE CALLED FAMILY TWICE AND LEFT MESSAGES. Hospital Course: MARLYN COMES AFTER FALLING AT HOME HER CPK WAS HIGH IN THOUSANDS. IT CAME DOWN WITH BICARB DRP. SHE LATER COMPLAINED OF PAIN ALL OVER. HER CRP ADN SED RATE ARE HIGH SUGGESTIVE OF PMR. SHE RESPONDED WELL TO STEROIDS AND WILL CONTINUE AT HOME. SHE IS HOME WITH PT. Vital Signs/Physical Exam: Temp Pulse Resp BP Pulse Ox 97.8 F 71 16 160/72 H 92 11/04/23 16:00 11/04/23 16:00 11/04/23 16:00 11/04/23 16:00 11/04/23 16:00 Laboratory Data at Discharge: WBC 5.40 thou/uL (4.3-10.9) 11/04/23 03:13 Hgb 10.8 g/dL (12.0-15.0) L D 11/04/23 03:13 Hct 31.9 % (36.0-45.0) L 11/04/23 03:13 Plt Count 145 thou/uL (152-406) L 11/04/23 03:13 PT 13.6 SECONDS (9.5-12.5) H 10/31/23 12:51 INR 1.24 10/31/23 12:51 APTT 38.4 SECONDS (24.3-36.9) H 10/31/23 12:51 Sodium 141 mEq/L (136-145) 11/04/23 03:13 Potassium 3.7 mEq/L (3.5-5.1) 11/04/23 03:13 BUN 20 mg/dL (7-18) H 11/04/23 03:13 Creatinine 0.79 mg/dL (0.55-1.02) 11/04/23 03:13 Glucose 119 mg/dL (74-106) H 11/04/23 03:13 Phosphorus 2.7 mg/dL (2.5-4.9) 11/04/23 03:13 Magnesium 2.0 mg/dL (1.6-2.4) 11/04/23 03:13 Total Bilirubin 0.3 mg/dL (0.2-1.0) 11/04/23 03:13 AST 30 U/L (15-37) 11/04/23 03:13 ALT 24 U/L (13-56) 11/04/23 03:13 Alkaline Phosphatase 53 U/L (45-117) 11/04/23 03:13 Home Medications: Amlodipine [Norvasc*] 1 tab PO DAILY 11/01/23 Donepezil HCl 1 tab PO BID 11/01/23 Levothyroxine [Synthroid*] 1 tab PO DAILY 11/01/23 Olmesartan Medoxomil 1 tab PO DAILY 11/01/23 predniSONE [Prednisone*] 20 mg PO DAILY #90 tab 11/04/23 New Medications: predniSONE [Prednisone*] 20 mg PO DAILY #90 tab Followup: Luci Hernández MD [Primary Care Provider] - 1-2 Weeks
== END 2023-11-04 19:10 | disposition home health service (06) | DRG 558 ==
LOC: ER 12:29 → ERHOLD 17:18 → 2ND 11-01 03:06
PROVIDERS: ADMIT Internal Medicine; ATTEND Internal Medicine
DX: M62.82 Rhabdomyolysis (principal); E87.20 Acidosis, unspecified; N17.9 Acute kidney failure, unspecified; E87.6 Hypokalemia; E03.9 Hypothyroidism, unspecified; I10 Essential (primary) hypertension; M35.3 Polymyalgia rheumatica; E78.00 Pure hypercholesterolemia, unspecified; G31.84 Mild cognitive impairment of uncertain or unknown etiology; Z79.52 Long term (current) use of systemic steroids; Z79.890 Hormone replacement therapy; Z79.899 Other long term (current) drug therapy; Z87.891 Personal history of nicotine dependence
CPT/HCPCS: 36415; 70450; 71260; 72125; 74177; 80053; 81001; 82085; 82306; 82550; 82607; 83605; 83735; 84100; 85025; 85610; 85730; 86140; 87040; 87070; 87077; 87186; 87205; 93005; 96361; 96365; 96366; 97116; 97162; 97530; 99285; J0696; J1100; J1644; J3475; J7030; J7512; Q9967

== ENCOUNTER 2024-03-06 16:56 | Inpatient (IN) | payer BC ==
--- NOTE | 2024-03-06 17:28 | RAD REPORT ---
EXAMINATION: ONE VIEW CHEST XR CLINICAL INDICATION: Female, 83 years old.COUGH TECHNIQUE: 1 View, AP supine, X-ray of the chest was performed. [id number]. COMPARISON: 08/16/2023 FINDINGS: Lungs and pleura: Clear lungs. No effusion. Heart and mediastinum: Normal heart size. Unremarkable mediastinal contours. Osseous structures: No acute abnormality. Tubes/lines: None Other: None. IMPRESSION: No acute intrathoracic abnormality.
[2024-03-06 18:16] LABS: SARS-CoV-2 Antigen CONTROL BLUE LINE VIS/BG OK; SARS-CoV-2 Antigen Rapid Res Negative (Negative)
[2024-03-06 18:23] LABS: Absolute Basophils 0.1 K/uL (0-0.5); Absolute Lymphocytes (CBC) 0.9 K/uL (0.7-4.9); Absolute Monocytes 0.6 K/uL (0.1-1.3); Absolute Neutrophil 9.6 K/uL (1.8-8.0); Basophils % 0.5 % (0-1.3); Hematocrit 40.9 % (36.0-45.0); Hemoglobin 13.5 g/dL (12.0-15.0); Lymphocytes % 8.2 % (15.3-44.8); MCH 33.1 pg (27.0-35.0); MCV 100.2 fL (80-100); MPV 8.3 fL (7.6-11.3); Neutrophils % 86.3 % (41.7-73.7); Platelets 221 thou/uL (152-406); RBC Red Blood Cell Count 4.08 M/uL (3.86-4.86); Red Cell Distribution Width 15.1 % (12.1-15.2)
[2024-03-06 18:28] LABS: PT Prothrombin Time 16.2 SECONDS (9.4-12.5); PTT, Activated Partial Thromb 35.4 SECONDS (24.3-36.9); Protime INR 1.46
[2024-03-06 18:41] LABS: AST/SGOT 12 U/L (15-37); Albumin 3.6 g/dL (3.4-5.0); Albumin/Globulin Ratio 1.1 (1.1-1.8); Alkaline Phosphatase 68 U/L (45-117); Anion Gap 11.2 mEq/L (5.0-15.0); BUN Blood Urea Nitrogen 22 mg/dL (7-18); Bicarbonate 29 mEq/L (21-32); Globulin 3.4 g/dL (2.3-3.5); Glomerular Filtration Rate 39 ml/min (=/>90); Glucose Level 101 mg/dL (74-106); Potassium 4.2 mEq/L (3.5-5.1); Sodium Level 139 mEq/L (136-145)
[2024-03-06 18:44] LABS: ALT/SGPT < 14 U/L (13-56)
--- NOTE | 2024-03-06 19:25 | RAD REPORT ---
EXAMINATION: CT ABDOMEN AND PELVIS WITH CONTRAST CLINICAL INDICATION: Female, 83 years old.nausea TECHNIQUE: CT abdomen and pelvis was performed, after the administration of IV contrast, as per [facility] protocol. Axial, sagittal and coronal reconstructions were obtained. One or more of the following dose reduction techniques were used: Automated exposure control, adjustment of the mA and/o r kV according to patient size, and/or iterative reconstruction. Unless otherwise specified, incidental findings do not require dedicated imaging follow-up. [id number]. COMPARISON: 08/16/2023 FINDINGS: LOWER CHEST: The visualized lung bases are clear. LIVER: Hepatic steatosis. GALLBLADDER/BILE DUCT: No biliary ductal dilatation.? PANCREAS: No significant abnormality. SPLEEN: Normal size. No focal lesion. ADRENALS: Normal; no mass. KIDNEYS AND URETERS: Bilateral renal lesions which are either benign in appearance or too small to ac curately characterize but statistically benign. GASTROINTESTINAL TRACT: Stomach is non-dilated. Small bowel has normal course and caliber. No colonic wall thickening or pericolonic inflammatory changes. Diverticulosis without diverticulitis. PERITONEUM: No ascites. LYMPH NODES: No lymphadenopathy. ABDOMINAL AORTA AND OTHER VESSELS: Atherosclerosis. No aneurysm URINARY BLADDER: Normal contour. REPRODUCTIVE ORGANS: No pathologic process MUSCULOSKELETAL: Right hip arthroplasty. There is abnormal enlargement of the right gluteus musculatu re as well as possible fluid collection at the greater trochanter. This area is partially obscured by streak artifact. The greater trochanter, this measures approximately 7 x 3.3 cm. Some stranding is present. This is of uncertain etiology. ADDITIONAL FINDINGS: None. IMPRESSION: Possible fluid collection at the greater trochanter as well as asymmetric enlargement of the right gl uteus musculature. This is new since 08/16/2023. This could be related to recent trauma with intramuscular hematoma if there is a history. Alternatively, this could be secondary to infection and possible abscesses in the appropriate clinical setting. Consider orthopedic consultation if infection is suspected.
[2024-03-06 19:41] LABS: Blood Morphology Comment NOT SEEN (NOT SEEN); Platelet Estimate ADEQ; White Blood Cell Scan OK (OK)
[2024-03-06 20:21] LABS: Sqamous Epithelial <5 /HPF (None Seen); Urine Bacteria None Seen /HPF (<20); Urine Bilirubin NEGATIVE (Negative); Urine Blood Negative (Negative); Urine Clarity Clear (Clear); Urine Color Yellow (Yellow); Urine Culture Reflex Order NOT NEEDED; Urine Glucose NEGATIVE (Negative); Urine Ketones 1+ (Negative); Urine Microscopic Reflex YN ORDER UMIC; Urine Mucus Slight /HPF (None Seen); Urine Nitrite NEGATIVE (Negative); Urine Protein 1+ (Negative); Urine RBC <5 /HPF (None Seen); Urine Urobilinogen 1+ (Normal); Urine WBC <5 /HPF (<5); Urine pH 7.5 (5.0-7.0)
[2024-03-06 20:31] LABS: Specific Gravity > 1.030 (1.005-1.030)
[2024-03-06] MEDS ORDERED: NA CHLORIDE 0.9% 250 ML ONE (20:40)
[2024-03-06] MEDS ORDERED: VANCOMYCIN 1 GM/VIAL ONE (20:40)
--- NOTE | 2024-03-06 20:54 | ER ---
Nurse's Notes [facility] Name: Nikole Whelan Age: 83 yrs Sex: Female : 1940 Arrival Date: 03/06/2024 Time: 16:56 Bed 2 Private MD: Diagnosis: Infected hematoma/fluid collection right gluteus near greater trochanter Presentation: 03/06 17:00 Chief complaint: EMS states: patient called due to not feeling well for the past few ko1 days, having body aches and chills. Coronavirus screen: At this time, the client does not indicate any symptoms associated with coronavirus-19. Ebola Screen: No symptoms or risks identified at this time. Initial Sepsis Screen: Does the patient meet any 2 criteria? No. Patient's initial sepsis screen is negative. Does the patient have a suspected source of infection? No. Patient's initial sepsis screen is negative. Risk Assessment: Do you want to hurt yourself or someone else? Patient reports no desire to harm self or others. Onset of symptoms is unknown. Care prior to arrival: Medication(s) given: Normal saline infusion, 1000 mL, IV initiated. 18 GA, in the right antecubital area. 17:00 Method Of Arrival: EMS: [facility] ko1 17:00 Acuity: LEO 3 ko1 Triage Assessment: 17:01 General: Appears in no apparent distress. Behavior is calm, cooperative, appropriate ko1 for age. Pain: Complains of pain in all over. 17:01 EENT: No deficits noted. Neuro: No deficits noted. Cardiovascular: No deficits noted. ko1 Respiratory: No deficits noted. GI: Reports nausea. : No deficits noted. Derm: No deficits noted. Musculoskeletal: Reports pain in all over. Historical: - Allergies: 17:01 No Known Allergies; ko1 - PMHx: 17:01 Hypercholesterolemia; Hypertensive disorder; ko1 - PSHx: 17:01 left knee; Right hip; ko1 - Immunization history:: Adult Immunizations unknown. - Infectious Disease History:: Denies. - Social history:: Smoking status: Patient denies any tobacco usage or history of. - Family history:: not pertinent. - Hospitalizations: : No recent hospitalization is reported. Screenin:05 [facility] ED Fall Risk Assessment (Adult) History of falling in the last 3 months, ko1 including since admission No falls in past 3 months (0 pts) Confusion or Disorientation No (0 pts) Intoxicated or Sedated No (0 pts) Impaired Gait No (0 pts) Mobility Assist Device Used No (0 pt) Altered Elimination No (0 pt) Score/Fall Risk Level 0 - 2 = Low Risk Oriented to surroundings, Maintained a safe environment, Educated pt \T\ family on fall prevention, incl call for assistance when getting out of bed, Assessed \T\ reinforced patient's understanding of fall precautions, Provided non-skid footwear, Hourly rounding (assess needs \T\ fall precautionary measures) done. Abuse screen: Denies threats or abuse. Denies injuries from another. Nutritional screening: No deficits noted. Tuberculosis screening: No symptoms or risk factors identified. Assessment: 17:05 Reassessment: see triage note. ko1 19:10 Reassessment: Patient and/or family updated on plan of care and expected duration. Pain br2 level reassessed. Patient is alert, oriented x 3, equal unlabored respirations, skin warm/dry/pink. General: Appears in no apparent distress. comfortable, Behavior is calm, cooperative. Pain: Denies pain. Neuro: Stallings Agitation-Sedation Scale (RASS): 0 - Alert and Calm Level of Consciousness is awake, alert, obeys commands, Oriented to person, place, time, situation. Cardiovascular: Denies chest pain, shortness of breath. Respiratory: Airway is patent. GI: No signs and/or symptoms were reported involving the gastrointestinal system. : No signs and/or symptoms were reported regarding the genitourinary system. EENT: No signs and/or symptoms were reported regarding the EENT system. Derm: Skin is intact, Skin is dry, Skin is pale, Skin temperature is warm Bruising that is dark purple, PURPLE BRUISE TO COCCYX AREA WITH HEMATOMA...PT STATES SHE FEEL IN THE PAST. . Vital Signs: 17:00 BP 113 / 93; Pulse 92; Resp 17; Temp 97; Pulse Ox 98% on R/A; ko1 18:16 BP 133 / 74; Pulse 90; Resp 16; Pulse Ox 100% on R/A; ko1 19:00 BP 131 / 57; Pulse 94; Resp 18; Pulse Ox 96% ; cp4 20:00 BP 138 / 76; Pulse 103; Resp 18; Pulse Ox 99% ; cp4 21:00 BP 107 / 94; Pulse 99; Resp 18; Pulse Ox 98% ; cp4 ED Course: 16:57 Patient arrived in ED. ko1 17:01 Noble Serrano MD is Attending Physician. rn 17:01 Triage completed. ko1 17:01 Arm band placed on right wrist. Patient placed in an exam room, on a stretcher, on ko1 pulse oximetry, Patient notified of wait time. 17:05 Patient has correct armband on for positive identification. Fall risk band placed. ko1 Placed in gown. Bed in low position. Call light in reach. Side rails up X2. Provided Education on: labs. Client placed on continuous cardiac and pulse oximetry monitoring. NIBP monitoring applied. panel monitor on. Door closed. Noise minimized. Lights dimmed. Warm blanket given. Pillow given. 17:05 Maintain EMS IV. Dressing intact. Good blood return noted. Site clean \T\ dry. Gauge \T\ ko 1 site: 18g, right AC. Flushed with 10 mL NS. 17:05 No provider procedures requiring assistance completed. ko1 17:22 Chest Single View XRAY In Process Unspecified. EDMS 17:23 EKG done, by ED staff, reviewed by Noble Serrano MD. ap3 17:44 Nereyda Benavides, DAISY is Primary Nurse. ko1 18:15 Blood Culture Adult (2) Sent. ko1 18:15 CBC with Diff Sent. ko1 18:15 CMP Sent. ko1 18:15 Lactate w/ 2H reflex if indic. Sent. ko1 18:15 Protime (+inr) Sent. ko1 18:15 Ptt, Activated Sent. ko1 18:16 Flu Sent. ko1 18:16 SARS RAPID Sent. ko1 19:16 CT Abd/Pelvis - IV Contrast Only In Process Unspecified. EDMS 20:53 Omega Somers MD is Hospitalizing Provider. rn 21:04 Blood Culture Adult (2) Sent. br2 21:22 Patient admitted, IV remains in place. br2 Administered Medications: 21:12 Drug: vancoMYCIN IVPB 1 grams IVPB once over 2 hrs Route: IVPB; Infused Over: 2 hrs; br2 Site: right antecubital; 21:21 Follow up: Response: No adverse reaction; IV Status: Infusion continued upon admission br2 Medication: 18:16 VIS not applicable for this client. ko1 Outcome: 20:54 Decision to Hospitalize by Provider. rn 21:21 Admitted to OR accompanied by nurse, via stretcher, br2 21:21 Condition: stable 21:21 Instructed on the need for admit, 21:23 Patient left the ED. br2 Signatures: Dispatcher [employer] EDMS Noble Serrano MD MD rn Prokisch, Amanda, RN RN [email or web address] Nereyda Benavides RN RN ko1 Lucinda Tripp cp4 Ada Lamar RN RN br2
--- NOTE | 2024-03-06 20:54 | EDPHYS ---
Physician Documentation [facility] Name: Nikole Whelan Age: 83 yrs Sex: Female : 1940 Arrival Date: 03/06/2024 Time: 16:56 Bed 2 Private MD: ED Physician Noble Serrano HPI: 03/06 18:04 This 83 yrs old Female presents to ER via EMS with complaints of Doesn't Feel Right. rn 18:05 Onset: The symptoms/episode began/occurred 2 day(s) ago. Severity of symptoms: At their rn worst the symptoms were moderate in the emergency department the symptoms are unchanged. The patient has not experienced similar symptoms in the past. The patient has not recently seen a physician. Patient reports feeling sick, does not feel right, reports chills with cough, mild shortness of breath, nausea and myalgias. No trauma. No documented fever. denies vomiting or diarrhea. 20:29 Pt states has been feeling weak, having trouble getting off the floor, unsure if has rn fallen. . Historical: - Allergies: 17:01 No Known Allergies; ko1 - PMHx: 17:01 Hypercholesterolemia; Hypertensive disorder; ko1 - PSHx: 17:01 left knee; Right hip; ko1 - Immunization history:: Adult Immunizations unknown. - Infectious Disease History:: Denies. - Social history:: Smoking status: Patient denies any tobacco usage or history of. - Family history:: not pertinent. - Hospitalizations: : No recent hospitalization is reported. ROS: 18:05 Constitutional: Negative for fever, chills, and weight loss, Eyes: Negative for injury, rn pain, redness, and discharge, ENT: Positive for congestion Neck: Negative for injury, pain, and swelling, Cardiovascular: Negative for chest pain, palpitations, and edema, Respiratory: Positive for cough and mild shortness of breath Abdomen/GI: Positive for nausea MS/Extremity: Negative for injury and deformity, Skin: Negative for injury, rash, and discoloration, Neuro: Positive for generalized weakness Exam: 18:05 Constitutional: This is a well developed, well nourished patient who is awake, alert, rn and in no acute distress. ENT: Dry mucous membranes Cardiovascular: Regular rate and rhythm. No pulse deficits. Respiratory: No increased work of breathing, no retractions or nasal flaring. Abdomen/GI: Soft, no masses, no distention Skin: No cyanosis MS/ Extremity: Pulses equal, no cyanosis. Tenderness and swelling to the right gluteus and posterior to right hip without overlying skin changes or open wounds. Evidence of previous hip surgery. No fluctuance Neuro: Awake and alert, GCS 15, oriented to person, place, time, and situation. Cranial nerves II-XII grossly intact. Motor strength 4/5 in all extremities. Sensory grossly intact. 19:50 ECG was reviewed by the Attending Physician. rn Vital Signs: 17:00 BP 113 / 93; Pulse 92; Resp 17; Temp 97; Pulse Ox 98% on R/A; ko1 18:16 BP 133 / 74; Pulse 90; Resp 16; Pulse Ox 100% on R/A; ko1 19:00 BP 131 / 57; Pulse 94; Resp 18; Pulse Ox 96% ; cp4 20:00 BP 138 / 76; Pulse 103; Resp 18; Pulse Ox 99% ; cp4 21:00 BP 107 / 94; Pulse 99; Resp 18; Pulse Ox 98% ; cp4 MDM: 17:01 Medical Screening Exam initiated rn 19:47 ED course: Consulted with Dr. Hayes, will come and eval patient. . rn 20:30 Differential Diagnosis hematoma, infected hematoma, UTI, viral illness. Data reviewed: rn vital signs, nurses notes, lab test result(s), radiologic studies, CT scan, plain films, and as a result, I will admit patient. Consideration of Admission/Observation Patient was admitted/placed on observation. Escalation of care including admission/observation considered. Independent interpretation of the following test(s) in the Emergency Department CT Scan: My interpretation is CT images show possible fluid collection near the right greater trochanter and inflammation of the right gluteus muscle. Counseling: I had a detailed discussion with the patient and/or guardian regarding the historical points, exam findings, and any diagnostic results supporting the discharge/admit diagnosis, lab results, radiology results. 20:42 ED course: Given findings of possible hematoma versus infected hematoma total CK added rn given possibility of rhabdomyolysis. Dr. Hayes here evaluating patient.. 03/06 17:02 Order name: Blood Culture Adult (2) rn 03/06 17:02 Order name: CBC with Diff; Complete Time: 19:44 rn 03/06 17:02 Order name: CMP; Complete Time: 19:39 rn 03/06 17:02 Order name: Lactate w/ 2H reflex if indic.; Complete Time: 19:39 rn 03/06 17:02 Order name: Protime (+inr); Complete Time: 18:30 rn 03/06 17:02 Order name: Ptt, Activated; Complete Time: 18:30 rn 03/06 17:02 Order name: Urinalysis w/ reflexes; Complete Time: 20:32 rn 03/06 17:02 Order name: SARS RAPID; Complete Time: 18:30 rn 03/06 17:02 Order name: Flu; Complete Time: 18:30 rn 03/06 19:42 Order name: CBC Smear Scan; Complete Time: 19:44 EDMS 03/06 20:39 Order name: CK rn 03/06 20:43 Order name: Ghost Lactate-NO COLLECT Timer; Complete Time: 20:44 EDMS 03/06 17:02 Order name: Chest Single View XRAY; Complete Time: 18:04 rn 03/06 17:02 Order name: CT Abd/Pelvis - IV Contrast Only; Complete Time: 19:39 rn 03/06 17:02 Order name: Accucheck; Complete Time: 17:07 rn 03/06 17:02 Order name: Cardiac monitoring; Complete Time: 17:07 rn 03/06 17:02 Order name: EKG - Nurse/Tech; Complete Time: 17:23 rn 03/06 17:02 Order name: IV Saline Lock - Large Bore; Complete Time: 17:07 rn 03/06 17:02 Order name: Labs collected and sent; Complete Time: 18:15 rn 03/06 17:02 Order name: O2 Per Protocol; Complete Time: 17: rn 03/06 17:02 Order name: O2 Sat Monitoring; Complete Time: 17: rn 03/06 17:02 Order name: Vital Signs; Complete Time: 17:07 rn EC:50 Rate is 93 beats/min. Rhythm is regular. QRS [place] is Normal. [place] interval is normal. QRS rn interval is normal. QT interval is normal. No Q waves. T waves are Normal. No ST changes noted. Clinical impression: NSR w/ Non-specific ST/T Changes. Interpreted by me. Reviewed by me. Administered Medications: 21:12 Drug: vancoMYCIN IVPB 1 grams IVPB once over 2 hrs Route: IVPB; Infused Over: 2 hrs; br2 Site: right antecubital; 21:21 Follow up: Response: No adverse reaction; IV Status: Infusion continued upon admission br2 Disposition Summary: 03/06/24 20:54 Hospitalization Ordered Notes: Hospitalization Status: Inpatient Admission rn Provider: Omega Somers rn [facility] rn Condition: Stable rn Problem: new rn Symptoms: have improved rn Bed/Room Type: Standard rn Room Assignment: rn Diagnosis - Infected hematoma/fluid collection right gluteus near greater trochanter rn Forms: - Medication Reconciliation Form rn - SBAR form rn - Leadership Thank You Letter rn Signatures: Dispatcher [employer] [facility] Geraldine Whelan, SORT WORKER-C SORT WORKER-Csnw Noble Serrano MD MD rn Oliver, Kathy, RN RN ko1 Ada Lamar RN RN br2 Corrections: (The following items were deleted from the chart) 17:02 17:02 BLOOD CULTURE*+BA.LAB.BRZ ordered. [facility] 17:02 17:02 CBC+H.LAB.BRZ ordered. [facility] 17:02 17:02 COMPREHENSIVE METABOLIC PANEL+C.LAB.BRZ ordered. [facility] 17:02 17:02 LACTATE+C.LAB.BRZ ordered. [facility] 17:02 17:02 PROTIME (+INR)+COAG.LAB.BRZ ordered. [facility] 17:02 17:02 PTT, ACTIVATED+COAG.LAB.BRZ ordered. [facility] 17:02 17:02 Urinalysis+U.LAB.BRZ ordered. [facility] 17:02 17:02 SARS-COV-2 Antigen Rapid+I.LAB.BRZ ordered. [facility] 17:02 17:02 Influenza Screen (A \T\ B)+BA.LAB.BRZ ordered. [facility] 17:03 17:03 Chest Single View+RAD.RAD.BRZ ordered. [facility] 19:58 18:05 Constitutional: This is a well developed, well nourished patient who is awake, rn alert, and in no acute distress. ENT: Dry mucous membranes Cardiovascular: Regular rate and rhythm. No pulse deficits. Respiratory: No increased work of breathing, no retractions or nasal flaring. Abdomen/GI: Soft, no masses, no distention Skin: No cyanosis MS/ Extremity: Pulses equal, no cyanosis. Neuro: Awake and alert, GCS 15, oriented to person, place, time, and situation. Cranial nerves II-XII grossly intact. Motor strength 4/5 in all extremities. Sensory grossly intact. rn 20:40 20:40 CREATINE PHOSPHOKINASE+C.LAB.BRZ ordered. EDMS EDMS
[2024-03-06] MEDS: Ringers Lactate 1,000 ML IV ONE (21:20)
[2024-03-06] MEDS ORDERED: propofoL 200 MG/20 ML VIAL IV ONE (21:21)
[2024-03-06] MEDS ORDERED: FENTANYL CITR 100 MCG/2 ML ONE (21:21)
[2024-03-06] MEDS ORDERED: ONDANSETRON 4 MG/2 ML VIAL IV PRN (21:28)
--- NOTE | 2024-03-06 22:29 | P.HP ---
Date of Service: 03/06/24 PC: I was asked to see this 83-year-old female in regards to pain in her right hip with temperature fever and chills HPC: Patient apparently was brought in, complaining of pain in her right hip. She apparently had a fall recently. She was also being investigated for possible blood clots and she may have been on blood thinners. She is not a very good historian. PSHx: Prior right hip replacement surgery PMHx: States she is hypertensive Social Hx: No known allergies Sys R: She states she has been improving good health recently. Not too sure. No shortness of breath, no chest pain, just tremendous pain and pressure in her right hip. O/E: Awake alert vital signs are stable afebrile at the moment HEENT: No jaundice Chest: Air entry equal bilaterally Abd: Soft [place]: Has an area of fullness over the right hip and greater trochanter Data: Elevated white cell count, elevated lactic acid Impression: Fluid collection around the right hip, possible hematoma, possible Plan: This patient appears to be having fever and chills, and has a fluid collection in the right hip area. I called the transfer center for assistance and spoke to an orthopedic surgeon who was able to discuss the case with me. I feel she has noted fluid collection, there may be some infection there. He recommended that the fluid be drained, and if possible a drain be placed. It may be that she has an infected hip appliance, and old hematoma, it can sometimes be difficult to tell. There is also the possible needing of a revision of her hip. These complications were explained to the patient. I will taken the operating room for a incision, drainage of this fluid collection, will obtain cultures, and seek further orthopedic, consultation as needed.
--- NOTE | 2024-03-06 22:32 | P.OP ---
Preoperative diagnosis: Fluid collection of the right hip Postoperative diagnosis: Hematoma of the right Primary procedure: Incision, drainage, hematoma of the right Anesthesia: General Estimated blood loss: Less than 10 cc Specimen: Fluid was sent for cultures both aerobic and anaerobic Operative Technique: The patient was brought the operating room and placed supine on the table. After the induction of adequate anesthesia, she was rolled into the right lateral position. We had done a quick ultrasound in the emergency room to try and isolate where this fluid collection was. The area was found and it is 2 fingers from a skin lashonda that the patient has. This area was now prepped with a Betadine solution after the insertion of a Greer catheter and draped in usual aseptic manner. A #18 spinal needle was brought up to the level of the skin. Basket had our direction towards where we had observed the fluid collection on the ultrasound we were able to obtain approximately 10 cc of thick dark blood consistent with a liquefied hematoma. This fluid was sent for cultures both aerobic and anaerobic. We probed around a few times to try and see we can express anymore. There is syringe was discharged from the needle and it was stopped from the suction itself. On slow withdrawal we were able to obtain approximately another 8 cc of fluid. At this point the wound was inspected to ensure adequate hemostasis. It was closed with a nylon stitch mattress style. A bandage was then applied. At the end of the procedure the patient was in a stable condition when sent back to the recovery room. Needle sponge instrument count were correct. No drains were placed. Transferred to: Recovery Room Condition: Good
[2024-03-06] MEDS: MEPERIDINE HCL 25 MG/ML SYR ONE (22:33)
[2024-03-06 23:09] VITALS: BMI 23.6
[2024-03-06] MEDS: CEFEPIME 2 GM in NA CHLORIDE 0.9% 100 ML IV SCH (23:22)
[2024-03-07] MEDS: Levofloxacin 750mg IV 750 MG/150 ML BAG IV SCH (00:25)
[2024-03-07] MEDS: HYDROMORPHONE HCL 0.5 MG/0.5 ML INJ IV PRN (02:24)
--- NOTE | 2024-03-07 04:34 | P.CNS ---
Date of Consult: 03/07/24 Reason for Consult: Medical management Requesting Physician: Hiro Hayes Chief Complaint: Hematoma History of Present Illness: 83-year-old female with a past medical history hypertension, resents to the emergency room with right hip pain. She reports right hip pain worse with range of motion. She reports previous fall, reports being on anticoagulation, she reports right hip hematoma. Presents for evaluation for DVTs, evaluation of right hip hematoma. She denied hitting her head, no reported shortness of breath, chest pain, abdominal pain, fever. She was admitted for surgical evaluation of right hip hematoma. Hospital medicine to consult to follow medical management. She was take to the OR by Dr. Hayes 03/06 incision, debridement, evaluation of right hip hematoma, 8 cc of dark red fluid removed Laboratory evaluation LALITHA on CKD, BUN 22, creatinine 1.35, estimated GFR 39, lactic acidosis, lactic 2.5, mild leukocytosis 11.1, left shift 86.3 abdominal CTPossible fluid collection at the greater trochanter as well as asymmetric enlargement of the right gluteus musculature. This is new since 08/16/2023. This could be related to recent trauma with intramuscular hematoma if there is a history. Alternatively, this could be secondary to infection and possible abscesses in the appropriate clinical setting. Chest x-ray no acute abnormality Allergies No Known Drug Allergies Allergy (Verified 11/01/23 03:55) Unknown Home Medications: Amlodipine [Norvasc*] 1 tab PO DAILY 11/01/23 Donepezil HCl 1 tab PO BID 11/01/23 Levothyroxine [Synthroid*] 1 tab PO DAILY 11/01/23 Olmesartan Medoxomil 1 tab PO DAILY 11/01/23 predniSONE [Prednisone*] 20 mg PO DAILY #90 tab 11/04/23 - Past Medical/Surgical History Diabetic: No -: HTN -: Hypothroid -: Hyperlipidemia -: MILD COGNITIVE IMPAIRMENT -: Carpel Tunnel -: eye surgery (cannot remember) -: Hip surgery - Family History Mother Medical History: Heart disease Notes: Alzheimers, lived into 90's Father Medical History: Heart disease - Social History Smoking Status: Former smoker Alcohol use: No CD- Drugs: No Caffeine use: Yes Review of Systems 10-point ROS is otherwise unremarkable General: As per HPI Physical Examination Temp Pulse Resp BP Pulse Ox 98.0 F 88 18 117/56 L 94 03/07/24 03:58 03/07/24 03:58 03/07/24 03:58 03/07/24 03:58 03/07/24 03:58 General: Alert, In no apparent distress, Oriented x3 HEENT: Atraumatic, Normocephalic Neck: 2+ carotid pulse no bruit, JVD not distended Respiratory: Clear to auscultation bilaterally, Normal air movement Cardiovascular: Regular rate/rhythm, Normal S1 S2 Capillary refill: <2 Seconds Gastrointestinal: Normal bowel sounds, Soft and benign Musculoskeletal: Other (Generalized weakness) Integumentary: Other (Right hip hematoma) Laboratory Data (last 24 hrs) 03/06/24 03/06/24 03/06/24 18:05 18:05 18:05 WBC 11.10 H Hgb 13.5 Hct 40.9 Plt Count 221 PT 16.2 H INR 1.46 APTT 35.4 Sodium 139 Potassium 4.2 BUN 22 H Creatinine 1.35 H Glucose 101 Total Bilirubin 1.0 AST 12 L ALT < 14 Alkaline Phosphatase 68 - Problems (1) Hematoma Current Visit: Yes Status: Acute (2) Fall Current Visit: Yes Status: Acute (3) Acute kidney injury superimposed on CKD Current Visit: Yes Status: Acute (4) HTN (hypertension) Current Visit: No Status: Acute (5) Lactic acidosis Current Visit: Yes Status: Acute (6) History of deep vein thrombosis Current Visit: Yes Status: Acute (7) Chronic anticoagulation Current Visit: Yes Status: Acute Conclusions/Impression: Assessment plan Surgery to consult for right hip hematoma Status post incision and drainage 03/06 Dr. Hayes CKD, LALITHA, gentle IV fluids, IV antibiotics, As needed analgesics, Fall precaution Cardiac diet Trend cultures, lactic, WBC History of DVTs On Eliquis 5 mg twice daily Critical Care: No Time Spent Managing Pts care (In Minutes): 45
[2024-03-07 05:36] LABS: Absolute Lymphocytes (CBC) 1.4 K/uL (0.7-4.9); Absolute Monocytes 0.8 K/uL (0.1-1.3); Absolute Neutrophil 7.5 K/uL (1.8-8.0); Basophils % 0.2 % (0-1.3); Eosinophils % 0.5 % (0-4.4); Hematocrit 33.4 % (36.0-45.0); Hemoglobin 11.2 g/dL (12.0-15.0); Lymphocytes % 14.5 % (15.3-44.8); MCH 33.8 pg (27.0-35.0); MCHC 33.4 g/dL (32.0-36.0); MCV 101.3 fL (80-100); MPV 7.8 fL (7.6-11.3); Monocytes % 7.7 % (3.3-12.3); Neutrophils % 77.1 % (41.7-73.7); Platelets 169 thou/uL (152-406); Red Cell Distribution Width 15.2 % (12.1-15.2)
[2024-03-07 05:53] LABS: AST/SGOT 12 U/L (15-37); Albumin 2.8 g/dL (3.4-5.0); Albumin/Globulin Ratio 0.9 (1.1-1.8); Alkaline Phosphatase 54 U/L (45-117); Anion Gap 9.9 mEq/L (5.0-15.0); BUN Blood Urea Nitrogen 23 mg/dL (7-18); Bicarbonate 28 mEq/L (21-32); Bilirubin Total 0.9 mg/dL (0.2-1.0); Globulin 3.1 g/dL (2.3-3.5); Glomerular Filtration Rate 47 ml/min (=/>90); Glucose Level 88 mg/dL (74-106); Magnesium 1.9 mg/dL (1.6-2.4); Potassium 3.9 mEq/L (3.5-5.1); Protein, Total 5.9 g/dL (6.4-8.2); Sodium Level 139 mEq/L (136-145)
[2024-03-07 06:01] LABS: ALT/SGPT < 14 U/L (13-56)
[2024-03-07] MEDS: HYDROCODONE/APAP 5/325 MG TAB PO PRN (07:14)
[2024-03-07] MEDS: FLU (Fluarix Triv) TS24-25(6MOS UP)/PF 45 MCG/0.5 ML Syringe IM ONE (07:45)
[2024-03-07] MEDS: predniSONE 10 MG TAB PO SCH (16:52)
[2024-03-07] MEDS: TRAMADOL HCL 50 MG TAB PO PRN (20:27)
[2024-03-07] MEDS: APIXABAN 5 MG TABLET PO SCH (20:28)
[2024-03-08] MEDS: POTASSIUM CL SA 10 MEQ TAB PO ONE (09:00)
[2024-03-08] MEDS: dexAMETHasone 4 MG/ML VIAL IV SCH (11:10)
--- NOTE | 2024-03-08 12:21 | EKG ---
Test Date: 2024-03-06 Test Time: 17:17:36 Social Worker Palliative Care: ALP MEASUREMENT RESULTS: Intervals: Rate: 93 AL: 198 QRSD: 80 QT: 370 QTc: 460 [place]: P: 85 AL: 198 QRS: 83 T: 71 INTERPRETIVE STATEMENTS: Normal sinus rhythm with sinus arrhythmia ST abnormality, possible digitalis effect Abnormal ECG Compared to ECG 10/31/2023 13:00:52 Atrial premature complex(es) no longer present ST (T wave) deviation still present Electronically Signed On 03-08-24 12:16:45 CDT by Eliazar Rosen
--- NOTE | 2024-03-08 21:10 | P.HP ---
Patient History Date of Service: 03/07/24 Reason for admission: Hematoma History of Present Illness: MARLYN CAME TO ER FOR DIFFUSE PAIN. SHE HAS FALLEN A FEW TIMES AT HOME. SHE LIVES ALONE. SHE HAS RECENTLY BEEN DIAGNOSED WITH DVT AND IS ON FIRST WEEK OF ELIQUIS. I CALLED [facility]IECE TO MAKE SURE WE LOOK INTO A NH FOR LIFETIME HER DEMENTIA IS SIGNIFICANT AND SHE LIVES ALONE. DR. BLANC MADE SHURE THAT HEMATOMA IS NOT INFECTED. Allergies No Known Drug Allergies Allergy (Verified 11/01/23 03:55) Unknown Home medications list reviewed: Yes Home Medications: Amlodipine [Norvasc*] 1 tab PO DAILY 11/01/23 Donepezil HCl 1 tab PO BID 11/01/23 Levothyroxine [Synthroid*] 1 tab PO DAILY 11/01/23 Olmesartan Medoxomil 1 tab PO DAILY 11/01/23 predniSONE [Prednisone*] 20 mg PO DAILY #90 tab 11/04/23 - Past Medical/Surgical History Has patient received pneumonia vaccine in the past: Yes Diabetic: No -: HTN -: Hypothroid -: Hyperlipidemia -: MILD COGNITIVE IMPAIRMENT -: Carpel Tunnel -: eye surgery (cannot remember) -: Hip surgery - Family History Mother -: Heart disease Notes: Alzheimers, lived into 90's Father -: Heart disease - Social History Smoking Status: Former smoker Alcohol use: No CD- Drugs: No Caffeine use: Yes Review of Systems 10-point ROS is otherwise unremarkable General: Weakness Physical Examination - Vital Signs Temperature: 99.1 F Blood Pressure: 116/52 Pulse: 78 Respirations: 16 Pulse Ox (%): 92 - Physical Exam General: Oriented x3, Moderate distress HEENT: Atraumatic, PERRLA, Mucous membr. moist/pink, EOMI, Sclerae nonicteric Neck: Supple, 2+ carotid pulse no bruit, No LAD, Without JVD or thyroid abn ormality Respiratory: Clear to auscultation bilaterally, Normal air movement Cardiovascular: Regular rate/rhythm, Normal S1 S2 Gastrointestinal: Normal bowel sounds, No tenderness Musculoskeletal: No tenderness Integumentary: No rashes Neurological: Normal gait, Normal speech, Normal strength at 5/5 x4 extr, Normal tone, Normal affect Lymphatics: No axilla or inguinal lymphadenopathy Assessment and Plan - Problems (Diagnosis) (1) Frequent falls Current Visit: Yes Status: Chronic Plan: HPI I ADVISE NH SHE IS ELDERLY AND HAS PMR (2) DVT (deep venous thrombosis) Current Visit: Yes Status: Acute Plan: CONTINUE ELIQUIS (3) Alzheimer disease Current Visit: Yes Status: Chronic Plan: GRADUALLY WORSE. UNSAFE AT HOME. (4) Neck pain Onset Date: 06/04/14 Current Visit: No Status: Chronic - Advance Directives Does patient have a Living Will: Yes Does patient have a Durable POA for Healthcare: No
--- NOTE | 2024-03-08 21:12 | P.PN ---
Subjective Date of Service: 03/08/24 Chief Complaint: Hematoma Subjective: Improving PAIN ALL OVER. SHE IN PAST RESPONDED WELL TO IV STEROIDS FOR PMR. Review of Systems 10-point ROS is otherwise unremarkable General: Weakness Physical Examination - Vital Signs Temperature: 99.1 F Blood Pressure: 116/52 Pulse: 78 Respirations: 16 Pulse Ox (%): 92 - Physical Exam General: Alert, In no apparent distress, Acute distress, Mild distress, Confused HEENT: Atraumatic, PERRLA, EOMI Neck: Supple, JVD not distended Respiratory: Clear to auscultation bilaterally, Normal air movement Cardiovascular: Regular rate/rhythm, Normal S1 S2 Gastrointestinal: Normal bowel sounds, No tenderness Musculoskeletal: No tenderness Integumentary: No rashes Neurological: Normal speech, Normal tone, Normal affect Lymphatics: No axilla or inguinal lymphadenopathy - Studies Medications List Reviewed: Yes Assessment And Plan - Current Problems (Diagnosis) (1) Frequent falls Current Visit: Yes Status: Chronic Plan: HPI I ADVISE NH SHE IS ELDERLY AND HAS PMR (2) DVT (deep venous thrombosis) Current Visit: Yes Status: Acute Plan: CONTINUE ELIQUIS (3) Alzheimer disease Current Visit: Yes Status: Chronic Plan: GRADUALLY WORSE. UNSAFE AT HOME. (4) Neck pain Onset Date: 06/04/14 Current Visit: No Status: Chronic (5) PMR (polymyalgia rheumatica) Current Visit: Yes Status: Chronic Plan: BOOST WITH IV STEROIDS FOR A FEW DAYS. SHE RESPONDED WELL TO IT LAST ADMISSION. AFTER THAT WILL SLOW DOWN IN THE DOSE.
[2024-03-08] MEDS: ENSURE ENLIVE 237 ML CAN PO SCH (22:04)
--- NOTE | 2024-03-09 01:49 | CON ---
Date of Consultation: 03/07/2024 History Of Present Illness: This is my first time seeing this patient to my knowledge. She was admi tted the day prior to me seeing her, as she had apparently fallen and had a CT scan, which demonstrat ed what was apparently a large fluid collection near her right hip and buttock. They consulted Gener al Surgery at that time, and I spoke with the general surgeon who felt that she may have had an infec tious process and they underwent an aspiration with a small open drainage, which revealed essentially very dark blood consistent with hematoma. I am called by the primary care physician as although she has a CT scan which does not show any fractures, also would like to have my opinion regarding this a nd I come to see her. Physical Examination: She is complaining of pain essentially all over. She has pain with movement of either of her lower e xtremities. Her pain is mostly, however, on her right side posterior aspect of her hip. There are s ome bandages here from the aspiration and procedure. There does not appear to be any large or visibl e fluid collection, although there is some bruising. She is noted to move her right hip around fairl y well, although does complain of pain in this area as well as in her lower back. Gentle passive ran ge of motion of both hips does not cause any increased pain. Imaging: Review of the CT scan does reveal the fluid collection, but no overt fracture is seen. She does have a previous right total hip arthroplasty, which was done by another physician, which does n ot have any overt problem seen. Assessment: This is an 83-year-old female who unfortunately fell with a hematoma along the right hip . No overt fracture or dislocation is seen. There is a possibility she may have some sacral insuffi ciency fractures, which were not well seen without MRI. However, these would most surely be treated with early mobility as tolerated and no operative intervention. I discussed the findings with both jung castellanos general surgeon and primary care physician, and they will let me know if she needs further investigat ion or followup. /GABRIELLE Voice ID: [id number] Report ID: [id number]
[2024-03-09 06:46] LABS: Albumin/Globulin Ratio 0.8 (1.1-1.8); Alkaline Phosphatase 57 U/L (45-117); Bilirubin Total 0.6 mg/dL (0.2-1.0); Globulin 3.6 g/dL (2.3-3.5); Protein, Total 6.6 g/dL (6.4-8.2)
[2024-03-09 06:49] LABS: ALT/SGPT < 14 U/L (13-56); AST/SGOT < 10 U/L (15-37); Bilirubin Direct < 0.2 mg/dL (0-0.2); Bilirubin Indirect, Calculated 0.4 mg/dL (0.2-0.8)
--- NOTE | 2024-03-09 15:42 | P.PN ---
Subjective Date of Service: 03/09/24 Chief Complaint: Hematoma Subjective: Improving PAIN ALL OVER. SHE IN PAST RESPONDED WELL TO IV STEROIDS FOR PMR. AFTER IV STEROIDS HER PAIN ALL OVER HAS IMPROVED. SHE WAS VERY UNCOMFORTABLE WITH PAIN. SHE HAD HIGH CRP ON LAST ADMISSION. Review of Systems 10-point ROS is otherwise unremarkable General: Weakness Physical Examination - Vital Signs Temperature: 98.2 F Blood Pressure: 115/57 Pulse: 67 Respirations: 17 Pulse Ox (%): 93 - Physical Exam General: Oriented x1, Mild distress, Confused HEENT: Atraumatic, PERRLA, EOMI Neck: Supple, JVD not distended Respiratory: Clear to auscultation bilaterally, Normal air movement Cardiovascular: Regular rate/rhythm, Normal S1 S2 Gastrointestinal: Normal bowel sounds, No tenderness Musculoskeletal: No tenderness Integumentary: No rashes Neurological: Normal speech, Normal tone, Normal affect Lymphatics: No axilla or inguinal lymphadenopathy - Studies Medications List Reviewed: Yes Assessment And Plan - Current Problems (Diagnosis) (1) Frequent falls Current Visit: Yes Status: Chronic Plan: HPI I ADVISE NH SHE IS ELDERLY AND HAS PMR (2) DVT (deep venous thrombosis) Current Visit: Yes Status: Acute Plan: CONTINUE ELIQUIS (3) Alzheimer disease Current Visit: Yes Status: Chronic Plan: GRADUALLY WORSE. UNSAFE AT HOME. (4) Neck pain Onset Date: 06/04/14 Current Visit: No Status: Chronic (5) PMR (polymyalgia rheumatica) Current Visit: Yes Status: Chronic Plan: BOOST WITH IV STEROIDS FOR A FEW DAYS. SHE RESPONDED WELL TO IT LAST ADMISSION. AFTER THAT WILL SLOW DOWN IN THE DOSE. CHANGE TO ORAL STEROIDS FROM AM. SHE WILL BE ON 40 MG DAILY. I WILL HAVE HOSPTIAL DOCTORS FOLLOW HER UNTIL TUESDAY. WE ARE STILL WAITING FOR NH PLACEMENT. I ADVISE FAMILY FOR GLOBAL LEAD. SHE SHOULD NOT GO HOME ALONE.
[2024-03-09] MEDS: predniSONE 20 MG TAB PO SCH (16:34)
[2024-03-10] MEDS: LEVOTHYROXINE SOD 0.075 MG TAB PO SCH (06:57)
--- NOTE | 2024-03-10 08:53 | P.PN ---
Subjective Date of Service: 03/10/24 Chief Complaint: Hematoma Subjective: Improving (No new complaints of multiple falls) Review of Systems is unable to be obtained Physical Examination - Vital Signs Temperature: 98.5 F Blood Pressure: 118/53 Pulse: 63 Respirations: 16 Pulse Ox (%): 94 - Physical Exam General: Alert, Unresponsive Respiratory: Clear to auscultation bilaterally Cardiovascular: No edema, Normal pulses - Studies Medications List Reviewed: Yes Assessment And Plan - Current Problems (Diagnosis) (1) Alzheimer disease Current Visit: Yes Status: Chronic Plan: Patient has end-stage dementia during intermediate placement history of polymyalgia rheumatica also has a history of falls with a right-sided hematoma with chemistries all reviewed stable signs satisfactory
[2024-03-10] MEDS ORDERED: RIVASTIGMINE 4.6 MG/24 HR PATCH TD SCH (09:00)
--- NOTE | 2024-03-11 10:07 | P.PN ---
Subjective Date of Service: 03/11/24 Chief Complaint: Pain lower back Subjective: Improving (Patient has slight discomfort due to lying in the bed otherwise no new complaints) Review of Systems Unremarkable General: Weakness Physical Examination - Vital Signs Temperature: 97.8 F Blood Pressure: 121/67 Pulse: 62 Respirations: 16 Pulse Ox (%): 95 - Physical Exam General: Alert, In no apparent distress, Oriented x3 Respiratory: Clear to auscultation bilaterally Cardiovascular: No edema, Normal pulses - Studies Medications List Reviewed: Yes Assessment And Plan - Current Problems (Diagnosis) (1) Alzheimer disease Current Visit: Yes Status: Chronic Plan: No new change globin is stable white count is back to normal patient is on steroids for polymyalgia rheumatica awaiting residential placement signs oxygenation satisfactory setting with physical therapy
[2024-03-12] MEDS: GABAPENTIN 100 MG CAP PO SCH (20:54)
[2024-03-13 05:37] LABS: Anion Gap 5.6 mEq/L (5.0-15.0); Phosphorus 2.9 mg/dL (2.5-4.9); Potassium 4.6 mEq/L (3.5-5.1)
--- NOTE | 2024-03-13 07:51 | PN ---
Subjective: The patient is stable. She has chronic pain and moderate dementia. Also, her bed is un comfortable. She continues to have pain because of the bed and is already on tramadol for pain. I a m adding gabapentin for pain. I am trying to avoid heavy narcotics because of continued confusion. Physical Examination: Vital Signs: Stable. Chest: Clear. Heart: Regular. Abdomen: No guarding, no rebound, no rigidity. Extremities: Hematoma on the right thigh region is stable. There is no sign of any broken bones acc ording to orthopedic doctor. Assessment And Plan: Placement is what we need. We are waiting for long-term placement by the in [id number]. Even if she does get approved, she should be still in long-term for lifetime. I think at this point, she is needing 24 hour care. The patient's family is aware and we waiting for answer from the insurance company. JORGE/GABRIELLE Voice ID: [id number] Report ID: [id number]
[2024-03-13 09:04] VITALS: O2SAT 98
[2024-03-13 16:41] VITALS: BP 103/53; TEMP 98.2
== END 2024-03-13 18:52 | DRG 605 ==
LOC: ER 16:56 → 2ND 21:26
PROVIDERS: ADMIT Hospitalist; ATTEND Internal Medicine
PROC: 0S993ZZ Drainage of Right Hip Joint, Percutaneous Approach (ICD-10-PCS; principal; 2024-03-06 21:15)
PROC: 0T9B70Z Drainage of Bladder with Drainage Device, Via Natural or Artificial Opening (ICD-10-PCS; 2024-03-07)
DX: S70.01XA Contusion of right hip, initial encounter (principal); M62.82 Rhabdomyolysis; N17.9 Acute kidney failure, unspecified; E87.20 Acidosis, unspecified; E78.00 Pure hypercholesterolemia, unspecified; I12.9 Hypertensive chronic kidney disease with stage 1 through stage 4 chronic kidney disease, or unspecified chronic kidney disease; N18.9 Chronic kidney disease, unspecified; M54.2 Cervicalgia; D72.829 Elevated white blood cell count, unspecified; M31.5 Giant cell arteritis with polymyalgia rheumatica; G30.9 Alzheimer's disease, unspecified; F02.B0 Dementia in other diseases classified elsewhere, moderate, without behavioral disturbance, psychotic disturbance, mood disturbance, and anxiety; R29.6 Repeated falls; Z60.2 Problems related to living alone; Z91.81 History of falling; Z11.52 Encounter for screening for COVID-19; Z79.01 Long term (current) use of anticoagulants; Z79.52 Long term (current) use of systemic steroids; Z79.890 Hormone replacement therapy; Z96.641 Presence of right artificial hip joint; Z79.899 Other long term (current) drug therapy; Z87.891 Personal history of nicotine dependence; Z86.718 Personal history of other venous thrombosis and embolism
CPT/HCPCS: 36415; 71045; 74177; 80048; 80053; 80076; 81001; 82550; 83605; 83735; 84100; 85025; 85610; 85730; 87040; 87070; 87075; 87205; 87804; 87811; 93005; 96374; 97116; 97161; 97530; 99285; J0692; J1100; J1171; J2175; J2704; J3010; J7050; J7120; J7512; Q9967

== ENCOUNTER 2024-07-04 10:19 | Day surgery (SDC) | payer BC ==
[2024-06-29 11:00] LABS: Absolute Lymphocytes (CBC) 1.9 K/uL (0.7-4.9); Absolute Monocytes 0.4 K/uL (0.1-1.3); Absolute Neutrophil 7.8 K/uL (1.8-8.0); Basophils % 0.4 % (0-1.3); Eosinophils % 0.5 % (0-4.4); Hematocrit 43.2 % (36.0-45.0); Hemoglobin 14.6 g/dL (12.0-15.0); Lymphocytes % 18.2 % (15.3-44.8); MCH 33.1 pg (27.0-35.0); MCHC 33.8 g/dL (32.0-36.0); MCV 97.9 fL (80-100); Monocytes % 4.1 % (3.3-12.3); Neutrophils % 76.8 % (41.7-73.7); Platelets 205 thou/uL (152-406); RBC Red Blood Cell Count 4.41 M/uL (3.86-4.86); Red Cell Distribution Width 14.2 % (12.1-15.2)
[2024-06-29 11:04] LABS: PT Prothrombin Time 16.6 SECONDS (9.4-12.5); PTT, Activated Partial Thromb 43.3 SECONDS (24.3-36.9); Protime INR 1.59
[2024-06-29 11:16] LABS: Anion Gap 7.7 mEq/L (5.0-15.0); Potassium 3.7 mEq/L (3.5-5.1)
[2024-07-04] MEDS: Ringers Lactate 1,000 ML IV ONE (11:00)
[2024-07-04] MEDS: SILVER SULFADIAZINE 1% 25 GM TOP ONE (11:30)
[2024-07-04] MEDS ORDERED: propofoL 200 MG/20 ML VIAL IV ONE (11:59)
[2024-07-04] MEDS ORDERED: ONDANSETRON 4 MG/2 ML VIAL ONE (11:59)
[2024-07-04] MEDS ORDERED: LIDOCAINE 2% MPF 5 ML VIAL ONE (11:59)
[2024-07-04] MEDS ORDERED: FENTANYL CITR 100 MCG/2 ML ONE (11:59)
[2024-07-04] MEDS: LIDOCAINE HCL/EPINEPHRINE 20 ML MDV ONE (12:51)
--- NOTE | 2024-07-04 12:53 | P.OP ---
Preoperative diagnosis: Exophytic Upper Back Skin Mass Postoperative diagnosis: Exophytic Upper Back Skin Mass Primary procedure: Wide local excision of Exophytic Upper Back Skin Mass Anesthesia: GETA + Local Estimated blood loss: <5cc Specimen: Exophytic Upper Back Skin Mass Findings: 2cm Exophytic Upper Back Skin Mass Complications: None Transferred to: Recovery Room Condition: Good
[2024-07-04 13:33] VITALS: O2SAT 100
[2024-07-04 15:31] VITALS: BP 132/50; TEMP 97
--- NOTE | 2024-07-04 18:39 | OP ---
Date of Procedure: 07/04/2024 Surgeon: Eric Bermudez MD, Preoperative Diagnosis: Exophytic upper back skin mass. Postoperative Diagnosis: Exophytic upper back skin mass. Procedure Performed: Wide local excision of exophytic upper back skin mass. Anesthesia: General endotracheal plus local with 1% lidocaine. Estimated Blood Loss: Less than 5 cc. Specimen: Exophytic upper skin back mass. Findings: 2 cm exophytic upper back skin mass, nonpigmented, with central ulceration. Complications: None. Disposition: The patient transferred to recovery room in good condition. Procedure In Detail: After informed consent was obtained, patient was brought to the operating room, prepped and draped in the usual sterile fashion, after adequate anesthesia was achieved. I measured the upper central back mass using a ruler. It was found to be approximately 2 cm in size, exophytic , approximately 1 cm tall with central necrosis. I then measured off a 1.5 cm margin on the edges an d a 2 cm margin along the long axis to make an elliptical type incision. I anesthetized the planned excision tract. Ultimately, I used a 15 blade down to subcutaneous tissues and used electrocautery t o remove this skin ellipse all the way down to the adipose tissue and sent it off for pathologic exam ination, after placing marking sutures, short superior, long left lateral. At this point, the area w as copiously irrigated. Hemostasis was minimally required in the area. The area was copiously irrig ated once again and closed with 3-0 nylon sutures and a sterile dressing placed over top. The patien t tolerated the procedure without incident or complication, transferred to PACU in good condition. A ll counts were correct at the end of the case. TK/MODL Voice ID: [id number] Report ID: [id number]
== END 2024-07-04 14:45 | disposition home or self-care (01) ==
LOC: OR 10:19
PROVIDERS: ATTEND Surgery
PROC: 0HB6XZZ Excision of Back Skin, External Approach (ICD-10-PCS; principal; 2024-07-04 12:45)
DX: C44.529 Squamous cell carcinoma of skin of other part of trunk (principal); I10 Essential (primary) hypertension; E78.00 Pure hypercholesterolemia, unspecified
CPT/HCPCS: 36415; 80048; 85025; 85610; 85730; 88305; J2003; J2405; J2704; J3010; J7120